=== PATIENT | male | born 1940 | race Caucasian/White ===

== ENCOUNTER 2017-02-27 12:51 | Outpatient (RCR) | payer MEDICARE, OTHER | END 2017-03-03 | disposition home or self-care (01) | PROVIDERS: ATTEND Family Medicine | DX: M15.0 Primary generalized (osteo)arthritis; M25.551 Pain in right hip ==

== ENCOUNTER 2017-11-28 14:03 | Inpatient (IN) | payer MEDICARE, OTHER ==
[~2017-11-28] VITALS: Ht 190.5 cm; Wt 122.3 kg
[2017-11-28 17:00] VITALS: BP 107/65
[2017-11-28] MEDS ORDERED: IBUPROFEN TABLET 200 MG TAB PO PRN (17:15)
[2017-11-28] MEDS ORDERED: DIAZEPAM 5 MG (VALIUM) TABLET PO PRN (17:15)
--- NOTE | 2017-11-28 18:00 | HISTORY AND PHYSICAL ---
DATE OF SERVICE: 11/28/2017 CHIEF COMPLAINT: Difficulty with walking. HISTORY OF PRESENT ILLNESS: The patient is a 77-year-old male who has had progressive difficulty with managing home alone in [place], but has supportive neighbors who found him unable to stand due to a fall with right knee pain. He was admitted to [facility] on 11/26/2017 and was found to have principal diagnosis of right knee pain after imaging studies done. He was provided with a knee brace. Therapies were begun. He was felt to be appropriate for inpatient rehabilitation. Currently, he requires assistance for his ADLs and mobility skills. 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 He has an abrasion over the right knee and some swelling and tenderness to touch. He is retired from [email or web address].He is min assist for transfers and gait with Fww.He is dependent for lower body dressing and min assist for Upper body dressing PAST MEDICAL HISTORY: Right-sided weakness, has been seen by neurosurgery with no evidence of impingement of cervical spine according to the patient. He has had electrodiagnostic studies with Dr. Horner in the past revealing some nerve impingement in the right arm, explaining for the weakness in his dominant right arm. History of hypertension, GERD. PAST SURGICAL HISTORY: He has had lithotripsy for kidney stones. He also carries a diagnosis of diverticulosis and right carpal tunnel syndrome. He states his right knee demetrius when he walks. ALLERGIES: No known medication allergies. FAMILY HISTORY: Noncontributory. SOCIAL HISTORY: Essentially as per above. REVIEW OF SYSTEMS: A 10-point review of systems significant for right knee pain, right arm weakness, falls. MEDICATIONS: Cranberry 400 mg p.o. daily, diazepam 5 mg p.o. q.6 hours as needed for anxiety, Cymbalta 30 mg p.o. daily, ibuprofen 400 mg p.o. q.6 hours as needed for pain, omeprazole 60 mg p.o. daily, vitamin B6 50 mg p.o. daily, valsartan/hydrochlorothiazide 160/12.5 mg one tablet p.o. daily. PHYSICAL EXAMINATION: GENERAL: Very pleasant male, appearing his stated age, lying in bed, in no acute distress. VITAL SIGNS: Within normal limits. He is afebrile. HEENT: Vision, speech, hearing grossly intact. No oral lesion is noted. NECK: Supple without mass. HEART: Regular rhythm. CHEST: Clear. ABDOMEN: Soft, nontender, bowel sounds present. EXTREMITIES: He has an abrasion over the right knee. His right leg is in a brace, MUSCULOSKELETAL: He has functional passive range of motion both upper limbs and left lower limb. NEUROLOGIC: He does have a mild weakness on the right as compared to the left upper limb. He is able to plantar and dorsiflex the rightfoot. He has functional strength on the left.Strength good BU Limbs. ROM RT knee 85 degrees and extension +5 degrees. Sensation is grossly intact to touch. Cognition grossly intact. IMPRESSION: 1. Ambulatory dysfunction secondary to fall with resulting right knee strain and abrasion right knee. 2. Right upper limb weakness, felt to be due to impingement syndrome. 3. Reactive anxiety, on medication. 4. Hypertension, controlled with medication. 5. Gastroesophageal reflux disease, on medication. PLAN: The patient will have a comprehensive program of inpatient rehabilitation with goal of maximizing level of functional independence prior to discharge home with family and home health care. The patient will have PT, OT 90 minutes per day each discipline, 5 days a week for 10 days with the above goals in mind. Please see post-admission physician evaluation, which is a separate document for details of plan of care. Speech therapy to do cognitive assessment and treat as indicated. Rehabilitation nursing to assist with bowel, bladder, skin, wound care, medication administration, pain management. office services representative to assist with discharge planning, community reentry. Consult Dr. Lowe to assist with medical management of this out of town patient. ESTIMATED LENGTH OF STAY: 10 days. PROGNOSIS: Rehab prognosis appears fair for goal of discharging back to his home, modified independent to supervision of ADLs and mobility skills. He may need to consider assisted living facility or moving closer to his family upon discharge. His next door neighbors present to unit with him today. DIET: Regular. CODE STATUS: Full code. Job ID: [id number] DocumentID: [id number] Dictated Date: 11/28/2017 17:22:53 Coin Dealer Date: 11/28/2017 17:59:39 Dictated By: KARISSA GIORDANO MD MTDD
--- NOTE | 2017-11-28 19:29 | PM&R Post Admission Assessment ---
Post Admission Physician Asses Date seen by provider: Nov 28, 2017 Time seen by provider: 19:00 Admisison Dx: (1) Knee strain Status: Acute The preadmission screen agrees with the post admission assessment that the patient is a good candidate for inpatient rehabilitation. The patient will have a comprehensive program of inpatient rehabilitation with a goal of maximizing level of functional independence prior to discharge home with family and HHC. The patient will have PT/OT ninety minutes per day, each discipline, five days a week for gait, strengthening, conditioning, balance, ADLs, any patient/family/caregiver training as necessary. Speech therapy to do cognitive assessment and treat as indicated. Rehabilitation nursing to assist with bowel, bladder, skin, wound care, medication administration, pain management. Wood Casket Maker to assist with discharge planning, community reentry. SCD's for DVT prophylaxis. He appears to be well motivated to participate in three hours of therapy a day. He should be able to tolerate three hours of therapy a day from a medical standpoint. He should benefit from the three hours of therapy a day. He has a reasonable discharge plan, reasonable discharge rehabilitation goals and a supportive family. He has various comorbidities that need to be closely monitored with medications and treatments adjusted on a daily basis as needed. These include: HTN GERD CTS Barriers to discharge for this patient who had been independent prior to this are for him to be modified independent to supervision for ADLs and mobility skills prior to discharge home with family and HHC, so as to lessen the burden of the caregivers. Risks for this patient include: 1. Fall 2. Fracture 3. DVT 4. Pulmonary embolism 5. Wound infection 6. Skin breakdown 7. Contractures 8. Poorly controlled pain 9. Urinary retention 10. UTI 11. Respiratory infection 12. Aspiration 13. Poorly controlled HTN 14. Worsening pain and knee contractures Estimated Length of Stay: 14 days Prognosis: Rehab prognosis appears good for goal of discharge home with family and HHC modified independent to supervision for ADLs and mobility skills. General: Alert, Oriented X3, Cooperative, No Acute Distress HEENT: Atraumatic, PERRLA, EOMI, Mucous Memb Moist/[place] Neck: Supple, No JVD Lungs: Clear to Auscultation Heart: Regular Rate Abdomen: Normal Bowel Sounds, Soft, No Tenderness Extremities: Other (swelling rt knee) Skin: Other (Abrasion rt knee) Neuro: Other (Good - strength RUE Good on left Rt Knee in brace Cognitively intact) KARISSA GIORDANO MD Nov 28, 2017 19:29
[2017-11-28] MEDS ORDERED: PREPARATION H OINTMENT 57 GR TUBE PR PRN (19:30)
[2017-11-28] MEDS ORDERED: HEMORRHOIDAL SUPP (PREPARATION H) PR PRN (19:30)
[2017-11-28] MEDS: HYDROcodone/APAP 7.5 MG/325 MG (LORTAB, LORCET PLUS) TABLET PO PRN (20:17)
[2017-11-29 05:09] VITALS: BP 126/74
[2017-11-29] MEDS: PYRIDOXINE (VITAMIN B-6) 50 MG TABLET PO SCH (06:37)
[2017-11-29] MEDS: PANTOPRAZOLE 20 MG TABLET (PROTONIX) PO SCH (06:37)
[2017-11-29] MEDS: HYDROcodone/APAP 7.5 MG/325 MG (LORTAB, LORCET PLUS) TABLET PO PRN ×2 (06:39→17:38)
[2017-11-29] MEDS: DULoxetine 30 MG (CYMBALTA) CAP PO SCH (08:39)
[2017-11-29] MEDS: VALSARTAN 160 MG (DIOVAN) TABLET PO SCH (08:39)
[2017-11-29] MEDS: HYDROCHLOROTHIAZIDE 12.5 MG (HCTZ) CAP PO SCH (08:39)
--- NOTE | 2017-11-29 08:39 | Consultation ---
History of Present Illness History of Present Illness Patient Consulted On(nguyễn/time) 11/29/17 08:31 Time Seen by Provider: 08:30 History of Present Illness Chief complaint debility. Problem with his right knee. Wears a brace. Patient lives alone. Patient has carpal tunnel of his right upper extremity. Patient associates surgery year ago. Patient has dizziness. Patient now constipated does take hydrocodone for pain. Patient has history of hypertension. Patient has history of GERD. One year ago patient had cystoscopy Allergies and Home Medications Allergies Coded Allergies: No Known Drug Allergies (Unverified , 11/28/17) Patient Home Medication List Home Medication List Reviewed: Yes Past Anarsex-Jznvsy-Fozbbs Hx Patient Social History Alcohol Use: Denies Use Recreational Drug Use: No Smoking Status: Former Smoker Former Smoker, Quit: Jun 04, 2005 Recent Foreign Travel: No Contact w/Someone Who Travel: No Recent Infectious Disease Expo: No Recent Hopitalizations: Yes (Ana VALENTIN) Immunizations Up To Date Date of Pneumonia Vaccine: Mar 30, 2017 Seasonal Allergies Seasonal Allergies: No Past Medical History Respiratory: Yes (uses Albuterol inhaler prn, not often) Currently Using CPAP: No Cardiac: Yes Neurological: No Genitourinary: Yes (sees Dr. Win as urologist, has 1 stone & 1 cyst in Lt kidney) Kidney Stones Gastrointestinal: Yes (sees Dr. Asif, had a scope recently was -) Gastroesophageal Reflux, Diverticulosis Musculoskeletal: Yes (Rt knee demetrius, falls) Arthritis, Chronic Back Pain Endocrine: No HEENT: No (wears glasses) Hearing Impairment: Denies Cancer: No Psychosocial: No Sleep Difficulties, Anxiety Integumentary: Yes (scraped knees from falls) Recent Skin Changes Blood Disorders: No Adverse Reaction/Blood Tranf: No Review of Systems-General Constitutional: weakness, other (Right knee pain, right arm weakness) EENTM: no symptoms reported Respiratory: no symptoms reported Cardiovascular: no symptoms reported Gastrointestinal: no symptoms reported Genitourinary: no symptoms reported Physical Exam-General Problems Physical Exam Vital Signs Vital Signs - First Documented 11/28/17 17:00 Temp 97.9 Pulse 84 Resp 20 B/P (MAP) 107/65 (79) Pulse Ox 96 O2 Delivery Room Air Capillary Refill : General Appearance: WD/WN, no apparent distress Eyes: Bilateral Eye Normal Inspection HEENT: normal ENT inspection Neck: non-tender, full range of motion, normal inspection Respiratory: lungs clear, no respiratory distress, no accessory muscle use Cardiovascular: regular rate, rhythm, no murmur Gastrointestinal: non tender, soft Assessment/Plan Assessment/Plan Admission Diagnosis/Plan Debility. Right carpal tunnel. Hypertension. GERD. Right knee pain. Lives alone. Unable to take care of himself Admission Status: Inpatient Order (span 2 midnights) Reason for Inpatient Admission: Debility. Unable to take care of himself. Right knee problem. Right upper extremity problem Clinical Quality Measures DVT/VTE Risk/Contraindication: Risk Factor Score Per Nursin RFS Level Per Nursing on Admit: 4+=Very High JENNIFER SANTOYO DO Nov 29, 2017 08:39
--- NOTE | 2017-11-29 10:12 | ST Cognitive Linguistic Eval ---
Speech Evaluation-General Medical Diagnosis Debility Therapy Diagnosis Therapy Diagnosis: Cognitive Linguistic Skills WNL Precautions Precautions/Isolations: Fall Prevention, Standard Precautions Referral Referring Physician: Dr. Rubén Childress Reason for Referral: Evaluation/Treatment Cognitive Evaluation Medical History Pertinent Medical History: Arthritis, GERD Reviewed History: Yes Speech PLF-Current Status Prior Level of Function The patient denied prior challenges with speech, language, or cognition. Subjective The patient was seated upright in chair upon entrance. The patient greeted the clinician and was agreeable to participation in the cognitive evaluation. Language Eval: Auditory Comprehends Simple Yes/No Ques: Functional Indent/Objects Multiple Canas: Functional Ident/Pics in Multiple Canas: Functional Follows 1-Step Commands: Functional Follows Complex Directions: Functional Follows General Conversations: Functional Language Eval: Verbal Language Completes Spontaneous Greeting: Functional Produces Auto, Serial Info: Functional Imitates Simple Words/Phrases: Functional Word Finding: Functional Requests Basic Needs: Functional States Basic Personal Info: Functional Expresses Complex Ideas: Functional Cognitive Patient Orientation The patient was independently oriented to self, location, month, day of week, and year. Objective Cognitive Domain Attention: WNL Memory: WNL Problem Solving: Functional Objective Impression The patient demonstrated cognitive linguistic skills within normal limits. Communication/Social Cognition Comprehension: 6 (Glasses.) Expression: 7 Social Interaction: 7 Problem Solvin Memory: 6 Speech Patient Assess Expression of Ideas/Wants: Expression (4) Understanding Verbal Content: Understands (4) Brief Interview-Mental Status: Yes Repetition of Three Words: Three (3) Temporal Orientation: Year: Correct (3) Temporal Orientation: Month: Accurate within 5 days(2) Temporal Orientation: Day: Correct (1) Recall : Wear to say "Sock": Yes,after cueing (1) Recall : Color: Yes, no cue required (2) Recall : Bed: Yes,after cueing (1) Speech-Plan Treatment Plan Speech Therapy Treatment Plan: Discontinue ST No ST warranted. Frequency: Modified Program (IRF) (No ST warranted.) Estimated Hrs Per Day: Other (No ST warranted.) Rehab Potential: Good Safety Risks/Education Teaching Recipient: Patient Teaching Methods: Discussion Response to Teaching: Verbalize Understanding Education Topics Provided: Results, Recommendations, Plan of Care Time Speech Therapy Time In: 10:15 Speech Therapy Time Out: 10:30 Total Billed Time: 15 Billed Treatment Time ZENIA Howell [facility] ST Nov 29, 2017 10:12
[2017-11-29] MEDS ORDERED: MILK OF MAGNESIA 400 MG/5 ML 30 ML UDC PO PRN (10:30)
--- NOTE | 2017-11-29 14:50 | Physical Therapy Evaluation ---
PT Evaluation-General Medical Diagnosis Admission Date Nov 28, 2017 at 17:00 Medical Diagnosis: Debility Onset Date: Nov 26, 2017 Therapy Diagnosis Therapy Diagnosis: impaired mobility, strength, endurance Height/Weight Height (Feet): 6 Height (Inches): 3.00 Weight (Pounds): 267 Weight (Ounces): 1.0 Precautions Precautions/Isolations: Fall Prevention, Standard Precautions Referral Physician: [place] Reason for Referral: Evaluation/Treatment Medical History Pertinent Medical History: Arthritis, GERD Additional Medical History PAST MEDICAL HISTORY: Right-sided weakness, has been seen by neurosurgery with no evidence of impingement of cervical spine according to the patient. He has had electrodiagnostic studies with Dr. Horner in the past revealing some nerve impingement in the right arm, explaining for the weakness in his dominant right arm. History of hypertension, GERD. PAST SURGICAL HISTORY: He has had lithotripsy for kidney stones. He also carries a diagnosis of diverticulosis and right carpal tunnel syndrome. He states his right knee demetrius when he walks. Current History The patient is a 77-year-old male who has had progressive difficulty with managing home alone in [place], but has supportive neighbors who found him unable to stand due to a fall with right knee pain. He was admitted to [facility] on 11/26/2017 and was found to have principal diagnosis of right knee pain after imaging studies done. He was provided with a knee brace. Reviewed History: Yes Social History Home: Single Level Current Living Status: Alone PT Steps Into Home: 1 Prior/Core FIM Prior Level of Function Functional [place] Measure 0=Not Assessed/NA 4=Minimal Assistance 1=Total Assistance 5=Supervision or Setup 2=Maximal Assistance 6=Modified [place] 3=Moderate Assistance 7=Complete [place] Bed Mobility: 6 Transfers (B,C,W/C) (FIM): 6 Gait: 6 PT Evaluation-Current Subjective Patient in bed pre tx, agrees to PT, has no pain at rest but has 4/10 pain with activity in right knee. Pt/Family Goals to be independent at home Objective Patient Orientation: Normal For Age right leg brace ROM/Strength ROM Lower Extremities right knee flexion 85 degrees, extension +5 degrees Strenght Lower Extremities NT Neuromuscular (Tone, Coordination, Reflexes) NT Sensory Vision: Wears Glasses Hearing: Functional Sensation Right Lower Extremit: Intact Sensation Left Lower Extremity: Intact Transfers Functional [place] Measure 0=Not Assessed/NA 4=Minimal Assistance 1=Total Assistance 5=Supervision or Setup 2=Maximal Assistance 6=Modified [place] 3=Moderate Assistance 7=Complete IndependenceIRFPAI Quality Coding Scale 6 Independent with activity with or without an assistive device 5 Patient requires set up or clean up by helper. Patient completes activity by themselves 4 Supervision or touching assist (CGA). [place] provide cues , steadying assist 3 The helper provides less than half the effort to complete the activity 2 The helper provides more than half the effort to complete the activity 1 Dependent. The helper does all the effort to complete an activity 7 Patient refused to complete or attempt activity 9 The patient did not perform the activity before the current illness or injury 88 Not attempted due to Medical conditions or safety concerns Transfers (B, C, W/C) (FIM): 2 Scootin Rollin Roll Left to Right (QC): 4 Supine to/from Sit: 4 Sit to/from Stand: 2 bed t/f WC(FIM only if WC use): 4 Sit to Lying (QC): 3 Lying to Sitting/Side of Bed(Q: 3 Sit to Stand (QC): 2 Chair/Gpm-uc-Xzxdc Xfer(QC): 4 Car Transfer (QC): 88 Patient performs supine <-> sit with min assist (needs assist getting his right leg into and out of bed), sit to stand with max assist, stand pivot transfer with CGA. Patient cannot perform a car transfer at this time because of his right leg brace which keeps his leg in full extension. Gait Does the Patient Walk?: Yes Mode of Locomotion: Walk Anticipated Mode of Locomotion: Walk Gait (FIM): 1 Walk 10 feet (QC): 4 Walk 50 ft with 2 Turns(QC): 88 Walk 150 ft (QC): 88 Walking 10ft/uneven surface-QC: 4 Distance: 20'x2 Gait Level of Assist: 4 Gait Persons Needed: 1 Gait Assistive Device: FWW Comments/Gait Description Patient ambulated 20' with a rolling walker with CGA, including 10' over an uneven surface. Patient ambulates antalgically, small quick steps, unsteady. Wheelchair Training Does the Pt Use a Wheelchair?: Yes Wheelchair (FIM): 2 Distance: 50' Wheelchair Level of Assist: 5 Wheel 50 ft with 2 turns (QC): 4 Wheel 150 ft (QC): 88 Type of Wheelchair: Manual Patient can propel a manual wheelchair 50' with SBA. He fatigues quickly due to shoulder and carpal tunnel issues. Stairs If not tested on admit;explain Patient cannot perform stairs safely at this time due to knee buckling. Balance Sitting Static: Normal Sitting Dynamic: Normal Standing Static: Fair Standing Dynamic: Fair Assessment/Needs Patient has impaired mobility, strength, endurance. He wears a knee immobilizer on the right side. Rehab Potential: Fair PT Short Term Goals Short Term Goals Time Frame: Dec 06, 2017 Transfers (B,C,W/C) (FIM): 4 Gait (FIM): 2 Gait Distance Comment: 50' Gait Level of Assist: 4 Gait Assistive Device: FWW PT Breaker Hand Goals Breaker Hand Goals PT Chcf Goals Time Frame: Dec 20, 2017 Transfers (B,C,W/C) (FIM): 5 Sit to Lying (QC): 4 Lying-Sitting on Side/Bed(QC): 4 Sit to Stand (QC): 4 Rollin Roll Left to Right (QC): 4 Chair/Alo-cq-Xngeu Xfer(QC): 4 Car Transfer (QC): 4 Gait (FIM): 5 Distance: 150' Walk 10 feet (QC): 4 Walk 10ft-Uneven Surface(QC): 4 Walk 50ft with 2 Turns (QC): 4 Walk 150 ft (QC): 4 Gait Level of Assist: 5 Gait Assistive Device: FWW Stairs (FIM): 2 # of Steps: 4 1 Step (curb) (QC): 4 4 Steps (QC): 4 Stairs Level Of Assist: 4 PT Plan Problem List Problem List: Activity Tolerance, Functional Strength, Safety, Balance, Gait, Transfer, Bed Mobility, ROM Treatment/Plan Treatment Plan: Continue Plan of Care Treatment Plan: Bed Mobility, Education, Functional Activity Tariq, Functional Strength, Group Therapy, Gait, Safety, Therapeutic Exercise, Transfers Treatment Duration: Dec 20, 2017 Frequency: At least 5 of 7 days/Wk (IRF) Estimated Hrs Per Day: 1.5 hours per day Patient and/or Family Agrees t: Yes Safety Risks/Education Patient Education: Gait Training, Transfer Techniques, Correct Positioning, W/ C Management, Safety Issues Teaching Recipient: Patient Teaching Methods: Demonstration, Discussion Response to Teaching: Reinforcement Needed Discharge Recommendations Plan Patient will perform bed mobility and transfer training, balance and endurance training, functional strengthening, stair training, gait training, and education , to improve functional mobility and independence at home. Therapy D/C Recommendations: Home w/ Family Support Time/GCodes Time In: 1100 Time Out: 1200 Total Billed Treatment Time: 60 Total Billed Treatment 1 visit [facility] 30' [facility] 15' GT 15' BLAIR SCHULZ PT Nov 29, 2017 14:50
--- NOTE | 2017-11-29 15:02 | Physical Therapy Daily Note ---
PT Daily Note-Current Subjective Patient in bed pre tx, agrees to PT, no complaints of pain at rest, patient needs to use the restroom. Appearance Patient BTB post tx with nurse call, phone, tray, all needs met. Mental Status Patient Orientation: Normal For Age right knee immobilizer Transfers Functional [place] Measure 0=Not Assessed/NA 4=Minimal Assistance 1=Total Assistance 5=Supervision or Setup 2=Maximal Assistance 6=Modified [place] 3=Moderate Assistance 7=Complete IndependenceIRFPAI Quality Coding Scale 6 Independent with activity with or without an assistive device 5 Patient requires set up or clean up by helper. Patient completes activity by themselves 4 Supervision or touching assist (CGA). [place] provide cues , steadying assist 3 The helper provides less than half the effort to complete the activity 2 The helper provides more than half the effort to complete the activity 1 Dependent. The helper does all the effort to complete an activity 7 Patient refused to complete or attempt activity 9 The patient did not perform the activity before the current illness or injury 88 Not attempted due to Medical conditions or safety concerns Transfers (B, C, W/C) (FIM): 3 Scootin Rollin Supine to/from Sit: 4 Sit to/from Stand: 3 Bed to/from Chair: 4 Wheelchair Training Wheelchair (FIM): 2 Distance: 50' Wheelchair Level of Assist: 5 Type of Wheelchair: Manual Exercises Standing: Heel/toe raises, 3 way Ex=Flex, Abd, Ext Standing Reps: 15 Treatments bed mobility and transfers, wheelchair mobility, functional strengthening, patient was toileted once Assessment Current Status: Fair Progress improved sit to stand PT Short Term Goals Short Term Goals Time Frame: Dec 06, 2017 Transfers (B,C,W/C) (FIM): 4 Gait (FIM): 2 Gait Distance Comment: 50' Gait Level of Assist: 4 Gait Assistive Device: FWW Wheelchair Distance: 50' PT Snf Goals Snf Goals PT Spray Worker Goals Time Frame: Dec 20, 2017 Transfers (B,C,W/C) (FIM): 5 Sit to Lying (QC): 4 Lying-Sitting on Side/Bed(QC): 4 Sit to Stand (QC): 4 Rollin Roll Left to Right (QC): 4 Chair/Hfw-wq-Kfyaj Xfer(QC): 4 Car Transfer (QC): 4 Gait (FIM): 5 Distance: 150' Walk 10 feet (QC): 4 Walk 10ft-Uneven Surface(QC): 4 Walk 50ft with 2 Turns (QC): 4 Walk 150 ft (QC): 4 Gait Level of Assist: 5 Gait Assistive Device: FWW Stairs (FIM): 2 # of Steps: 4 1 Step (curb) (QC): 4 4 Steps (QC): 4 Stairs Level Of Assist: 4 PT Plan Problem List Problem List: Activity Tolerance, Functional Strength, Safety, Balance, Gait, Transfer, Bed Mobility, ROM Treatment/Plan Treatment Plan: Continue Plan of Care Treatment Plan: Bed Mobility, Education, Functional Activity Tariq, Functional Strength, Group Therapy, Gait, Safety, Therapeutic Exercise, Transfers Treatment Duration: Dec 20, 2017 Frequency: At least 5 of 7 days/Wk (IRF) Estimated Hrs Per Day: 1.5 hours per day Patient and/or Family Agrees t: Yes Safety Risks/Education Patient Education: Transfer Techniques, Correct Positioning, W/C Management, Safety Issues Teaching Recipient: Patient Teaching Methods: Demonstration, Discussion Response to Teaching: Reinforcement Needed Time/GCodes Time In: 1400 Time Out: 1430 Total Billed Treatment Time: 30 Total Billed Treatment 1 visit [facility] 15' EX 15' BLAIR SCHULZ PT Nov 29, 2017 15:02
--- NOTE | 2017-11-29 15:30 | PM & R (SOAP) Progress Note ---
Subjective This was a face to face visit with the patient. Date Seen by Provider: Nov 29, 2017 Time Seen by Provider: 08:00 Subjective/Events-last exam Patient was seen in his room this AM Patient Min to mod assist for transfers.Adjusting well to unit Objective Physician Exam Last Set of Vital Signs Vital Signs Date Time Temp Pulse Resp B/P (MAP) Pulse Ox O2 Delivery O2 Flow Rate FiO2 11/29/17 09:00 Room Air 11/29/17 05:09 97.5 72 17 126/74 (91) 95 Capillary Refill : I&O Intake and Output 11/29/17 00:00 Daily Weight Change No General: Alert, Oriented X3, Cooperative, No Acute Distress HEENT: Atraumatic, PERRLA, EOMI, Mucous Memb Moist/[place] Neck: Supple, No JVD Lungs: Clear to Auscultation Heart: Regular Rate Abdomen: Normal Bowel Sounds, Soft, No Tenderness Extremities: Other (swelling rt knee) Skin: Other (Abrasion rt knee) Neuro: Other (Good - strength RUE Good on left Rt Knee in brace Cognitively intact) Assessment/Plan Assessment and Plan Rt knee strain s/p fall Rt upper limb weakness felt to be due to impingement syndrome Reactive anxiety on meds HTN controlled with meds GERD on med Plan Continue PT/OT Appreciate Dr Burt note SW to follow up with patient and family re discharge options if unable to return home alone Team Conference next week (1) Knee strain Status: Acute Co-Morbidities that are continuing to impact the rehab process: (include details ) KARISSA GIORDANO MD Nov 29, 2017 15:30
--- NOTE | 2017-11-29 15:36 | Individualized Plan of Care ---
Individualized Plan of Care Rehab Nursing IPOC Order Admission Date Nov 28, 2017 at 5:00 pm Current Orders Orders Admission Order(Inpt,Obs,Sdc) (11/28/17 17:03) Applications Support Engineer-Inpt Rehab Con (11/28/17 17:03) Rehab Nursing Orders-Ipoc (11/28/17 17:03) Physical Therapy Rehab Orders (11/28/17 17:03) Occupational Therapy Rehab Ord (11/28/17 17:03) Speech Therapy Rehab Orders (11/28/17 17:03) General/Regular (11/29/17 Breakfast) Turn And Reposition Q2HR (11/28/17 17:03) Precautions (Aru) (11/28/17 17:03) Weekly Weight (Lbs) WEEK (11/28/17 17:03) Consult Physician (11/28/17 17:09) Diazepam Tablet (Valium Tablet) (11/28/17 17:15) Duloxetine Capsule (Cymbalta Capsule) (11/29/17 09:00) Ibuprofen Tablet (Motrin Tablet) (11/28/17 17:15) Pantoprazole Tablet (Protonix Tablet) (11/29/17 07:00) Pyridoxine Tablet (Vitamin B-6 Tablet) (11/29/17 07:00) Hydrochlorothiazide Cap/Tablet (Hctz Cap (11/29/17 09:00) Admission Arrival Bed Request (11/28/17 17:25) Ambulate TID (11/28/17 17:46) Sequential Compression Device 08,20 (11/28/17 17:46) Dvt/Vte Risk - Notifiy Physici 08 (11/28/17 17:46) Valsartan Tablet (Diovan Tablet) (11/29/17 09:00) General/Regular (11/28/17 Dinner) Hydrocodone/Apap 7.5/325 Tab (Lortab 7. (11/28/17 19:30) Phenyleph/Mineral Oil/Petrolat (Hemorrho (11/28/17 19:30) Phenylephrine Hcl/[place] Butter (Preparat (11/28/17 19:30) Consult Wound Care Physician (11/28/17 19:34) Comprehensive Metabolic Panel (11/30/17 06:00) Cbc No Diff (11/30/17 06:00) Patient Visit (11/29/17 ) Speech Sound Lang Comp (11/29/17 ) Polyethylene Glycol Powder Pkt (Miralax (11/29/17 21:00) Senna S Tablet (Senokot S Tablet) (11/29/17 21:00) Magnesium Hydroxide Oral Susp (Mom Oral (11/29/17 10:30) Rehab Nursing Orders: Ongoing Assess. of Cognitive Status, Ongoing Assess. of Function Status, Disease Management & Educaiton, DVT Prophylaxis, Fall Prevention, Fluid/Electrolyte/Nutrition Mgmt, Infection Prevention, Medication Management & Education, Management of Risks & Complications, Management of Skin Intergrity, Nutrition Management, Pain Management, Patient/Family Support Other Nursing Orders: Monitor for urinary retention and constipation PT IPOC Problem List: Activity Tolerance, Functional Strength, Safety, Balance, Gait, Transfer, Bed Mobility, ROM Treatment Plan: Continue Plan of Care Bed Mobility, Education, Functional Activity Tariq, Functional Strength, Group Therapy, Gait, Safety, Therapeutic Exercise, Transfers Treatment Duration: Dec 20, 2017 Frequency: At least 5 of 7 days/Wk (IRF) Estimated Hrs Per Day: 1.5 hours per day OT IPOC Problems: Decreased Activ Tolerance, Dependent Transfers, Impaired Bed Mobility , Impaired Funct Balance, Impaired I ADL's, Impaired Self-Care Skills OT Treatment, Training and Edu: Yes Plan of Care: ADL Retraining, Caregiver Training, Concurrent Therapy, Functional Mobility, UE Neuromus Re-Ed/Coord, W/C Management Training Treatment Duration: Dec 20, 2017 Frequency: 5 times per week Estimated Hrs Per Day: 1.[address] IPOC Speech Therapy Treatment Plan: Discontinue ST Treatment Duration: Nov 29, 2017 Frequency: Modified Program (IRF) (No ST warranted.) Estimated Hrs Per Day: Other (No ST warranted.) Applications Support Engineer/Case Mgmt Applications Support Engineer/Case Managemen: Discharge Planning, Patient/Family Counseling Dietitian/Branch Store Manager Dietitian/Branch Store Manager to monitor nutritional status and make changes and/or recommendations as needed and work with speech pathology on dietary upgrades as the occur. Physician IPOC Medical Issues being managed closely and that require the 24 hour availability of a physician: RT knee strain repeated falls Weakness on rt Reactive anxiety HTN GERD Medical Issues: DVT Prophylaxis, Falls Precautions, Fluid/Electrolyte/ Nutrition Balance, Infection Protection, Pain Management, Wound Care, Other ( List) (as per above) Brief Synthesis of Preadmission Screen, Post-Admission Evaluation, and Therapy Evaluations: 77 yo male who lives alone who fell with resulting rt knee strain/ sprain and fitted with a knee brace at OSH and referred here for rehab Has HX of rt sided weakness and falls Patient had studies done at OSH in [place] suggesting nerve impingement RUE.Had been Indpendent until recently.PMH HTN GERD Medical Prognosis: Fair Anticipated Length of Stay: 12-20-17 Modified Independent to supervsion for adls and mobility skills Anticipated d/c Destination: Home with HHC and family vs KARISSA MCDUFFIE MD Nov 29, 2017 3:36 pm
--- NOTE | 2017-11-29 16:55 | Occupational Therapy Eval ---
OT Evaluation-General/PLF Medical Diagnosis Admission Date Nov 28, 2017 at 17:00 Medical Diagnosis: Debility Onset Date: Nov 26, 2017 Therapy Diagnosis Therapy Diagnosis: Weakness Height/Weight Height (Feet): 6 Height (Inches): 3.00 Weight (Pounds): 267 Weight (Ounces): 1.0 Precautions Precautions/Isolations: Fall Prevention, Standard Precautions Safety Interventions: None Weight Bear Status Weight Bearing Restriction: Weight Bearing/Tolerated Referral Physician: [place] Referral Reason: Activity Tolerance, Self Care, Evaluation/Treatment, Strengthening/ROM Referral Comments Pt. has knee brace on right LE to be worn at all times. Medical History Pertinent Medical History: Arthritis, GERD, HTN Additional Medical History Right CTS. Current History Pt. has complicated history of dizziness and right sided weakness. Pt. reports that he has been checked out by heart, lung, and neuroloy specialists. States that no one can really find out why he has had increasing weakness in right LE. States that he fell at home and hurt his knee. Ambulance came for him after multiple neighbors could not get him up. Reviewed History: Yes Social History Home: Single Level Current Living Status: Alone Steps Into Home: 1 ADL-Prior Level of Function ADL PLOF Comments Pt. states that he was independent with all daily tasks. States that he drives but it is becoming increasingly difficult. DME/Equipment: Shower DME/Equipment Comments Pt. has two walkers but uses a cane to get around with. Drive Self: Yes OT Current Status Subjective Pt. reports pain in right LE but does not state pain level. States that he has had a pain pill. Appearance Pt. in bathroom when OT came in. Declines showering but agrees to spongebathe. Mental Status/Objective Patient Orientation: Person, Place, Time, Situation Current Glasses/Contacts: Yes Hand Dominance: Right Upper Extremity ROM Pt. has limited ROM in right shoulder. Pt. also has "severe" CTS in right UE. Full ROM noted in left shoulder. Upper Extremity Strength Right UE- 2/5 Left UE- 3/5 ADL-Treatment Functional [place] Measure 0=Not Assessed/NA 4=Minimal Assistance 1=Total Assistance 5=Supervision or Setup 2=Maximal Assistance 6=Modified [place] 3=Moderate Assistance 7=Complete IndependenceIRFPAI Quality Coding Scale 6 Independent with activity with or without an assistive device 5 Patient requires set up or clean up by helper. Patient completes activity by themselves 4 Supervision or touching assist (CGA). [place] provide cues , steadying assist 3 The helper provides less than half the effort to complete the activity 2 The helper provides more than half the effort to complete the activity 1 Dependent. The helper does all the effort to complete an activity 7 Patient refused to complete or attempt activity 9 The patient did not perform the activity before the current illness or injury 88 Not attempted due to Medical conditions or safety concerns Eating (FIM): 5 Eating (QC): 5 Grooming (FIM): 5 Oral Hygiene (QC): 4 Bathing (FIM): 4 (Required assistance to bathe bilateral feet.) Shower/Bathe Self (QC): 4 Upper Body Dressing (FIM): 5 Upper Body Dressing (QC): 2 (Pt. unable to reach feet due to right knee brace and right LE in extension.) Lower Body Dressing (FIM): 2 Lower Body Dressing (QC): 2 On/Off Footwear (QC): 2 Toileting (FIM): 4 Toileting Hygiene (QC): 4 Transfers (B, C, W/C) (FIM): 4 Toilet/Commode Transfer (FIM): 4 Toilet Transfer (QC): 4 Shower Transfer (FIM): 9 Education OT Patient Education: Correct positioning, Modified ADL techniques, Progress toward Goal/Update tx plan, Purpose of tx/functional activities, Reviewed precautions, Rehab process, Transfer techniques Teaching Recipient: Patient Teaching Methods: Demonstration, Discussion Response to Teaching: Verbalize Understanding, Return Demonstration OT Short Term Goals Short Term Goals Time Frame: Dec 06, 2017 Eating(FIM): 5 Grooming(FIM): 5 Bathing(FIM): 5 Upper Body Dressing(FIM): 5 Lower Body Dressing(FIM): 4 Toileting(FIM): 5 Transfers (B,C,W/C) (FIM): 5 Toilet/Commode Transfer(FIM): 5 Additional Short Term Goals: 1-Demonstrate ADL Tasks, 2-Verbalize Understanding , 3-ImproveStrength/Tariq 1=Demonstrate adherence to instructed precautions during ADL tasks. 2=Patient will verbalize/demonstrate understanding of assistive devices/ modifications for ADL. 3=Patient will improve strength/tolerance for activity to enable patient to perform ADL's. OT Agricultural Research Technician Goals Senior Living Goals Time Frame: Dec 20, 2017 Eating (FIM): 6 Eating (QC): 6 Groomin Oral Hygiene (QC): 6 Bathing(FIM): 5 Shower/Bathe Self (QC): 5 Upper Body Dressing(FIM): 6 Upper Body Dressing (QC): 6 Lower Body Dressing(FIM): 6 Lower Body Dressing (QC): 6 On/Off Footwear (QC): 6 Toileting(FIM): 6 Toileting Hygiene (QC): 6 Transfers (B,C,W/C) (FIM): 6 Toilet/Commode Transfer(FIM): 6 Toilet/Commode Transfer (QC): 6 Shower Transfer(FIM): 5 Additional Goals: 1-Demonstrate ADL Tasks, 2-Verbalize Understanding, 3- ImproveStrength/Tariq 1=Demonstrate adherence to instructed precautions during ADL tasks. 2=Patient will verbalize/demonstrate understanding of assistive devices/ modifications for ADL. 3=Patient will improve strength/tolerance for activity to enable patient to perform ADL's. OT Education/Plan Problem List/Assessment Assessment: Decreased Activ Tolerance, Decreased UE Strength, Dependent Transfers, Impaired Bed Mobility, Impaired Coordination, Impaired Funct Balance , Impaired I ADL's, Impaired Self-Care Skills, Restricted Funct UE ROM Discharge Recommendations Plan/Recommendations: Continue POC Therapy D/C Recommendations: Home w/ Family Support, Occupational Therapy Home Care Equpiment Recommendations-D/C: Bath Chair, Hip Kit Treatment Plan/Plan of Care Treatment,Training & Education: Yes Patient would benefit from OT for education, treatment and training to promote independence in ADL's, mobility, safety and/or upper extremity function for ADL' s. Plan of Care: ADL Retraining, Caregiver Training, Concurrent Therapy, Functional Mobility, Group Exercise/Act as Ind, UE Funct Exercise/Act, UE Neuromus Re-Ed/Coord, W/C Management Training Treatment Duration: Dec 20, 2017 Frequency: At least 5 of 7 days/Wk (IRF) Estimated Hrs Per Day: 1.5 hours per day Agreement: Yes Rehab Potential: Good Time/GCodes Start Time: 09:15 Stop Time: 10:15 Total Time Billed (hr/min): 60 Billed Treatment Time 1, EVH x 15minutes, ADL x 45minutes SARAH TRENT OT Nov 29, 2017 16:55
--- NOTE | 2017-11-29 17:07 | Occupational Ther Daily Note ---
OT Current Status-Daily Note Subjective No pain reported. Appearance Pt. in bed. Agrees to work with OT. Mental Status/Objective Patient Orientation: Person, Place, Time, Situation Functional [place] Measure 0=Not Assessed/NA 4=Minimal Assistance 1=Total Assistance 5=Supervision or Setup 2=Maximal Assistance 6=Modified [place] 3=Moderate Assistance 7=Complete [place] ADL-Treatment Functional [place] Measure 0=Not Assessed/NA 4=Minimal Assistance 1=Total Assistance 5=Supervision or Setup 2=Maximal Assistance 6=Modified [place] 3=Moderate Assistance 7=Complete IndependenceIRFPAI Quality Coding Scale 6 Independent with activity with or without an assistive device 5 Patient requires set up or clean up by helper. Patient completes activity by themselves 4 Supervision or touching assist (CGA). [place] provide cues , steadying assist 3 The helper provides less than half the effort to complete the activity 2 The helper provides more than half the effort to complete the activity 1 Dependent. The helper does all the effort to complete an activity 7 Patient refused to complete or attempt activity 9 The patient did not perform the activity before the current illness or injury 88 Not attempted due to Medical conditions or safety concerns Lower Body Dressing (FIM): 3 (with AE) Lower Body Dressing (QC): 3 On/Off Footwear (QC): 3 Pt. transferred supine-sit with SBA. OT issued AE to increase overall independence with LE dressing and ADLs. Pt. had difficulty using equipment. Doffed/donned socks with dressing stick and sock aide, but had difficulty overall. Pt. also educated on leg retail product advisor, but will practice this at later time. Education OT Patient Education: Correct positioning, Modified ADL techniques, Progress toward Goal/Update tx plan, Purpose of tx/functional activities, Reviewed precautions, Rehab process, Transfer techniques, Use of adapted equipment Teaching Recipient: Patient Teaching Methods: Demonstration, Discussion Response to Teaching: Verbalize Understanding, Return Demonstration OT Short Term Goals Short Term Goals Time Frame: Dec 06, 2017 Eating(FIM): 5 Grooming(FIM): 5 Bathing(FIM): 5 Upper Body Dressing(FIM): 5 Lower Body Dressing(FIM): 4 Toileting(FIM): 5 Transfers (B,C,W/C) (FIM): 5 Toilet/Commode Transfer(FIM): 5 Additional Short Term Goals: 1-Demonstrate ADL Tasks, 2-Verbalize Understanding , 3-ImproveStrength/Tariq 1=Demonstrate adherence to instructed precautions during ADL tasks. 2=Patient will verbalize/demonstrate understanding of assistive devices/ modifications for ADL. 3=Patient will improve strength/tolerance for activity to enable patient to perform ADL's. OT Barber Shop Operator Goals Fpc Goals Time Frame: Dec 20, 2017 Eating (FIM): 6 Eating (QC): 6 Groomin Oral Hygiene (QC): 6 Bathing(FIM): 5 Shower/Bathe Self (QC): 5 Upper Body Dressing(FIM): 6 Upper Body Dressing (QC): 6 Lower Body Dressing(FIM): 6 Lower Body Dressing (QC): 6 On/Off Footwear (QC): 6 Toileting(FIM): 6 Toileting Hygiene (QC): 6 Transfers (B,C,W/C) (FIM): 6 Toilet/Commode Transfer(FIM): 6 Toilet/Commode Transfer (QC): 6 Shower Transfer(FIM): 5 Additional Goals: 1-Demonstrate ADL Tasks, 2-Verbalize Understanding, 3- ImproveStrength/Tariq 1=Demonstrate adherence to instructed precautions during ADL tasks. 2=Patient will verbalize/demonstrate understanding of assistive devices/ modifications for ADL. 3=Patient will improve strength/tolerance for activity to enable patient to perform ADL's. OT Education/Plan Problem List/Assessment Assessment: Decreased Activ Tolerance, Dependent Transfers, Impaired Bed Mobility, Impaired Funct Balance, Impaired I ADL's, Impaired Self-Care Skills Discharge Recommendations Plan/Recommendations: Continue POC Therapy D/C Recommendations: Home w/ Family Support, Occupational Therapy Home Care, Scheduled Assistance Equpiment Recommendations-D/C: Bath Chair, Hip Kit Treatment Plan/Plan of Care Treatment,Training & Education: Yes Patient would benefit from OT for education, treatment and training to promote independence in ADL's, mobility, safety and/or upper extremity function for ADL' s. Plan of Care: ADL Retraining, Caregiver Training, Concurrent Therapy, Functional Mobility, Group Exercise/Act as Ind, UE Funct Exercise/Act, UE Neuromus Re-Ed/Coord, W/C Management Training Treatment Duration: Dec 20, 2017 Frequency: At least 5 of 7 days/Wk (IRF) Estimated Hrs Per Day: 1.5 hours per day Agreement: Yes Rehab Potential: Good Time/GCodes Start Time: 13:30 Stop Time: 14:00 Total Time Billed (hr/min): 30 Billed Treatment Time 1, ADL x 2 SARAH TRENT OT Nov 29, 2017 17:07
[2017-11-29 17:32] VITALS: BP 100/60
[2017-11-29] MEDS: SENNA W/DOCUSATE (SENOKOT S) TABLET PO SCH (20:27)
[2017-11-29] MEDS ORDERED: POLYETHYLENE GLYCOL 17 GM (MIRALAX) PACK PO SCH (21:00)
[2017-11-30 05:16] VITALS: BP 114/74
[2017-11-30] MEDS: PANTOPRAZOLE 20 MG TABLET (PROTONIX) PO SCH (05:22)
[2017-11-30] MEDS: PYRIDOXINE (VITAMIN B-6) 50 MG TABLET PO SCH (05:33)
--- NOTE | 2017-11-30 08:06 | Progress Note (SOAP) ---
Subjective Time Seen by Provider: 08:05 Subjective/Events-last exam Debility. Right knee pain. Right carpal tunnel. Right arm weakness. Patient would like to see orthopedics Objective Exam Vital Signs Date Time Temp Pulse Resp B/P (MAP) Pulse Ox O2 Delivery O2 Flow Rate FiO2 11/30/17 05:16 96.9 76 18 114/74 (87) 95 Room Air 11/29/17 17:32 96.5 66 16 100/60 (73) 94 Room Air 11/29/17 09:00 Room Air I & O 11/30/17 07:00 Intake Total 1200 ml Output Total 150 ml Balance 1050 ml Capillary Refill : General Appearance: No Apparent Distress, WD/WN HEENT: Normal ENT Inspection Neck: Normal Inspection Respiratory: No Accessory Muscle Use, No Respiratory Distress Cardiovascular: Regular Rate, Rhythm Assessment/Plan Assessment/Plan Assess & Plan/Chief Complaint Debility. Right carpal tunnel. Hypertension. GERD. Right knee pain. Lives alone. Unable to take care of himself. . 11/30/17. Debility. Right carpal tunnel. Right knee pain. Hypertension. GERD. Patient lives alone. Patient unable to take care of himself at home Clinical Quality Measures DVT/VTE Risk/Contraindication: Risk Factor Score Per Nursin RFS Level Per Nursing on Admit: 4+=Very High JENNIFER SANTOYO DO Nov 30, 2017 08:06
[2017-11-30 08:07] LABS: HEMOGLOBIN 15.1 G/DL (13.3-17.7); MEAN PLATELET VOLUME 9.6 FL (7.4-10.4); RED BLOOD COUNT 4.67 10^6/uL (4.35-5.85); RED CELL DISTRIBUTION WIDTH 14.2 % (10.0-14.5); WHITE BLOOD COUNT 9.3 10^3/uL (4.3-11.0)
[2017-11-30] MEDS: VALSARTAN 160 MG (DIOVAN) TABLET PO SCH (08:26)
[2017-11-30] MEDS: SENNA W/DOCUSATE (SENOKOT S) TABLET PO SCH ×2 (08:26→19:42)
[2017-11-30] MEDS: HYDROCHLOROTHIAZIDE 12.5 MG (HCTZ) CAP PO SCH (08:26)
[2017-11-30] MEDS: DULoxetine 30 MG (CYMBALTA) CAP PO SCH (08:27)
[2017-11-30 08:41] LABS: ALANINE AMINOTRANSFERASE 31 U/L (0-55); ALBUMIN 4.1 GM/DL (3.2-4.5); ALKALINE PHOSPHATASE 56 U/L (40-136); BILIRUBIN,TOTAL 0.7 MG/DL (0.1-1.0); BUN/CREATININE RATIO 18; CALCIUM 9.1 MG/DL (8.5-10.1); CARBON DIOXIDE 24 MMOL/L (21-32); CHLORIDE 102 MMOL/L (98-107); CREATININE SERUM 1.12 MG/DL (0.60-1.30); GFR ESTIMATED > 60; GLUCOSE 109 MG/DL (70-105); POTASSIUM 3.6 MMOL/L (3.6-5.0); SODIUM 138 MMOL/L (135-145); TOTAL PROTEIN 7.6 GM/DL (6.4-8.2)
--- NOTE | 2017-11-30 09:03 | PM & R (SOAP) Progress Note ---
Subjective This was a face to face visit with the patient. Date Seen by Provider: Nov 30, 2017 Time Seen by Provider: 07:45 Subjective/Events-last exam Patient was seen in his room this AM Patient c/o constipation and requesting Prep H be given will discuss with RN and adjust bowel meds as well see orders. Discussed case with DR Lowe-He would like ortho to evaluate will see who is available.patient min to mod assist for transfers Review of Systems Gastrointestinal: Constipation Musculoskeletal: leg pain Neurological: Weakness Objective Physician Exam Last Set of Vital Signs Vital Signs Date Time Temp Pulse Resp B/P (MAP) Pulse Ox O2 Delivery O2 Flow Rate FiO2 11/30/17 05:16 96.9 76 18 114/74 (87) 95 Room Air Capillary Refill : I&O Intake and Output 11/30/17 00:00 Intake Total 700 ml Output Total 300 ml Balance 400 ml Intake Oral 700 ml Output Urine Total 300 ml # Voids 4 General: Alert, Oriented X3, Cooperative, No Acute Distress HEENT: Atraumatic, PERRLA, EOMI, Mucous Memb Moist/[place] Neck: Supple, No JVD Lungs: Clear to Auscultation Heart: Regular Rate Abdomen: Normal Bowel Sounds, Soft, No Tenderness Extremities: Other (swelling rt knee) Skin: Other (Abrasion rt knee) Neuro: Other (Good - strength RUE Good on left Rt Knee in brace Cognitively intact) Results Lab Data Laboratory Tests 11/30/17 07:55: White Blood Count 9.3, Red Blood Count 4.67, Hemoglobin 15.1, Hematocrit 43, Mean Corpuscular Volume 91, Mean Corpuscular Hemoglobin 32, Mean Corpuscular Hemoglobin Concent 36, Red Cell Distribution Width 14.2, Platelet Count 231, Mean Platelet Volume 9.6, Sodium Level 138, Potassium Level 3.6, Chloride Level 102, Carbon Dioxide Level 24, Anion Gap 12, Blood Urea Nitrogen 20H, Creatinine 1.12, Estimat Glomerular Filtration Rate > 60, BUN/Creatinine Ratio 18, Glucose Level 109H, Calcium Level 9.1, Total Bilirubin 0.7, Aspartate Amino Transf (AST/ SGOT) 24, Alanine Aminotransferase (ALT/SGPT) 31, Alkaline Phosphatase 56, Total Protein 7.6, Albumin 4.1 Assessment/Plan Assessment and Plan Rt Knee strain/sprain s/p fall Rt upper limb weakness due to impingement syndrome Constipation Hemorrhoidal pain Reactive anxiety HTN controlled GERD on med Plan Continue PT/OT Adjust bowel meds Hemorrhoidal cream Check if ortho available for consult Team Conference next week (1) Knee strain Status: Acute Co-Morbidities that are continuing to impact the rehab process: (include details ) KARISSA GIORDANO MD Nov 30, 2017 09:03
[2017-11-30] MEDS ORDERED: BISACODYL 10 MG SUPP (DULCOLAX) PR PRN (09:15)
--- NOTE | 2017-11-30 10:06 | Occupational Ther Daily Note ---
OT Current Status-Daily Note Subjective No pain reported. Appearance Pt. states that he is concerned about his bowels. Pt. has been given laxatives. Mental Status/Objective Patient Orientation: Person, Place Functional [place] Measure 0=Not Assessed/NA 4=Minimal Assistance 1=Total Assistance 5=Supervision or Setup 2=Maximal Assistance 6=Modified [place] 3=Moderate Assistance 7=Complete [place] ADL-Treatment Functional [place] Measure 0=Not Assessed/NA 4=Minimal Assistance 1=Total Assistance 5=Supervision or Setup 2=Maximal Assistance 6=Modified [place] 3=Moderate Assistance 7=Complete IndependenceIRFPAI Quality Coding Scale 6 Independent with activity with or without an assistive device 5 Patient requires set up or clean up by helper. Patient completes activity by themselves 4 Supervision or touching assist (CGA). [place] provide cues , steadying assist 3 The helper provides less than half the effort to complete the activity 2 The helper provides more than half the effort to complete the activity 1 Dependent. The helper does all the effort to complete an activity 7 Patient refused to complete or attempt activity 9 The patient did not perform the activity before the current illness or injury 88 Not attempted due to Medical conditions or safety concerns Grooming (FIM): 5 Bathing (FIM): 4 (Min assist to wash rear obie area.) Shower/Bathe Self (QC): 4 Upper Body (FIM): 5 Upper Body Dressing (QC): 4 Lower Body Dressing (FIM): 2 (Overall, pt. requires max assist to don brace, socks, and shorts.) Lower Body Dressing (QC): 2 On/Off Footwear (QC): 2 Toileting (FIM): 2 (Pt. attempts to toilet multiple times. Requires max assist to wash rear obie area.) Toileting Hygiene (QC): 2 Transfers (B, C, W/C) (FIM): 4 Toilet/Commode Transfer (FIM): 4 Toilet Transfer (QC): 4 Shower Transfer(FIM): 4 Education OT Patient Education: Correct positioning, Modified ADL techniques, Progress toward Goal/Update tx plan, Purpose of tx/functional activities, Reviewed precautions, Rehab process, Transfer techniques, Use of adapted equipment Teaching Recipient: Patient Teaching Methods: Demonstration, Discussion Response to Teaching: Verbalize Understanding, Return Demonstration OT Short Term Goals Short Term Goals Time Frame: Dec 06, 2017 Eating(FIM): 5 Grooming(FIM): 5 Bathing(FIM): 5 Upper Body Dressing(FIM): 5 Lower Body Dressing(FIM): 4 Toileting(FIM): 5 Transfers (B,C,W/C) (FIM): 5 Toilet/Commode Transfer(FIM): 5 Additional Short Term Goals: 1-Demonstrate ADL Tasks, 2-Verbalize Understanding , 3-ImproveStrength/Tariq 1=Demonstrate adherence to instructed precautions during ADL tasks. 2=Patient will verbalize/demonstrate understanding of assistive devices/ modifications for ADL. 3=Patient will improve strength/tolerance for activity to enable patient to perform ADL's. OT Mcc Goals Mcc Goals Time Frame: Dec 20, 2017 Eating (FIM): 6 Eating (QC): 6 Groomin Oral Hygiene (QC): 6 Bathing(FIM): 5 Shower/Bathe Self (QC): 5 Upper Body Dressing(FIM): 6 Upper Body Dressing (QC): 6 Lower Body Dressing(FIM): 6 Lower Body Dressing (QC): 6 On/Off Footwear (QC): 6 Toileting(FIM): 6 Toileting Hygiene (QC): 6 Transfers (B,C,W/C) (FIM): 6 Toilet/Commode Transfer(FIM): 6 Toilet/Commode Transfer (QC): 6 Shower Transfer(FIM): 5 Additional Goals: 1-Demonstrate ADL Tasks, 2-Verbalize Understanding, 3- ImproveStrength/Tariq 1=Demonstrate adherence to instructed precautions during ADL tasks. 2=Patient will verbalize/demonstrate understanding of assistive devices/ modifications for ADL. 3=Patient will improve strength/tolerance for activity to enable patient to perform ADL's. OT Education/Plan Problem List/Assessment Assessment: Decreased Activ Tolerance, Decreased UE Strength, Impaired Bed Mobility, Impaired Funct Balance, Impaired I ADL's, Impaired Self-Care Skills Discharge Recommendations Plan/Recommendations: Continue POC Therapy D/C Recommendations: Home w/ Family Support, Occupational Therapy Home Care Treatment Plan/Plan of Care Treatment,Training & Education: Yes Patient would benefit from OT for education, treatment and training to promote independence in ADL's, mobility, safety and/or upper extremity function for ADL' s. Plan of Care: ADL Retraining, Caregiver Training, Concurrent Therapy, Functional Mobility, Group Exercise/Act as Ind, UE Funct Exercise/Act, UE Neuromus Re-Ed/Coord, W/C Management Training Treatment Duration: Dec 20, 2017 Frequency: At least 5 of 7 days/Wk (IRF) Estimated Hrs Per Day: 1.5 hours per day Agreement: Yes Rehab Potential: Good Time/GCodes Start Time: 09:00 Stop Time: 10:00 Total Time Billed (hr/min): 60 Billed Treatment Time 1, ADL x 4 SARAH TRENT OT Nov 30, 2017 10:06
[2017-11-30] MEDS: HYDROcodone/APAP 7.5 MG/325 MG (LORTAB, LORCET PLUS) TABLET PO PRN (11:57)
--- NOTE | 2017-11-30 12:00 | Physical Therapy Daily Note ---
PT Daily Note-Current Subjective Patient in bed pre tx, agrees to PT, has pain of 3/10 in right knee. Appearance Patient in bed post tx with nurse call, phone, tray, all needs met. Mental Status Patient Orientation: Normal For Age right knee brace Transfers Functional [place] Measure 0=Not Assessed/NA 4=Minimal Assistance 1=Total Assistance 5=Supervision or Setup 2=Maximal Assistance 6=Modified [place] 3=Moderate Assistance 7=Complete IndependenceIRFPAI Quality Coding Scale 6 Independent with activity with or without an assistive device 5 Patient requires set up or clean up by helper. Patient completes activity by themselves 4 Supervision or touching assist (CGA). [place] provide cues , steadying assist 3 The helper provides less than half the effort to complete the activity 2 The helper provides more than half the effort to complete the activity 1 Dependent. The helper does all the effort to complete an activity 7 Patient refused to complete or attempt activity 9 The patient did not perform the activity before the current illness or injury 88 Not attempted due to Medical conditions or safety concerns Transfers (B, C, W/C) (FIM): 4 Scootin Rollin Supine to/from Sit: 4 Sit to/from Stand: 4 Bed to/from Chair: 4 Gait Training Gait (FIM): 4 Distance: 150' Gait Level of Assist: 4 Gait Persons Needed: 1 Gait Assistive Device: FWW Slow, steady, brace on left leg. Exercises NuStep Minutes: 10 NuStep Workload: 3 Treatments Patient was toileted twice for BM. ambulation, functional strengthening and ROM Assessment Current Status: Fair Progress improving ambulation and sit to stand PT Short Term Goals Short Term Goals Time Frame: Dec 06, 2017 Transfers (B,C,W/C) (FIM): 5 Gait (FIM): 2 Gait Distance Comment: 50' Gait Level of Assist: 4 Gait Assistive Device: FWW Wheelchair Distance: 50' PT Detention Goals Turbine Engineer Goals PT Turbine Engineer Goals Time Frame: Dec 20, 2017 Transfers (B,C,W/C) (FIM): 5 Sit to Lying (QC): 4 Lying-Sitting on Side/Bed(QC): 4 Sit to Stand (QC): 4 Rollin Roll Left to Right (QC): 4 Chair/Djy-qo-Zbpbq Xfer(QC): 4 Car Transfer (QC): 4 Gait (FIM): 5 Distance: 150' Walk 10 feet (QC): 4 Walk 10ft-Uneven Surface(QC): 4 Walk 50ft with 2 Turns (QC): 4 Walk 150 ft (QC): 4 Gait Level of Assist: 5 Gait Assistive Device: FWW Stairs (FIM): 2 # of Steps: 4 1 Step (curb) (QC): 4 4 Steps (QC): 4 Stairs Level Of Assist: 4 PT Plan Problem List Problem List: Activity Tolerance, Functional Strength, Safety, Balance, Gait, Transfer, Bed Mobility, ROM Treatment/Plan Treatment Plan: Continue Plan of Care Treatment Plan: Bed Mobility, Education, Functional Activity Tariq, Functional Strength, Group Therapy, Gait, Safety, Therapeutic Exercise, Transfers Treatment Duration: Dec 20, 2017 Frequency: At least 5 of 7 days/Wk (IRF) Estimated Hrs Per Day: 1.5 hours per day Patient and/or Family Agrees t: Yes Safety Risks/Education Patient Education: Gait Training, Transfer Techniques, Correct Positioning, Reviewed Don/Doff Brace, Safety Issues Teaching Recipient: Patient Teaching Methods: Demonstration, Discussion Response to Teaching: Reinforcement Needed Time/GCodes Time In: 1100 Time Out: 1200 Total Billed Treatment Time: 60 Total Billed Treatment 1 visit GT 10' EX 10' FA 40' BLAIR SCHULZ PT Nov 30, 2017 12:00
--- NOTE | 2017-11-30 14:39 | Therapy Group Daily Note ---
Therapy Daily Group Note Exercises Fine Motor, UE Exercise Other/Notes Pt transported via w/c to OT/PT group in [facility]. Group consisted of introductions (name, place living, fun story), socialization, dynamic sitting, fine motor and B UE activities. Pt introduced self appropriately and actively listened to peers. Pt contributed to conversations and began discussions with peers. Pt demonstrated good fine motor skills during activity by isolating thin object, manipulating with digits then placing in designated spot with UE extended against gravity. Pt requested to use bathroom prior to sitting in recliner. Pt was able to stand and urinate with close SBA using FWW. After therapy, pt lying in bed with call light/phone in reach. All needs met in room. Start Time: 13:00 Stop Time: 14:00 Total Billed Treatment Time: 60 Total Billed Treatment 1-GRP JOHNNIE BRAY Nov 30, 2017 14:38
[2017-11-30 17:18] VITALS: BP 112/70
--- NOTE | 2017-11-30 18:27 | Wound Care Assessment ---
Wound Care Assessment Date Seen by Provider: Nov 30, 2017 Time Seen by Provider: 16:20 Chief Complaint Wound L knee. HPI The patient is a 77 year old male who fell approximately a week ago, with injury to his R knee joint and an abrasion to the L knee. Past Medical History: Admits Heart Disease Smoking Status: Former Smoker Recreational Drug Use: No Alcohol Use: Denies Use Review of Systems Musculoskeletal: leg pain Neurological: Weakness Exam Vital Signs Date Time Temp Pulse Resp B/P (MAP) Pulse Ox O2 Delivery O2 Flow Rate FiO2 11/30/17 17:18 96.9 76 16 112/70 (84) 94 Room Air Capillary Refill : General Appearance: no apparent distress Skin: other (6.5 x 8.0 cm abrasion of L knee.) Results Laboratory Tests 11/30/17 07:55: White Blood Count 9.3, Red Blood Count 4.67, Hemoglobin 15.1, Hematocrit 43, Mean Corpuscular Volume 91, Mean Corpuscular Hemoglobin 32, Mean Corpuscular Hemoglobin Concent 36, Red Cell Distribution Width 14.2, Platelet Count 231, Mean Platelet Volume 9.6, Sodium Level 138, Potassium Level 3.6, Chloride Level 102, Carbon Dioxide Level 24, Anion Gap 12, Blood Urea Nitrogen 20H, Creatinine 1.12, Estimat Glomerular Filtration Rate > 60, BUN/Creatinine Ratio 18, Glucose Level 109H, Calcium Level 9.1, Total Bilirubin 0.7, Aspartate Amino Transf (AST/ SGOT) 24, Alanine Aminotransferase (ALT/SGPT) 31, Alkaline Phosphatase 56, Total Protein 7.6, Albumin 4.1 Assessment/Plan/Dx 1. Abrasion L knee, due to fall. 2. History of R knee injury. Plan: The L knee abrasion needs no specific dressing or therapy. Will see again as needed. TIFFANY GROSSMAN MD Nov 30, 2017 18:27
[2017-11-30] MEDS: POLYETHYLENE GLYCOL 17 GM (MIRALAX) PACK PO SCH (19:42)
[2017-12-01] MEDS: HYDROcodone/APAP 7.5 MG/325 MG (LORTAB, LORCET PLUS) TABLET PO PRN ×2 (01:02→23:38)
[2017-12-01 05:09] VITALS: BP 119/78
[2017-12-01] MEDS: PYRIDOXINE (VITAMIN B-6) 50 MG TABLET PO SCH (05:55)
[2017-12-01] MEDS: PANTOPRAZOLE 20 MG TABLET (PROTONIX) PO SCH (06:00)
--- NOTE | 2017-12-01 08:26 | Occupational Ther Daily Note ---
OT Current Status-Daily Note Subjective Pt alert, sitting in recliner. Pt agrees to therapy. No c/o pain. Mental Status/Objective Patient Orientation: Person, Place, Time, Situation Functional [place] Measure 0=Not Assessed/NA 4=Minimal Assistance 1=Total Assistance 5=Supervision or Setup 2=Maximal Assistance 6=Modified [place] 3=Moderate Assistance 7=Complete [place] ADL-Treatment Pt declined shower. Pt agrees to sponge bath. Pt requires mod A to initiate sit to stand then CGA with transfers and ambulation. Sitting at sink pt able to complete own grooming. SBA while pt stands to cleanse obie area/buttocks. Pt able to don/doff upper body clothing by self. Using AE for lower body dressing, pt requires min A. Min A for toilet transfer using grabbars and FWW. Assist to manipulate clothing over hips, CGA. After therapy, pt sitting in recliner with call light/phone in reach. All needs met in room. Functional [place] Measure 0=Not Assessed/NA 4=Minimal Assistance 1=Total Assistance 5=Supervision or Setup 2=Maximal Assistance 6=Modified [place] 3=Moderate Assistance 7=Complete IndependenceIRFPAI Quality Coding Scale 6 Independent with activity with or without an assistive device 5 Patient requires set up or clean up by helper. Patient completes activity by themselves 4 Supervision or touching assist (CGA). [place] provide cues , steadying assist 3 The helper provides less than half the effort to complete the activity 2 The helper provides more than half the effort to complete the activity 1 Dependent. The helper does all the effort to complete an activity 7 Patient refused to complete or attempt activity 9 The patient did not perform the activity before the current illness or injury 88 Not attempted due to Medical conditions or safety concerns Grooming (FIM): 6 Oral Hygiene (QC): 6 Upper Body (FIM): 5 Upper Body Dressing (QC): 5 Lower Body Dressing (FIM): 4 Lower Body Dressing (QC): 4 On/Off Footwear (QC): 3 Toileting (FIM): 4 Toileting Hygiene (QC): 4 Toilet/Commode Transfer (FIM): 4 Toilet Transfer (QC): 3 OT Short Term Goals Short Term Goals Time Frame: Dec 06, 2017 Eating(FIM): 5 Grooming(FIM): 5 Bathing(FIM): 5 Upper Body Dressing(FIM): 5 Lower Body Dressing(FIM): 4 Toileting(FIM): 5 Transfers (B,C,W/C) (FIM): 5 Toilet/Commode Transfer(FIM): 5 Additional Short Term Goals: 1-Demonstrate ADL Tasks, 2-Verbalize Understanding , 3-ImproveStrength/Tariq 1=Demonstrate adherence to instructed precautions during ADL tasks. 2=Patient will verbalize/demonstrate understanding of assistive devices/ modifications for ADL. 3=Patient will improve strength/tolerance for activity to enable patient to perform ADL's. OT Asset Protection Specialist Goals Asset Protection Specialist Goals Time Frame: Dec 20, 2017 Eating (FIM): 6 Eating (QC): 6 Groomin Oral Hygiene (QC): 6 Bathing(FIM): 5 Shower/Bathe Self (QC): 5 Upper Body Dressing(FIM): 6 Upper Body Dressing (QC): 6 Lower Body Dressing(FIM): 6 Lower Body Dressing (QC): 6 On/Off Footwear (QC): 6 Toileting(FIM): 6 Toileting Hygiene (QC): 6 Transfers (B,C,W/C) (FIM): 6 Toilet/Commode Transfer(FIM): 6 Toilet/Commode Transfer (QC): 6 Shower Transfer(FIM): 5 Additional Goals: 1-Demonstrate ADL Tasks, 2-Verbalize Understanding, 3- ImproveStrength/Tariq 1=Demonstrate adherence to instructed precautions during ADL tasks. 2=Patient will verbalize/demonstrate understanding of assistive devices/ modifications for ADL. 3=Patient will improve strength/tolerance for activity to enable patient to perform ADL's. OT Education/Plan Discharge Recommendations Plan/Recommendations: Continue POC Treatment Plan/Plan of Care Patient would benefit from OT for education, treatment and training to promote independence in ADL's, mobility, safety and/or upper extremity function for ADL' s. Plan of Care: ADL Retraining, Caregiver Training, Concurrent Therapy, Functional Mobility, Group Exercise/Act as Ind, UE Funct Exercise/Act, UE Neuromus Re-Ed/Coord, W/C Management Training Treatment Duration: Dec 20, 2017 Frequency: At least 5 of 7 days/Wk (IRF) Estimated Hrs Per Day: 1.5 hours per day Agreement: Yes Rehab Potential: Good Time/GCodes Start Time: 06:50 Stop Time: 08:20 Total Time Billed (hr/min): 90 Billed Treatment Time 1 visit-ADL 6 (90 min) JOHNNIE BRAY Dec 01, 2017 08:26
[2017-12-01] MEDS: HYDROCHLOROTHIAZIDE 12.5 MG (HCTZ) CAP PO SCH (08:50)
[2017-12-01] MEDS: DULoxetine 30 MG (CYMBALTA) CAP PO SCH (08:50)
[2017-12-01] MEDS: SENNA W/DOCUSATE (SENOKOT S) TABLET PO SCH ×2 (08:50→20:25)
[2017-12-01] MEDS: POLYETHYLENE GLYCOL 17 GM (MIRALAX) PACK PO SCH ×2 (08:50→20:25)
[2017-12-01] MEDS: VALSARTAN 160 MG (DIOVAN) TABLET PO SCH (08:50)
--- NOTE | 2017-12-01 09:05 | PM & R (SOAP) Progress Note ---
Subjective This was a face to face visit with the patient. Date Seen by Provider: Dec 01, 2017 Time Seen by Provider: 07:40 Subjective/Events-last exam Patient was seen in his room this AM Patient would like to see ortho re rt knee pain he indicates that he never saw one re this issue in the past-Will se who is available for consult on Sunday12-03-17 and obtain MRI of Rt Knee.patient Min to mod assist for transfers Review of Systems Musculoskeletal: leg pain Objective Physician Exam Last Set of Vital Signs Vital Signs Date Time Temp Pulse Resp B/P (MAP) Pulse Ox O2 Delivery O2 Flow Rate FiO2 12/01/17 05:09 98.3 74 20 119/78 (92) 92 Room Air Capillary Refill : I&O Intake and Output 12/01/17 00:00 Intake Total 1350 ml Output Total 150 ml Balance 1200 ml Intake Oral 1350 ml Output Urine Total 150 ml # Voids 4 # Bowel Movements 4 General: Alert, Oriented X3, Cooperative, No Acute Distress HEENT: Atraumatic, PERRLA, EOMI, Mucous Memb Moist/[place] Neck: Supple, No JVD Lungs: Clear to Auscultation Heart: Regular Rate Abdomen: Normal Bowel Sounds, Soft, No Tenderness Extremities: Other (swelling rt knee) Skin: Other (Abrasion rt knee) Neuro: Other (Good - strength RUE Good on left Rt Knee in brace Cognitively intact) Results Lab Data Laboratory Tests 11/30/17 07:55: White Blood Count 9.3, Red Blood Count 4.67, Hemoglobin 15.1, Hematocrit 43, Mean Corpuscular Volume 91, Mean Corpuscular Hemoglobin 32, Mean Corpuscular Hemoglobin Concent 36, Red Cell Distribution Width 14.2, Platelet Count 231, Mean Platelet Volume 9.6, Sodium Level 138, Potassium Level 3.6, Chloride Level 102, Carbon Dioxide Level 24, Anion Gap 12, Blood Urea Nitrogen 20H, Creatinine 1.12, Estimat Glomerular Filtration Rate > 60, BUN/Creatinine Ratio 18, Glucose Level 109H, Calcium Level 9.1, Total Bilirubin 0.7, Aspartate Amino Transf (AST/ SGOT) 24, Alanine Aminotransferase (ALT/SGPT) 31, Alkaline Phosphatase 56, Total Protein 7.6, Albumin 4.1 Assessment/Plan Assessment and Plan RT Knee pain due to sprain/strain R/O meniscal or ligament injury Rt Upper limb weakness due to CTS and impingement syndrome Constipation treated Hemorroidal pain Symptomatic relief treatment Reactive anxiety HTN controlled GERD on med Plan Continue PT/OT/pain management/Knee Brace Check MRI of knee Ortho consult See orders. Team Conference 7--18 (1) Knee strain Status: Acute Co-Morbidities that are continuing to impact the rehab process: (include details ) KARISSA GIORDANO MD Dec 01, 2017 09:05
--- NOTE | 2017-12-01 11:44 | Physical Therapy Daily Note ---
PT Daily Note-Current Subjective Pt. agrees to Rx. Explains his medical history and home situation. States his LE weakness has been coming on a long time, not sure of the reason. Also states he has a history of "back problems" as well as carpal tunnel syndrome RUE. States during rx today he definitely feels stronger already. States he uses a lift recline chair at home. Pain Numeric Pain Scale: 3 Location: Right Location Body Site: Knee Pain Description: Ache Mental Status Patient Orientation: Normal For Age Attachments: Other-See Comments (knee immoblizer used part of the time) Transfers Functional [place] Measure 0=Not Assessed/NA 4=Minimal Assistance 1=Total Assistance 5=Supervision or Setup 2=Maximal Assistance 6=Modified [place] 3=Moderate Assistance 7=Complete IndependenceIRFPAI Quality Coding Scale 6 Independent with activity with or without an assistive device 5 Patient requires set up or clean up by helper. Patient completes activity by themselves 4 Supervision or touching assist (CGA). [place] provide cues , steadying assist 3 The helper provides less than half the effort to complete the activity 2 The helper provides more than half the effort to complete the activity 1 Dependent. The helper does all the effort to complete an activity 7 Patient refused to complete or attempt activity 9 The patient did not perform the activity before the current illness or injury 88 Not attempted due to Medical conditions or safety concerns Transfers (B, C, W/C) (FIM): 5 Scootin Rollin Supine to/from Sit: 5 (toward left out of bed, like home situation) Sit to/from Stand: 5 (from taller surface, ) Gait Training Does the Patient Walk?: Yes Gait (FIM): 4 Distance (FIM): 3=150 ft (150, 75x2) Gait Level of Assist: 4 Gait Persons Needed: 1 Gait Assistive Device: FWW w/c to follow in case of sudden weakness Wheelchair Training Does the Pt Use a Wheelchair?: Yes Wheelchair (FIM): 5 Wheelchair Distance: 3=150 ft Wheelchair Level of Assist: 5 Type of Wheelchair: Manual needed instruction in efficient turning and brake location Exercises Supine Ex: Bridging, Ankle pumps, Quad Set, Rolling, Glut sets, Heel Slides, Short Arc Quads, Scooting, Straight leg raise, Hip abd/add Supine Reps: 10 (x2) Seated Therapy Exercises: Ankle pumps, Sit to stand, Long arc quads Seated Reps: 12 (x2) Standing: Sit to Stand, Side steps, Step-ups Standing Reps: 10 Assessment Current Status: Good Progress diminished sensation RLE foot and calf and toes. PT Short Term Goals Short Term Goals Time Frame: Dec 06, 2017 Transfers (B,C,W/C) (FIM): 5 Gait (FIM): 2 Gait Distance Comment: 50' Gait Level of Assist: 4 Gait Assistive Device: FWW Wheelchair Distance: 50' PT Hearing Consultant Goals Longterm Goals PT Hearing Consultant Goals Time Frame: Dec 20, 2017 Transfers (B,C,W/C) (FIM): 5 Sit to Lying (QC): 4 Lying-Sitting on Side/Bed(QC): 4 Sit to Stand (QC): 4 Rollin Roll Left to Right (QC): 4 Chair/Dol-vd-Atbot Xfer(QC): 4 Car Transfer (QC): 4 Gait (FIM): 5 Distance: 150' Walk 10 feet (QC): 4 Walk 10ft-Uneven Surface(QC): 4 Walk 50ft with 2 Turns (QC): 4 Walk 150 ft (QC): 4 Gait Level of Assist: 5 Gait Assistive Device: FWW Stairs (FIM): 2 # of Steps: 4 1 Step (curb) (QC): 4 4 Steps (QC): 4 Stairs Level Of Assist: 4 PT Plan Treatment/Plan Treatment Plan: Continue Plan of Care Treatment Plan: Bed Mobility, Education, Functional Activity Tariq, Functional Strength, Group Therapy, Gait, Safety, Therapeutic Exercise, Transfers Treatment Duration: Dec 20, 2017 Frequency: At least 5 of 7 days/Wk (IRF) Estimated Hrs Per Day: 1.5 hours per day Patient and/or Family Agrees t: Yes Safety Risks/Education Patient Education: Gait Training, Transfer Techniques, Correct Positioning, W/ C Management, Disease Process, Safety Issues Teaching Recipient: Patient Teaching Methods: Demonstration, Discussion Response to Teaching: Verbalize Understanding, Return Demonstration, Reinforcement Needed Time/GCodes Time In: 945 Time Out: 1130 Total Billed Treatment Time: 105 Total Billed Treatment 1,EX30m,FA45m,GT30m G Codes Necessary: ADRIANNE Key [place] Dec 01, 2017 11:43
[2017-12-01] MEDS: NEO/POLY/BAC (NEOSPORIN) OINT 15 GM TUBE TOP SCH ×2 (13:24→20:37)
[2017-12-01 18:00] VITALS: BP 134/74
[2017-12-02 06:00] VITALS: BP 120/72
[2017-12-02] MEDS: PYRIDOXINE (VITAMIN B-6) 50 MG TABLET PO SCH (06:12)
[2017-12-02] MEDS: PANTOPRAZOLE 20 MG TABLET (PROTONIX) PO SCH (06:30)
[2017-12-02] MEDS: VALSARTAN 160 MG (DIOVAN) TABLET PO SCH (08:33)
[2017-12-02] MEDS: HYDROCHLOROTHIAZIDE 12.5 MG (HCTZ) CAP PO SCH (08:33)
[2017-12-02] MEDS: DULoxetine 30 MG (CYMBALTA) CAP PO SCH (08:33)
[2017-12-02] MEDS: POLYETHYLENE GLYCOL 17 GM (MIRALAX) PACK PO SCH ×2 (08:38→19:51)
[2017-12-02] MEDS: SENNA W/DOCUSATE (SENOKOT S) TABLET PO SCH ×2 (08:38→20:00)
[2017-12-02] MEDS: NEO/POLY/BAC (NEOSPORIN) OINT 15 GM TUBE TOP SCH ×2 (08:39→20:00)
[2017-12-02] MEDS: HYDROcodone/APAP 7.5 MG/325 MG (LORTAB, LORCET PLUS) TABLET PO PRN ×2 (09:34→20:03)
[2017-12-02 18:00] VITALS: BP 116/70
[2017-12-03] MEDS: HYDROcodone/APAP 7.5 MG/325 MG (LORTAB, LORCET PLUS) TABLET PO PRN ×4 (01:11→20:38)
[2017-12-03 05:24] VITALS: BP 128/70
[2017-12-03] MEDS: PYRIDOXINE (VITAMIN B-6) 50 MG TABLET PO SCH (05:36)
[2017-12-03] MEDS: PANTOPRAZOLE 20 MG TABLET (PROTONIX) PO SCH (06:01)
--- NOTE | 2017-12-03 07:56 | Progress Note (SOAP) ---
Subjective Time Seen by Provider: 07:55 Subjective/Events-last exam Patient feeling better and doing better. Patient not using the brace. Patient doing more things for himself Objective Exam Vital Signs Date Time Temp Pulse Resp B/P (MAP) Pulse Ox O2 Delivery O2 Flow Rate FiO2 12/03/17 05:24 97.3 67 20 128/70 (89) 93 Room Air 12/02/17 21:00 Room Air 12/02/17 18:00 98.2 69 18 116/70 (85) 96 Room Air 12/02/17 09:00 Room Air I & O 12/03/17 07:00 Intake Total 1150 ml Balance 1150 ml Capillary Refill : General Appearance: No Apparent Distress, WD/WN HEENT: Normal ENT Inspection Neck: Full Range of Motion Respiratory: Lungs Clear, No Accessory Muscle Use, No Respiratory Distress Cardiovascular: Regular Rate, Rhythm, No Murmur Gastrointestinal: non tender, soft Assessment/Plan Assessment/Plan Assess & Plan/Chief Complaint Debility. Right carpal tunnel. Hypertension. GERD. Right knee pain. Lives alone. Unable to take care of himself. . 11/30/17. Debility. Right carpal tunnel. Right knee pain. Hypertension. GERD. Patient lives alone. Patient unable to take care of himself at home. . 12/03/17. Debility. Right carpal tunnel. Right knee pain. Hypertension. GERD. Patient not wearing his brace. Patient doing more Clinical Quality Measures DVT/VTE Risk/Contraindication: Risk Factor Score Per Nursin RFS Level Per Nursing on Admit: 4+=Very High JENNIFER SANTOYO DO Dec 03, 2017 07:55
[2017-12-03] MEDS: VALSARTAN 160 MG (DIOVAN) TABLET PO SCH (08:28)
[2017-12-03] MEDS: SENNA W/DOCUSATE (SENOKOT S) TABLET PO SCH ×2 (08:28→20:38)
[2017-12-03] MEDS: HYDROCHLOROTHIAZIDE 12.5 MG (HCTZ) CAP PO SCH (08:28)
[2017-12-03] MEDS: POLYETHYLENE GLYCOL 17 GM (MIRALAX) PACK PO SCH ×2 (08:28→20:38)
[2017-12-03] MEDS: NEO/POLY/BAC (NEOSPORIN) OINT 15 GM TUBE TOP SCH ×2 (08:30→20:39)
--- NOTE | 2017-12-03 09:35 | Occupational Ther Daily Note ---
OT Current Status-Daily Note Subjective Pt alert, lying in bed. Pt agrees to therapy. No c/o pain at this time. Nrsg and pt stated that have not used leg brace all weekend. Mental Status/Objective Patient Orientation: Person, Place, Time, Situation Functional [place] Measure 0=Not Assessed/NA 4=Minimal Assistance 1=Total Assistance 5=Supervision or Setup 2=Maximal Assistance 6=Modified [place] 3=Moderate Assistance 7=Complete [place] ADL-Treatment Functional [place] Measure 0=Not Assessed/NA 4=Minimal Assistance 1=Total Assistance 5=Supervision or Setup 2=Maximal Assistance 6=Modified [place] 3=Moderate Assistance 7=Complete IndependenceIRFPAI Quality Coding Scale 6 Independent with activity with or without an assistive device 5 Patient requires set up or clean up by helper. Patient completes activity by themselves 4 Supervision or touching assist (CGA). [place] provide cues , steadying assist 3 The helper provides less than half the effort to complete the activity 2 The helper provides more than half the effort to complete the activity 1 Dependent. The helper does all the effort to complete an activity 7 Patient refused to complete or attempt activity 9 The patient did not perform the activity before the current illness or injury 88 Not attempted due to Medical conditions or safety concerns Grooming (FIM): 6 (Sitting at sink, pt able to complete own grooming.) Oral Hygiene (QC): 6 Bathing (FIM): 5 (SBA in standing while cleansing obie area/buttocks. Using bariatric BSC, grabbars, hand held shower and long handle sponge pt able to complete all other bathing by self.) Bathing Location: L Arm, R Arm, L Upper Leg, R Upper Leg, L Lower Leg ( including foot), R Lower Leg (including foot), Chest, Abdomen, Buttocks, Perineal Area Shower/Bathe Self (QC): 4 Upper Body (FIM): 5 (After set up, pt able to complete upper body dressing by self.) Upper Body Dressing (QC): 4 Lower Body Dressing (FIM): 4 (Assist to use sock aide to don socks and assist to don L shoe. Pt able to don/doff pants by self no AE. Dressing stick to doff socks by self.) Lower Body Dressing (QC): 3 On/Off Footwear (QC): 3 Toileting (FIM): 6 (Using FWW and grabbar, pt able to complete toileting by self.) Toileting Hygiene (QC): 6 Toilet/Commode Transfer (FIM): 6 (Using grabbars and FWW pt able to transfer by self.) Toilet Transfer (QC): 6 Shower Transfer(FIM): 5 (Supervision with transfer using BSC, grabbars and FWW. ) After therapy, pt sitting in recliner with call light/phone in reach. All needs met in room. OT Short Term Goals Short Term Goals Time Frame: Dec 06, 2017 Eating(FIM): 5 Grooming(FIM): 5 Bathing(FIM): 5 Upper Body Dressing(FIM): 5 Lower Body Dressing(FIM): 4 Toileting(FIM): 5 Transfers (B,C,W/C) (FIM): 5 Toilet/Commode Transfer(FIM): 5 Additional Short Term Goals: 1-Demonstrate ADL Tasks, 2-Verbalize Understanding , 3-ImproveStrength/Tariq 1=Demonstrate adherence to instructed precautions during ADL tasks. 2=Patient will verbalize/demonstrate understanding of assistive devices/ modifications for ADL. 3=Patient will improve strength/tolerance for activity to enable patient to perform ADL's. OT Business Development Consultant Goals Correction Goals Time Frame: Dec 20, 2017 Eating (FIM): 6 Eating (QC): 6 Groomin Oral Hygiene (QC): 6 Bathing(FIM): 5 Shower/Bathe Self (QC): 5 Upper Body Dressing(FIM): 6 Upper Body Dressing (QC): 6 Lower Body Dressing(FIM): 6 Lower Body Dressing (QC): 6 On/Off Footwear (QC): 6 Toileting(FIM): 6 Toileting Hygiene (QC): 6 Transfers (B,C,W/C) (FIM): 6 Toilet/Commode Transfer(FIM): 6 Toilet/Commode Transfer (QC): 6 Shower Transfer(FIM): 5 Additional Goals: 1-Demonstrate ADL Tasks, 2-Verbalize Understanding, 3- ImproveStrength/Tariq 1=Demonstrate adherence to instructed precautions during ADL tasks. 2=Patient will verbalize/demonstrate understanding of assistive devices/ modifications for ADL. 3=Patient will improve strength/tolerance for activity to enable patient to perform ADL's. OT Education/Plan Discharge Recommendations Plan/Recommendations: Continue POC Treatment Plan/Plan of Care Patient would benefit from OT for education, treatment and training to promote independence in ADL's, mobility, safety and/or upper extremity function for ADL' s. Plan of Care: ADL Retraining, Caregiver Training, Concurrent Therapy, Functional Mobility, Group Exercise/Act as Ind, UE Funct Exercise/Act, UE Neuromus Re-Ed/Coord, W/C Management Training Treatment Duration: Dec 20, 2017 Frequency: At least 5 of 7 days/Wk (IRF) Estimated Hrs Per Day: 1.5 hours per day Agreement: Yes Rehab Potential: Good Time/GCodes Start Time: 06:50 Stop Time: 08:00 Total Time Billed (hr/min): 70 Billed Treatment Time 1 visit-ADL 5 (70 min) JOHNNIE BRAY Dec 03, 2017 09:35
[2017-12-03] MEDS: DULoxetine 30 MG (CYMBALTA) CAP PO SCH (09:47)
--- NOTE | 2017-12-03 10:01 | Physical Therapy Daily Note ---
PT Daily Note-Current Subjective Pt. agrees to Rx. States " I need you to find out what is causing all this weakness and pain." Pt.states he has pain radiating down from right hip into leg and foot which limits his strength and activity and balance. C/o pain in back and right LE at 5/10. Requests FWW to be made taller. Pain Numeric Pain Scale: 5-Moderate Pain Location: Right Location Body Site: Hip Pain Description: Radiating Mental Status Patient Orientation: Normal For Age Transfers Functional [place] Measure 0=Not Assessed/NA 4=Minimal Assistance 1=Total Assistance 5=Supervision or Setup 2=Maximal Assistance 6=Modified [place] 3=Moderate Assistance 7=Complete IndependenceIRFPAI Quality Coding Scale 6 Independent with activity with or without an assistive device 5 Patient requires set up or clean up by helper. Patient completes activity by themselves 4 Supervision or touching assist (CGA). [place] provide cues , steadying assist 3 The helper provides less than half the effort to complete the activity 2 The helper provides more than half the effort to complete the activity 1 Dependent. The helper does all the effort to complete an activity 7 Patient refused to complete or attempt activity 9 The patient did not perform the activity before the current illness or injury 88 Not attempted due to Medical conditions or safety concerns Transfers (B, C, W/C) (FIM): 5 Scootin Rollin Supine to/from Sit: 5 Sit to/from Stand: 5 Bed to/from Chair: 5 with all surfaces made taller with cushions pt is able to TRF with rails etc and instruction Gait Training Does the Patient Walk?: Yes Gait (FIM): 4 Distance (FIM): 3=150 ft (x2) Gait Level of Assist: 4 Gait Persons Needed: 1 Gait Assistive Device: FWW w/c to follow as pt. has had in past sudden weakness and LE weakness Wheelchair Training Does the Pt Use a Wheelchair?: Yes Wheelchair (FIM): 5 Wheelchair Distance: 3=150 ft Wheelchair Level of Assist: 5 Type of Wheelchair: Manual Exercises Supine Ex: Bridging, Ankle pumps, Quad Set, Rolling, Glut sets, Heel Slides, Short Arc Quads, Scooting, Straight leg raise, Hip abd/add Supine Reps: 10 (x2) Seated Therapy Exercises: Ankle pumps, Sit to stand, Long arc quads Seated Reps: 10 Assessment Current Status: Good Progress pain and weakness limits participation, suspicions that pt has radiculopathy etc PT Short Term Goals Short Term Goals Time Frame: Dec 06, 2017 Transfers (B,C,W/C) (FIM): 5 Gait (FIM): 2 Gait Distance Comment: 50' Gait Level of Assist: 4 Gait Assistive Device: FWW Wheelchair Distance: 50' PT Training Manager Goals Snf Goals PT Snf Goals Time Frame: Dec 20, 2017 Transfers (B,C,W/C) (FIM): 5 Sit to Lying (QC): 4 Lying-Sitting on Side/Bed(QC): 4 Sit to Stand (QC): 4 Rollin Roll Left to Right (QC): 4 Chair/Naz-tl-Bpttd Xfer(QC): 4 Car Transfer (QC): 4 Gait (FIM): 5 Distance: 150' Walk 10 feet (QC): 4 Walk 10ft-Uneven Surface(QC): 4 Walk 50ft with 2 Turns (QC): 4 Walk 150 ft (QC): 4 Gait Level of Assist: 5 Gait Assistive Device: FWW Stairs (FIM): 2 # of Steps: 4 1 Step (curb) (QC): 4 4 Steps (QC): 4 Stairs Level Of Assist: 4 PT Plan Treatment/Plan Treatment Plan: Continue Plan of Care Treatment Plan: Bed Mobility, Education, Functional Activity Tariq, Functional Strength, Group Therapy, Gait, Safety, Therapeutic Exercise, Transfers Treatment Duration: Dec 20, 2017 Frequency: At least 5 of 7 days/Wk (IRF) Estimated Hrs Per Day: 1.5 hours per day Patient and/or Family Agrees t: Yes Safety Risks/Education Patient Education: Gait Training, Transfer Techniques, Correct Positioning, Disease Process, Safety Issues Teaching Recipient: Patient Teaching Methods: Demonstration, Discussion Response to Teaching: Verbalize Understanding, Return Demonstration, Reinforcement Needed Time/GCodes Time In: 900 Time Out: 1000 Total Billed Treatment Time: 60 Total Billed Treatment 1,GT20,FA15,EX15m,WC10 G Codes Necessary: ADRIANNE Key REHABILITATION MEDICINE PHYSICIAN Dec 03, 2017 10:01
--- NOTE | 2017-12-03 14:24 | Therapy Group Daily Note ---
Therapy Daily Group Note Patient Education Topic Other List Below (importance of memory and strategies to enhance) Exercises LE Seated Exercise, UE Exercise Other/Notes Pt. participated in group PT OT session this date. Pt. came and went via w/c and instruction. Pt. was social, introduced himself and shared in all memory discussion and activities. Pts as a group established 5 things to remember by the end of the session . Pt. helped establish this and did remember parts of it well. Pt. also participated in visual memory game by matching images. Pt. participated in U&L extremity seated exercises. pt back to room to bed with assist. Berg at hand Start Time: 13:00 Stop Time: 14:14 Total Billed Treatment Time: 70 Total Billed Treatment 1,GRP ADRIANNE VERAS DISPATCH SUPERVISOR Dec 03, 2017 14:24
--- NOTE | 2017-12-03 16:38 | Diagnostic Imaging Report ---
EXAMINATION: Magnetic resonance imaging of the right knee without intravenous contrast. DATE: December 03, 2017. COMPARISON: None. INDICATION: 77-year-old male, fall. Right knee pain and swelling. TECHNIQUE: Multiplanar, multisequence non contrast enhanced MR imaging was accomplished. FINDINGS: There are limitations of the exam relating to low mfboct-fr-ljcrl ratio. MENISCI: There is signal in the posterior horn of the medial meniscus, not definitely meeting strict MRI criteria for tear. There is no parameniscal cyst. There is no medial meniscal extrusion. There is significant limitation for evaluation of the lateral meniscus. There is a probable longitudinal horizontal type tear involving at least the body of the lateral meniscus. There is no parameniscal cyst. LIGAMENTS AND TENDONS: The anterior and posterior cruciate ligaments are intact. The medial collateral ligament is intact. The iliotibial band, mid third lateral capsular ligament, fibular collateral ligament, biceps femoris tendon and conjoined tendon are intact. There is mild degenerative type enthesopathy at the distal quadriceps tendon insertion. The distal quadriceps tendon is otherwise intact. There are well-corticated ossifications near the distal patellar tendon attachment, which may relate to sequelae of prior [place]-Schlatter disease or remote prior injury. The patellar tendon is otherwise intact. JOINT: There is partial-thickness fissuring of the cartilage of the median patellar ridge, best seen on axial T2 fat-saturation sequence image 20. There is limited direct evaluation of the medial and lateral compartment cartilage without obvious abnormality. There is no large knee joint effusion. There is no prominent synovitis or intra-articular body. BONE: There is unremarkable bone marrow signal. Specifically, negative for fracture, osteomyelitis, osteonecrosis, or marrow replacing process. 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 IMPRESSION: 1. Significant limitations of the exam relating to low tqivga-eb-smftd ratio. 2. Probable longitudinal horizontal tear involving at least the body of the lateral meniscus. No definite medial meniscal tear on limited evaluation. No parameniscal cyst or medial meniscal extrusion. 3. Intact anterior and posterior cruciate ligaments. 4. No acute fracture, bone contusion, or evidence of osteonecrosis. 5. 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 Dictated by: Dictated on workstation # [id number]
[2017-12-03 18:12] VITALS: BP 108/66
--- NOTE | 2017-12-03 19:55 | PM & R (SOAP) Progress Note ---
Subjective This was a face to face visit with the patient. Date Seen by Provider: Dec 03, 2017 Time Seen by Provider: 19:40 Subjective/Events-last exam Patient was seen in his room this evening Patient SBA for transfers .MRI RT Knee reveals possible meniscal tear will see if ortho can see see orders.Patient relates pain to 2 years ago when he caught his leg getting off a riding mower.Patient declining to use Brace at this time Review of Systems Musculoskeletal: leg pain Objective Physician Exam Last Set of Vital Signs Vital Signs Date Time Temp Pulse Resp B/P (MAP) Pulse Ox O2 Delivery O2 Flow Rate FiO2 12/03/17 18:12 97.8 75 18 108/66 (80) 100 Room Air Capillary Refill : I&O Intake and Output 12/03/17 00:00 Intake Total 1120 ml Output Total 350 ml Balance 770 ml Intake Oral 1120 ml Output Urine Total 350 ml # Voids 5 General: Alert, Oriented X3, Cooperative, No Acute Distress HEENT: Atraumatic, PERRLA, EOMI, Mucous Memb Moist/[place] Neck: Supple, No JVD Lungs: Clear to Auscultation Heart: Regular Rate Abdomen: Normal Bowel Sounds, Soft, No Tenderness Extremities: Other (swelling rt knee) Skin: Other (Abrasion rt knee) Neuro: Other (Good - strength RUE Good on left Rt Knee in brace Cognitively intact) Assessment/Plan Assessment and Plan Rt Knee pain with possible meniscus tear-will se if ortho here can see-see orders Rt 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
[2017-12-04] MEDS: HYDROcodone/APAP 7.5 MG/325 MG (LORTAB, LORCET PLUS) TABLET PO PRN ×2 (01:13→21:20)
[2017-12-04 05:30] VITALS: BP 145/74
[2017-12-04] MEDS: PANTOPRAZOLE 20 MG TABLET (PROTONIX) PO SCH (06:30)
[2017-12-04] MEDS: PYRIDOXINE (VITAMIN B-6) 50 MG TABLET PO SCH (06:30)
--- NOTE | 2017-12-04 07:28 | PM & R (SOAP) Progress Note ---
Subjective This was a face to face visit with the patient. Date Seen by Provider: Dec 04, 2017 Time Seen by Provider: 07:00 Subjective/Events-last exam Patient was seen in his room this AM.Patient reports pain with AROM of rt knee MRI noted will see if an ortho can review.Patient Min to mod assist for traaaansfers Declines to use Knee brace RN reports that ortho did see him at [facility] but only CT Knee done not rervealing soft tissue injury. Objective Physician Exam Last Set of Vital Signs Vital Signs Date Time Temp Pulse Resp B/P (MAP) Pulse Ox O2 Delivery O2 Flow Rate FiO2 12/04/17 05:30 97.7 61 18 145/74 (97) 94 Room Air Capillary Refill : I&O Intake and Output 12/04/17 00:00 Intake Total 1270 ml Balance 1270 ml Intake Oral 1270 ml # Voids 8 # Bowel Movements 1 General: Alert, Oriented X3, Cooperative, No Acute Distress HEENT: Atraumatic, PERRLA, EOMI, Mucous Memb Moist/[place] Neck: Supple, No JVD Lungs: Clear to Auscultation Heart: Regular Rate Abdomen: Normal Bowel Sounds, Soft, No Tenderness Extremities: Other (swelling rt knee) Skin: Other (Abrasion rt knee) Neuro: Other (Good - strength RUE Good on left Rt Knee in brace Cognitively intact) Assessment/Plan Assessment and Plan RT Knee pain due to possible meniscal tear Rt upper limb weakness due to CTS and impingement syndrome Constipation treated Hemorrhoidal pain symptomatic relief treatment Reative anxiety HTN controlled Gerd on med Plan Continue PT/OT See if ortho can see Team Conference later today -see report for full functional update and POC and ELOS (1) Knee strain Status: Acute Co-Morbidities that are continuing to impact the rehab process: (include details ) KARISSA GIORDANO MD Dec 04, 2017 07:28
--- NOTE | 2017-12-04 07:52 | Occupational Ther Daily Note ---
OT Current Status-Daily Note Subjective Pt alert, sitting in recliner. Pt had spilled coffee this am and had changed clothing. Pt agrees to therapy. No c/o pain at this time. Mental Status/Objective Patient Orientation: Person, Place, Time, Situation Functional [place] Measure 0=Not Assessed/NA 4=Minimal Assistance 1=Total Assistance 5=Supervision or Setup 2=Maximal Assistance 6=Modified [place] 3=Moderate Assistance 7=Complete [place] ADL-Treatment Pt able to don/doff shoes by self. L shoe without equipment, R shoe with AE. Pt able to go from sit to stand with SBA. Pt c/o dizziness, increased time completing tasks. Functional [place] Measure 0=Not Assessed/NA 4=Minimal Assistance 1=Total Assistance 5=Supervision or Setup 2=Maximal Assistance 6=Modified [place] 3=Moderate Assistance 7=Complete IndependenceIRFPAI Quality Coding Scale 6 Independent with activity with or without an assistive device 5 Patient requires set up or clean up by helper. Patient completes activity by themselves 4 Supervision or touching assist (CGA). [place] provide cues , steadying assist 3 The helper provides less than half the effort to complete the activity 2 The helper provides more than half the effort to complete the activity 1 Dependent. The helper does all the effort to complete an activity 7 Patient refused to complete or attempt activity 9 The patient did not perform the activity before the current illness or injury 88 Not attempted due to Medical conditions or safety concerns Other Treatment Pt ambulated to therapy gym with 1 rest break. Pt then ambulated to therapy gym to complete arm bike. Arm bike completed 15 min duration at 20 cox resistance to increase strength and activity tolerance, 2 recovery breaks taken. Pt then ambulated back to room using FWW with CGA due to fatigue and dizziness. After therapy, pt sitting in recliner with call light/phone in reach. All needs met in room. OT Short Term Goals Short Term Goals Time Frame: Dec 06, 2017 Eating(FIM): 5 Grooming(FIM): 5 Bathing(FIM): 5 Upper Body Dressing(FIM): 5 Lower Body Dressing(FIM): 4 Toileting(FIM): 5 Transfers (B,C,W/C) (FIM): 5 Toilet/Commode Transfer(FIM): 5 Additional Short Term Goals: 1-Demonstrate ADL Tasks, 2-Verbalize Understanding , 3-ImproveStrength/Tariq 1=Demonstrate adherence to instructed precautions during ADL tasks. 2=Patient will verbalize/demonstrate understanding of assistive devices/ modifications for ADL. 3=Patient will improve strength/tolerance for activity to enable patient to perform ADL's. OT [facility] Goals Sports Internship Goals Time Frame: Dec 20, 2017 Eating (FIM): 6 Eating (QC): 6 Groomin Oral Hygiene (QC): 6 Bathing(FIM): 5 Shower/Bathe Self (QC): 5 Upper Body Dressing(FIM): 6 Upper Body Dressing (QC): 6 Lower Body Dressing(FIM): 6 Lower Body Dressing (QC): 6 On/Off Footwear (QC): 6 Toileting(FIM): 6 Toileting Hygiene (QC): 6 Transfers (B,C,W/C) (FIM): 6 Toilet/Commode Transfer(FIM): 6 Toilet/Commode Transfer (QC): 6 Shower Transfer(FIM): 5 Additional Goals: 1-Demonstrate ADL Tasks, 2-Verbalize Understanding, 3- ImproveStrength/Tariq 1=Demonstrate adherence to instructed precautions during ADL tasks. 2=Patient will verbalize/demonstrate understanding of assistive devices/ modifications for ADL. 3=Patient will improve strength/tolerance for activity to enable patient to perform ADL's. OT Education/Plan Discharge Recommendations Plan/Recommendations: Continue POC Treatment Plan/Plan of Care Patient would benefit from OT for education, treatment and training to promote independence in ADL's, mobility, safety and/or upper extremity function for ADL' s. Plan of Care: ADL Retraining, Caregiver Training, Concurrent Therapy, Functional Mobility, Group Exercise/Act as Ind, UE Funct Exercise/Act, UE Neuromus Re-Ed/Coord, W/C Management Training Treatment Duration: Dec 20, 2017 Frequency: At least 5 of 7 days/Wk (IRF) Estimated Hrs Per Day: 1.5 hours per day Agreement: Yes Rehab Potential: Good Time/GCodes Start Time: 07:00 Stop Time: 08:00 Total Time Billed (hr/min): 60 Billed Treatment Time 1 visit-ADL 1 (20 min) FA 1 (20 min) EX 1 (20 min) JOHNNIE BRAY Dec 04, 2017 07:52
[2017-12-04] MEDS: POLYETHYLENE GLYCOL 17 GM (MIRALAX) PACK PO SCH ×2 (08:15→21:00)
[2017-12-04] MEDS: HYDROCHLOROTHIAZIDE 12.5 MG (HCTZ) CAP PO SCH (08:15)
[2017-12-04] MEDS: VALSARTAN 160 MG (DIOVAN) TABLET PO SCH (08:15)
[2017-12-04] MEDS: SENNA W/DOCUSATE (SENOKOT S) TABLET PO SCH ×2 (08:15→21:10)
[2017-12-04] MEDS: DULoxetine 30 MG (CYMBALTA) CAP PO SCH (08:16)
[2017-12-04] MEDS: NEO/POLY/BAC (NEOSPORIN) OINT 15 GM TUBE TOP SCH ×2 (08:17→21:14)
--- NOTE | 2017-12-04 08:17 | Progress Note (SOAP) ---
Subjective Time Seen by Provider: 08:15 Subjective/Events-last exam Patient feels he is doing better. Patient had physical therapy already this morning. Patient dropped hot coffee on himself.. Patient getting around good with a walker Objective Exam Vital Signs Date Time Temp Pulse Resp B/P (MAP) Pulse Ox O2 Delivery O2 Flow Rate FiO2 12/04/17 05:30 97.7 61 18 145/74 (97) 94 Room Air 12/03/17 18:12 97.8 75 18 108/66 (80) 100 Room Air 12/03/17 09:50 Room Air I & O 12/04/17 07:00 Intake Total 1420 ml Balance 1420 ml Capillary Refill : General Appearance: No Apparent Distress, WD/WN HEENT: Normal ENT Inspection Neck: Normal Inspection Respiratory: Lungs Clear, No Accessory Muscle Use, No Respiratory Distress Cardiovascular: Regular Rate, Rhythm, No Murmur Assessment/Plan Assessment/Plan Assess & Plan/Chief Complaint Debility. Right carpal tunnel. Hypertension. GERD. Right knee pain. Lives alone. Unable to take care of himself. . 11/30/17. Debility. Right carpal tunnel. Right knee pain. Hypertension. GERD. Patient lives alone. Patient unable to take care of himself at home. . 12/03/17. Debility. Right carpal tunnel. Right knee pain. Hypertension. GERD. Patient not wearing his brace. Patient doing more. . 12/04/17. Debility. Right knee pain. Right carpal tunnel. Hypertension. Patient getting around with walker. Patient feels he is improving Clinical Quality Measures DVT/VTE Risk/Contraindication: Risk Factor Score Per Nursin RFS Level Per Nursing on Admit: 4+=Very High JENNIFER SANTOYO DO Dec 04, 2017 08:17
--- NOTE | 2017-12-04 09:40 | Occupational Ther Daily Note ---
OT Current Status-Daily Note Subjective Pt in bathroom. Pt c/o dizziness and SOA. Pt stated that he had almost thrown up before RASHID came into room. Nrsg is aware of pt's complaints. Pt has only had coffee this morning, regular routine for pt. Pt states that he usually don' t eat before noon. RASHID gave pt saltines, pt stated that he was feeling better after eating them. Mental Status/Objective Patient Orientation: Person, Place, Time, Situation Functional [place] Measure 0=Not Assessed/NA 4=Minimal Assistance 1=Total Assistance 5=Supervision or Setup 2=Maximal Assistance 6=Modified [place] 3=Moderate Assistance 7=Complete [place] ADL-Treatment Functional [place] Measure 0=Not Assessed/NA 4=Minimal Assistance 1=Total Assistance 5=Supervision or Setup 2=Maximal Assistance 6=Modified [place] 3=Moderate Assistance 7=Complete IndependenceIRFPAI Quality Coding Scale 6 Independent with activity with or without an assistive device 5 Patient requires set up or clean up by helper. Patient completes activity by themselves 4 Supervision or touching assist (CGA). [place] provide cues , steadying assist 3 The helper provides less than half the effort to complete the activity 2 The helper provides more than half the effort to complete the activity 1 Dependent. The helper does all the effort to complete an activity 7 Patient refused to complete or attempt activity 9 The patient did not perform the activity before the current illness or injury 88 Not attempted due to Medical conditions or safety concerns Other Treatment Pt was able to transfer to toilet with supervision using grabbars and FWW. Pt was able to complete toileting hygiene though inefficiently. Manipulated clothing by self using grabbar and FWW. Assist needed to apply ointment after BM. Pt ambulated to sink and wash hands. Declined completing any grooming due to dizziness and nausea. Pt ambulated back to recliner. Pt able to open packages of saltine crackers by self. After therapy, pt sitting in recliner with call light/phone in reach. All needs met in room. OT Short Term Goals Short Term Goals Time Frame: Dec 06, 2017 Eating(FIM): 5 Grooming(FIM): 5 Bathing(FIM): 5 Upper Body Dressing(FIM): 5 Lower Body Dressing(FIM): 4 Toileting(FIM): 5 Transfers (B,C,W/C) (FIM): 5 Toilet/Commode Transfer(FIM): 5 Additional Short Term Goals: 1-Demonstrate ADL Tasks, 2-Verbalize Understanding , 3-ImproveStrength/Tariq 1=Demonstrate adherence to instructed precautions during ADL tasks. 2=Patient will verbalize/demonstrate understanding of assistive devices/ modifications for ADL. 3=Patient will improve strength/tolerance for activity to enable patient to perform ADL's. OT Pilot Submersible Goals Pilot Submersible Goals Time Frame: Dec 20, 2017 Eating (FIM): 6 Eating (QC): 6 Groomin Oral Hygiene (QC): 6 Bathing(FIM): 5 Shower/Bathe Self (QC): 5 Upper Body Dressing(FIM): 6 Upper Body Dressing (QC): 6 Lower Body Dressing(FIM): 6 Lower Body Dressing (QC): 6 On/Off Footwear (QC): 6 Toileting(FIM): 6 Toileting Hygiene (QC): 6 Transfers (B,C,W/C) (FIM): 6 Toilet/Commode Transfer(FIM): 6 Toilet/Commode Transfer (QC): 6 Shower Transfer(FIM): 5 Additional Goals: 1-Demonstrate ADL Tasks, 2-Verbalize Understanding, 3- ImproveStrength/Tariq 1=Demonstrate adherence to instructed precautions during ADL tasks. 2=Patient will verbalize/demonstrate understanding of assistive devices/ modifications for ADL. 3=Patient will improve strength/tolerance for activity to enable patient to perform ADL's. OT Education/Plan Discharge Recommendations Plan/Recommendations: Continue POC Treatment Plan/Plan of Care Patient would benefit from OT for education, treatment and training to promote independence in ADL's, mobility, safety and/or upper extremity function for ADL' s. Plan of Care: ADL Retraining, Caregiver Training, Concurrent Therapy, Functional Mobility, Group Exercise/Act as Ind, UE Funct Exercise/Act, UE Neuromus Re-Ed/Coord, W/C Management Training Treatment Duration: Dec 20, 2017 Frequency: At least 5 of 7 days/Wk (IRF) Estimated Hrs Per Day: 1.5 hours per day Agreement: Yes Rehab Potential: Good Time/GCodes Start Time: 09:30 Stop Time: 10:00 Total Time Billed (hr/min): 30 Billed Treatment Time 1 visit-ADL 2 (30 min) JOHNNIE BRAY Dec 04, 2017 09:40
--- NOTE | 2017-12-04 11:00 | Physical Therapy Daily Note ---
PT Daily Note-Current Subjective Pt sitting in recliner upon arrival. Pt agrees to PT but reports "just wish I knew what was wrong with me". Pain Numeric Pain Scale: 8 Location: Right Location Body Site: Knee Pain Description: Ache, Burning, Radiating Mental Status Patient Orientation: Person, Place, Situation Transfers Functional [place] Measure 0=Not Assessed/NA 4=Minimal Assistance 1=Total Assistance 5=Supervision or Setup 2=Maximal Assistance 6=Modified [place] 3=Moderate Assistance 7=Complete IndependenceIRFPAI Quality Coding Scale 6 Independent with activity with or without an assistive device 5 Patient requires set up or clean up by helper. Patient completes activity by themselves 4 Supervision or touching assist (CGA). [place] provide cues , steadying assist 3 The helper provides less than half the effort to complete the activity 2 The helper provides more than half the effort to complete the activity 1 Dependent. The helper does all the effort to complete an activity 7 Patient refused to complete or attempt activity 9 The patient did not perform the activity before the current illness or injury 88 Not attempted due to Medical conditions or safety concerns Scootin Sit to/from Stand: 4 Sit to Stand (QC): 4 Weight Bearing Right Lower Extremity: Right Full Weight Bearing Left Lower Extremity: Left Full Weight Bearing Exercises Supine Ex: Ankle pumps, Quad Set, Heel Slides, Hip abd/add Supine Reps: 15 Seated Therapy Exercises: Ankle pumps, Long arc quads, Hip flexion Seated Reps: 15 Treatments Pt gives BEAM WORKER medical history and concern for not knowing cause of pain/weakness that has plagued pt for last couple of years. BEAM WORKER & pt discussed medical history but to not avail. Pt completes Supine Ex in recliner then transfers to standing using FWW at A. Pt transfers to EOB then Supine & completes Supine Ex in bed. Pt then gets nauseated and BEAM WORKER tries to reposition. This doesn't assist pt and pt wants to try to use the restroom. Pt attempts and still feeling nauseated wants to sit for a little while, Nurse notified. Assessment Current Status: Good Progress Pt preoccupied early in tx with past medical history and not knowing cause of pain/weakness. Pt has arthritis and PT will work on improvement with strength. BEAM WORKER continue to check with Nurse about nauseousness of pt. PT Short Term Goals Short Term Goals Time Frame: Dec 06, 2017 Transfers (B,C,W/C) (FIM): 5 Gait (FIM): 2 Gait Distance Comment: 50' Gait Level of Assist: 4 Gait Assistive Device: FWW Wheelchair Distance: 50' PT Shelter Goals Sixth Grade Teacher Goals PT Sixth Grade Teacher Goals Time Frame: Dec 20, 2017 Transfers (B,C,W/C) (FIM): 5 Sit to Lying (QC): 4 Lying-Sitting on Side/Bed(QC): 4 Sit to Stand (QC): 4 Rollin Roll Left to Right (QC): 4 Chair/Kre-sb-[place] Xfer(QC): 4 Car Transfer (QC): 4 Gait (FIM): 5 Distance: 150' Walk 10 feet (QC): 4 Walk 10ft-Uneven Surface(QC): 4 Walk 50ft with 2 Turns (QC): 4 Walk 150 ft (QC): 4 Gait Level of Assist: 5 Gait Assistive Device: FWW Stairs (FIM): 2 # of Steps: 4 1 Step (curb) (QC): 4 4 Steps (QC): 4 Stairs Level Of Assist: 4 PT Plan Problem List Problem List: Activity Tolerance, Functional Strength, Safety, Balance, Gait, Transfer Treatment/Plan Treatment Plan: Continue Plan of Care Treatment Plan: Bed Mobility, Education, Functional Activity Tariq, Functional Strength, Group Therapy, Gait, Safety, Therapeutic Exercise, Transfers Treatment Duration: Dec 20, 2017 Frequency: At least 5 of 7 days/Wk (IRF) Estimated Hrs Per Day: 1.5 hours per day Patient and/or Family Agrees t: Yes Safety Risks/Education Patient Education: Gait Training, Transfer Techniques, Correct Positioning, Safety Issues Teaching Recipient: Patient Teaching Methods: Discussion Response to Teaching: Verbalize Understanding Time/GCodes Time In: 800 Time Out: 900 Total Billed Treatment Time: 60 Total Billed Treatment 1, EX x2 (30m) & FA x2 (30m) G Codes Necessary: ASHLEE Nails PTA Dec 04, 2017 11:00
--- NOTE | 2017-12-04 14:02 | Physical Therapy Daily Note ---
PT Daily Note-Current Subjective Pt sitting in recliner upon arrival. Pt agrees to PT. Pt reports needing Preparation H to rectum & asks PIG CONVEYOR OPERATOR to apply. Pain Numeric Pain Scale: 8 Location: Right Location Body Site: Hip Pain Description: Ache Mental Status Patient Orientation: Person, Place Transfers Functional [place] Measure 0=Not Assessed/NA 4=Minimal Assistance 1=Total Assistance 5=Supervision or Setup 2=Maximal Assistance 6=Modified [place] 3=Moderate Assistance 7=Complete IndependenceIRFPAI Quality Coding Scale 6 Independent with activity with or without an assistive device 5 Patient requires set up or clean up by helper. Patient completes activity by themselves 4 Supervision or touching assist (CGA). [place] provide cues , steadying assist 3 The helper provides less than half the effort to complete the activity 2 The helper provides more than half the effort to complete the activity 1 Dependent. The helper does all the effort to complete an activity 7 Patient refused to complete or attempt activity 9 The patient did not perform the activity before the current illness or injury 88 Not attempted due to Medical conditions or safety concerns Scootin Sit to/from Stand: 5 Sit to Stand (QC): 5 Weight Bearing Right Lower Extremity: Right Full Weight Bearing Left Lower Extremity: Left Full Weight Bearing Gait Training Does the Patient Walk?: Yes Distance (FIM): 1=up to 49 ft Distance: 30' Walk 10 feet (QC): 5 Gait Level of Assist: 5 Gait Persons Needed: 1 Gait Assistive Device: FWW Pt has slow brandon. Exercises Seated Therapy Exercises: Ankle pumps, Long arc quads, Hip flexion, Kicking activity, Hip abd/add Seated Reps: 15 Treatments Pt transfers from recliner to standing using FWW. PIG CONVEYOR OPERATOR assists pt with applying Preparation H to rectum as pt asked. Pt returns to recliner to rest then completes Seated Ex in recliner. Pt resting in recliner visiting with with family that has just arrived. Pt has all needs met including call light next to pt. Assessment Current Status: Good Progress Pt preoccupied with how often he is using restroom. PIG CONVEYOR OPERATOR continues to redirect pt to task. PT Short Term Goals Short Term Goals Time Frame: Dec 06, 2017 Transfers (B,C,W/C) (FIM): 5 Gait (FIM): 2 Gait Distance Comment: 50' Gait Level of Assist: 4 Gait Assistive Device: FWW Wheelchair Distance: 50' PT Diabetologist Goals Diabetologist Goals PT Care Home Goals Time Frame: Dec 20, 2017 Transfers (B,C,W/C) (FIM): 5 Sit to Lying (QC): 4 Lying-Sitting on Side/Bed(QC): 4 Sit to Stand (QC): 4 Rollin Roll Left to Right (QC): 4 Chair/Fie-ag-Pbsvy Xfer(QC): 4 Car Transfer (QC): 4 Gait (FIM): 5 Distance: 150' Walk 10 feet (QC): 4 Walk 10ft-Uneven Surface(QC): 4 Walk 50ft with 2 Turns (QC): 4 Walk 150 ft (QC): 4 Gait Level of Assist: 5 Gait Assistive Device: FWW Stairs (FIM): 2 # of Steps: 4 1 Step (curb) (QC): 4 4 Steps (QC): 4 Stairs Level Of Assist: 4 PT Plan Problem List Problem List: Activity Tolerance, Functional Strength, Safety, Balance, Gait, Transfer Treatment/Plan Treatment Plan: Continue Plan of Care Treatment Plan: Bed Mobility, Education, Functional Activity Tariq, Functional Strength, Group Therapy, Gait, Safety, Therapeutic Exercise, Transfers Treatment Duration: Dec 20, 2017 Frequency: At least 5 of 7 days/Wk (IRF) Estimated Hrs Per Day: 1.5 hours per day Patient and/or Family Agrees t: Yes Safety Risks/Education Patient Education: Gait Training, Transfer Techniques, Correct Positioning, Safety Issues Teaching Recipient: Patient Teaching Methods: Discussion Response to Teaching: Verbalize Understanding Time/GCodes Time In: 1300 Time Out: 1330 Total Billed Treatment Time: 30 Total Billed Treatment 1, EX (15m) & FA (15m) G Codes Necessary: ASHLEE Nails PIG CONVEYOR OPERATOR Dec 04, 2017 14:02
[2017-12-04 17:57] VITALS: BP 114/70
[2017-12-05] MEDS: HYDROcodone/APAP 7.5 MG/325 MG (LORTAB, LORCET PLUS) TABLET PO PRN ×3 (01:18→20:49)
[2017-12-05 05:58] VITALS: BP 114/68
[2017-12-05] MEDS: PANTOPRAZOLE 20 MG TABLET (PROTONIX) PO SCH (06:51)
[2017-12-05] MEDS: PYRIDOXINE (VITAMIN B-6) 50 MG TABLET PO SCH (06:52)
--- NOTE | 2017-12-05 07:16 | Occupational Ther Daily Note ---
OT Current Status-Daily Note Subjective Pt alert, lying in bed. Pt agrees to therapy. No c/o pain at this time. Mental Status/Objective Patient Orientation: Person, Place, Time, Situation Functional [place] Measure 0=Not Assessed/NA 4=Minimal Assistance 1=Total Assistance 5=Supervision or Setup 2=Maximal Assistance 6=Modified [place] 3=Moderate Assistance 7=Complete [place] ADL-Treatment Pt takes increased time to complete tasks. Functional [place] Measure 0=Not Assessed/NA 4=Minimal Assistance 1=Total Assistance 5=Supervision or Setup 2=Maximal Assistance 6=Modified [place] 3=Moderate Assistance 7=Complete IndependenceIRFPAI Quality Coding Scale 6 Independent with activity with or without an assistive device 5 Patient requires set up or clean up by helper. Patient completes activity by themselves 4 Supervision or touching assist (CGA). [place] provide cues , steadying assist 3 The helper provides less than half the effort to complete the activity 2 The helper provides more than half the effort to complete the activity 1 Dependent. The helper does all the effort to complete an activity 7 Patient refused to complete or attempt activity 9 The patient did not perform the activity before the current illness or injury 88 Not attempted due to Medical conditions or safety concerns Grooming (FIM): 7 (Standing holding onto sink, pt is able to complete grooming. ) Oral Hygiene (QC): 6 Bathing (FIM): 6 (Using BSC, hand held shower, long handle sponge and grabbar pt is able to complete own shower.) Bathing Location: L Arm, R Arm, L Upper Leg, R Upper Leg, L Lower Leg ( including foot), R Lower Leg (including foot), Chest, Abdomen, Buttocks, Perineal Area Shower/Bathe Self (QC): 6 Upper Body (FIM): 5 (After set up, pt able to complete by self.) Upper Body Dressing (QC): 5 Lower Body Dressing (FIM): 5 (After set up, pt able to complete by self.) Lower Body Dressing (QC): 5 On/Off Footwear (QC): 5 (Able to don/doff sock/shoes by self. ) Toileting (FIM): 6 (Pt able to complete using grabbar and FWW.) Toileting Hygiene (QC): 6 Toilet/Commode Transfer (FIM): 6 (Using FWW and grabbar, pt able to complete by self.) Toilet Transfer (QC): 6 Shower Transfer(FIM): 6 (Using grabbar, FWW and BSC pt able to complete by self.) Pt has a tendency to leave FWW behind and ambulate by holding onto nance and counters, no LOB noted during this. Pt forgets what new items are used for then returns to own routine. Pt starts sitting in the shower then stands "because you can't get clean enough sitting down". Pt does hold onto grabbars in the shower when standing to stabilize self. After therapy, pt sitting in recliner with call light/phone in reach. All needs met in room. OT Short Term Goals Short Term Goals Time Frame: Dec 06, 2017 Eating(FIM): 5 Grooming(FIM): 5 Bathing(FIM): 5 Upper Body Dressing(FIM): 5 Lower Body Dressing(FIM): 4 Toileting(FIM): 5 Transfers (B,C,W/C) (FIM): 5 Toilet/Commode Transfer(FIM): 5 Additional Short Term Goals: 1-Demonstrate ADL Tasks, 2-Verbalize Understanding , 3-ImproveStrength/Tariq 1=Demonstrate adherence to instructed precautions during ADL tasks. 2=Patient will verbalize/demonstrate understanding of assistive devices/ modifications for ADL. 3=Patient will improve strength/tolerance for activity to enable patient to perform ADL's. OT Professional Employer Consultant Goals Professional Employer Consultant Goals Time Frame: Dec 20, 2017 Eating (FIM): 6 Eating (QC): 6 Groomin Oral Hygiene (QC): 6 Bathing(FIM): 5 Shower/Bathe Self (QC): 5 Upper Body Dressing(FIM): 6 Upper Body Dressing (QC): 6 Lower Body Dressing(FIM): 6 Lower Body Dressing (QC): 6 On/Off Footwear (QC): 6 Toileting(FIM): 6 Toileting Hygiene (QC): 6 Transfers (B,C,W/C) (FIM): 6 Toilet/Commode Transfer(FIM): 6 Toilet/Commode Transfer (QC): 6 Shower Transfer(FIM): 5 Additional Goals: 1-Demonstrate ADL Tasks, 2-Verbalize Understanding, 3- ImproveStrength/Tariq 1=Demonstrate adherence to instructed precautions during ADL tasks. 2=Patient will verbalize/demonstrate understanding of assistive devices/ modifications for ADL. 3=Patient will improve strength/tolerance for activity to enable patient to perform ADL's. OT Education/Plan Discharge Recommendations Plan/Recommendations: Continue POC Treatment Plan/Plan of Care Patient would benefit from OT for education, treatment and training to promote independence in ADL's, mobility, safety and/or upper extremity function for ADL' s. Plan of Care: ADL Retraining, Caregiver Training, Concurrent Therapy, Functional Mobility, Group Exercise/Act as Ind, UE Funct Exercise/Act, UE Neuromus Re-Ed/Coord, W/C Management Training Treatment Duration: Dec 20, 2017 Frequency: At least 5 of 7 days/Wk (IRF) Estimated Hrs Per Day: 1.5 hours per day Agreement: Yes Rehab Potential: Good Time/GCodes Start Time: 07:00 Stop Time: 08:00 Total Time Billed (hr/min): 60 Billed Treatment Time 1 visit-ADL 4 (60 min) JOHNNIE BRAY Dec 05, 2017 07:16
--- NOTE | 2017-12-05 08:18 | PM & R (SOAP) Progress Note ---
Subjective This was a face to face visit with the patient. Date Seen by Provider: Dec 05, 2017 Time Seen by Provider: 07:45 Subjective/Events-last exam Patient was seen in his room this AM.Patient progressing well with therapies pain decreasing and knee stability improving.Unable to reach ortho yesterday- wasnt distribution tech but patient doing so well may be able to see Ortho on outpatient basis for f/u Team yesterday at conference concerned re Prox rt leg weakness requested imaging study to evaluate .CT L-spine ordered for tomorrow to further evaluate Objective Physician Exam Last Set of Vital Signs Vital Signs Date Time Temp Pulse Resp B/P (MAP) Pulse Ox O2 Delivery O2 Flow Rate FiO2 12/05/17 05:58 96.9 78 18 114/68 (83) 94 Room Air Capillary Refill : I&O Intake and Output 12/05/17 00:00 Intake Total 1350 ml Balance 1350 ml Intake Oral 1350 ml # Voids 9 # Bowel Movements 2 General: Alert, Oriented X3, Cooperative, No Acute Distress HEENT: Atraumatic, PERRLA, EOMI, Mucous Memb Moist/[place] Neck: Supple, No JVD Lungs: Clear to Auscultation Heart: Regular Rate Abdomen: Normal Bowel Sounds, Soft, No Tenderness Extremities: Other (swelling rt knee) Skin: Other (Abrasion rt knee) Neuro: Other (Good - strength RUE Good on left Rt Knee in brace Cognitively intact) Assessment/Plan Assessment and Plan Rt Knee pain due to pssible meniscal tear improving Rt leg weaknees improving with therapies CT L spine to be obtained Rt upper limb weakness with CTS as per EMG DR Horner Constipation treated hemorrhoida; pain improved Reactive anxiety HTN controlled Gerd on meds Plan Continue PT/OT Team Conference held yesterday-see report for full functional update and POC and ELOS CT Lumbar spine tomorrow for above reasons (1) Knee strain Status: Acute Co-Morbidities that are continuing to impact the rehab process: (include details ) KARISSA GIORDANO MD Dec 05, 2017 08:18
[2017-12-05] MEDS: HYDROCHLOROTHIAZIDE 12.5 MG (HCTZ) CAP PO SCH (08:34)
[2017-12-05] MEDS: SENNA W/DOCUSATE (SENOKOT S) TABLET PO SCH ×2 (08:34→20:49)
[2017-12-05] MEDS: VALSARTAN 160 MG (DIOVAN) TABLET PO SCH (08:34)
[2017-12-05] MEDS: DULoxetine 30 MG (CYMBALTA) CAP PO SCH (08:37)
[2017-12-05] MEDS: NEO/POLY/BAC (NEOSPORIN) OINT 15 GM TUBE TOP SCH ×2 (08:42→20:48)
--- NOTE | 2017-12-05 09:58 | Physical Therapy Daily Note ---
PT Daily Note-Current Subjective Pt. agrees to Rx but states he is really determined to get his right knee "fixed " and is anxious to see a n orthopedic surgeon consult. Pain Numeric Pain Scale: 5-Moderate Pain Location: Right Location Body Site: Knee Pain Description: Stabbing Mental Status Patient Orientation: Person, Place, Time, Situation Transfers Functional [place] Measure 0=Not Assessed/NA 4=Minimal Assistance 1=Total Assistance 5=Supervision or Setup 2=Maximal Assistance 6=Modified [place] 3=Moderate Assistance 7=Complete IndependenceIRFPAI Quality Coding Scale 6 Independent with activity with or without an assistive device 5 Patient requires set up or clean up by helper. Patient completes activity by themselves 4 Supervision or touching assist (CGA). [place] provide cues , steadying assist 3 The helper provides less than half the effort to complete the activity 2 The helper provides more than half the effort to complete the activity 1 Dependent. The helper does all the effort to complete an activity 7 Patient refused to complete or attempt activity 9 The patient did not perform the activity before the current illness or injury 88 Not attempted due to Medical conditions or safety concerns Transfers (B, C, W/C) (FIM): 5 Scootin Rollin Supine to/from Sit: 5 Sit to/from Stand: 5 Bed to/from Chair: 5 Weight Bearing Right Lower Extremity: Right Full Weight Bearing Left Lower Extremity: Left Full Weight Bearing Gait Training Does the Patient Walk?: Yes Gait (FIM): 3 Distance (FIM): 3=150 ft Gait Level of Assist: 4 Gait Persons Needed: 1 Gait Assistive Device: FWW Wheelchair Training Does the Pt Use a Wheelchair?: Yes Wheelchair (FIM): 5 Wheelchair Distance: 3=150 ft (x1) Wheelchair Level of Assist: 5 (instructions) Type of Wheelchair: Manual Exercises Seated Therapy Exercises: Ankle pumps, Sit to stand, Long arc quads, Hip flexion Seated Reps: 12 NuStep Minutes: 12 NuStep Workload: 4 Assessment Current Status: Good Progress pt. states his knee pain limits his participation PT Short Term Goals Short Term Goals Time Frame: Dec 06, 2017 Transfers (B,C,W/C) (FIM): 5 Gait (FIM): 2 Gait Distance Comment: 50' Gait Level of Assist: 4 Gait Assistive Device: FWW Wheelchair Distance: 50' PT Educational Programming Director Goals Group Home Goals PT Educational Programming Director Goals Time Frame: Dec 20, 2017 Transfers (B,C,W/C) (FIM): 5 Sit to Lying (QC): 4 Lying-Sitting on Side/Bed(QC): 4 Sit to Stand (QC): 4 Rollin Roll Left to Right (QC): 4 Chair/Hfn-fv-[place] Xfer(QC): 4 Car Transfer (QC): 4 Gait (FIM): 5 Distance: 150' Walk 10 feet (QC): 4 Walk 10ft-Uneven Surface(QC): 4 Walk 50ft with 2 Turns (QC): 4 Walk 150 ft (QC): 4 Gait Level of Assist: 5 Gait Assistive Device: FWW Stairs (FIM): 2 # of Steps: 4 1 Step (curb) (QC): 4 4 Steps (QC): 4 Stairs Level Of Assist: 4 PT Plan Treatment/Plan Treatment Plan: Continue Plan of Care Treatment Plan: Bed Mobility, Education, Functional Activity Tariq, Functional Strength, Group Therapy, Gait, Safety, Therapeutic Exercise, Transfers Treatment Duration: Dec 20, 2017 Frequency: At least 5 of 7 days/Wk (IRF) Estimated Hrs Per Day: 1.5 hours per day Patient and/or Family Agrees t: Yes Safety Risks/Education Patient Education: Gait Training, Transfer Techniques, Correct Positioning, W/ C Management, Disease Process, Safety Issues Teaching Recipient: Patient Teaching Methods: Demonstration, Discussion Response to Teaching: Verbalize Understanding, Return Demonstration, Reinforcement Needed Time/GCodes Time In: 800 Time Out: 900 Total Billed Treatment Time: 60 Total Billed Treatment 1,EX30m,GT15m,FA15m G Codes Necessary: ADRIANNE Key LINE UP MACHINE OPERATOR Dec 05, 2017 09:57
[2017-12-05] MEDS: POLYETHYLENE GLYCOL 17 GM (MIRALAX) PACK PO SCH ×2 (11:53→20:49)
--- NOTE | 2017-12-05 13:27 | Therapy Group Daily Note ---
Therapy Daily Group Note Patient Education Topic Other List Below (handwashing) Exercises Fine Motor, UE Exercise Other/Notes Pt ambulated using FWW with SBA to OT/PT group at [facility]. Group consisted of introductions (name, place living, best December 05 fireworks), socialization, 05 of December facts, fine motor tasks, eating, handwashing education and UE tasks with dynamic sitting. Pt introduced self appropriately and actively listened to peers. Pt contributed to discussions on educational topics and conversations to peers. Pt completed fine motor and UE tasks appropriately without difficulty. After therapy, pt sitting in recliner with call light/phone in reach. All needs met in room. Start Time: 12:00 Stop Time: 13:10 Total Billed Treatment Time: 70 Total Billed Treatment 1-GRP JOHNNIE BRAY Dec 05, 2017 13:27
[2017-12-05 18:10] VITALS: BP 121/72
[2017-12-06] MEDS: HYDROcodone/APAP 7.5 MG/325 MG (LORTAB, LORCET PLUS) TABLET PO PRN ×4 (05:19→20:30)
[2017-12-06 06:00] VITALS: BP 132/83
[2017-12-06] MEDS: PANTOPRAZOLE 20 MG TABLET (PROTONIX) PO SCH (06:53)
[2017-12-06] MEDS: PYRIDOXINE (VITAMIN B-6) 50 MG TABLET PO SCH (07:00)
--- NOTE | 2017-12-06 07:17 | Occupational Ther Daily Note ---
OT Current Status-Daily Note Subjective Pt alert, lying in bed. Pt agrees to therapy. No c/o pain at this time. Mental Status/Objective Patient Orientation: Person, Place, Time, Situation Functional [place] Measure 0=Not Assessed/NA 4=Minimal Assistance 1=Total Assistance 5=Supervision or Setup 2=Maximal Assistance 6=Modified [place] 3=Moderate Assistance 7=Complete [place] ADL-Treatment Functional [place] Measure 0=Not Assessed/NA 4=Minimal Assistance 1=Total Assistance 5=Supervision or Setup 2=Maximal Assistance 6=Modified [place] 3=Moderate Assistance 7=Complete IndependenceIRFPAI Quality Coding Scale 6 Independent with activity with or without an assistive device 5 Patient requires set up or clean up by helper. Patient completes activity by themselves 4 Supervision or touching assist (CGA). [place] provide cues , steadying assist 3 The helper provides less than half the effort to complete the activity 2 The helper provides more than half the effort to complete the activity 1 Dependent. The helper does all the effort to complete an activity 7 Patient refused to complete or attempt activity 9 The patient did not perform the activity before the current illness or injury 88 Not attempted due to Medical conditions or safety concerns Grooming (FIM): 7 (Standing at sink using counter to stabilize self pt able to complete own grooming.) Oral Hygiene (QC): 6 Upper Body (FIM): 5 (After set up, pt able to complete own dressing.) Upper Body Dressing (QC): 5 Lower Body Dressing (FIM): 5 (After set up, pt able to complete own dressing.) Lower Body Dressing (QC): 6 On/Off Footwear (QC): 6 Toileting (FIM): 6 (Using FWW and grabbars, pt able to complete by self.) Toileting Hygiene (QC): 6 Toilet/Commode Transfer (FIM): 6 (Using FWW and grabbars pt able to complet by self.) Toilet Transfer (QC): 6 Other Treatment Pt completed UE exercises with hand weights (2#) to increase strength and activity tolerance for daily functional tasks. After therapy, pt sitting in recliner with call light/phone in reach. All needs met in room. OT Short Term Goals Short Term Goals Time Frame: Dec 06, 2017 Eating(FIM): 5 Grooming(FIM): 5 Bathing(FIM): 5 Upper Body Dressing(FIM): 5 Lower Body Dressing(FIM): 4 Toileting(FIM): 5 Transfers (B,C,W/C) (FIM): 5 Toilet/Commode Transfer(FIM): 5 Additional Short Term Goals: 1-Demonstrate ADL Tasks, 2-Verbalize Understanding , 3-ImproveStrength/Tariq 1=Demonstrate adherence to instructed precautions during ADL tasks. 2=Patient will verbalize/demonstrate understanding of assistive devices/ modifications for ADL. 3=Patient will improve strength/tolerance for activity to enable patient to perform ADL's. OT Snf Goals Cable Strander Goals Time Frame: Dec 20, 2017 Eating (FIM): 6 Eating (QC): 6 Groomin Oral Hygiene (QC): 6 Bathing(FIM): 5 Shower/Bathe Self (QC): 5 Upper Body Dressing(FIM): 6 Upper Body Dressing (QC): 6 Lower Body Dressing(FIM): 6 Lower Body Dressing (QC): 6 On/Off Footwear (QC): 6 Toileting(FIM): 6 Toileting Hygiene (QC): 6 Transfers (B,C,W/C) (FIM): 6 Toilet/Commode Transfer(FIM): 6 Toilet/Commode Transfer (QC): 6 Shower Transfer(FIM): 5 Additional Goals: 1-Demonstrate ADL Tasks, 2-Verbalize Understanding, 3- ImproveStrength/Tariq 1=Demonstrate adherence to instructed precautions during ADL tasks. 2=Patient will verbalize/demonstrate understanding of assistive devices/ modifications for ADL. 3=Patient will improve strength/tolerance for activity to enable patient to perform ADL's. OT Education/Plan Discharge Recommendations Plan/Recommendations: Continue POC Treatment Plan/Plan of Care Patient would benefit from OT for education, treatment and training to promote independence in ADL's, mobility, safety and/or upper extremity function for ADL' s. Plan of Care: ADL Retraining, Caregiver Training, Concurrent Therapy, Functional Mobility, Group Exercise/Act as Ind, UE Funct Exercise/Act, UE Neuromus Re-Ed/Coord, W/C Management Training Treatment Duration: Dec 20, 2017 Frequency: At least 5 of 7 days/Wk (IRF) Estimated Hrs Per Day: 1.5 hours per day Agreement: Yes Rehab Potential: Good Time/GCodes Start Time: 07:00 Stop Time: 08:00 Total Time Billed (hr/min): 60 Billed Treatment Time 1 visit-ADL 3 (50 min) EX 1 (10 min) JOHNNIE BRAY Dec 06, 2017 07:17
[2017-12-06] MEDS: HYDROCHLOROTHIAZIDE 12.5 MG (HCTZ) CAP PO SCH (08:02)
[2017-12-06] MEDS: DULoxetine 30 MG (CYMBALTA) CAP PO SCH (08:03)
[2017-12-06] MEDS: VALSARTAN 160 MG (DIOVAN) TABLET PO SCH (08:03)
[2017-12-06] MEDS: POLYETHYLENE GLYCOL 17 GM (MIRALAX) PACK PO SCH ×2 (08:04→20:32)
[2017-12-06] MEDS: NEO/POLY/BAC (NEOSPORIN) OINT 15 GM TUBE TOP SCH ×2 (08:09→20:31)
[2017-12-06] MEDS: SENNA W/DOCUSATE (SENOKOT S) TABLET PO SCH ×2 (08:09→20:30)
--- NOTE | 2017-12-06 08:29 | Progress Note (SOAP) ---
Subjective Time Seen by Provider: 08:25 Subjective/Events-last exam Patient states she is able to get around with walker. Patient states that she uses crutch or cane will fall down. Patient to see Dr. Tay orthopedic today. To get x-rays from [facility] and reports Objective Exam Vital Signs Date Time Temp Pulse Resp B/P (MAP) Pulse Ox O2 Delivery O2 Flow Rate FiO2 12/06/17 06:00 97.4 78 18 132/83 (99) 93 Room Air 12/05/17 21:00 Room Air 12/05/17 18:10 97.1 82 18 121/72 (88) 96 Room Air 12/05/17 08:47 Room Air I & O 12/06/17 07:00 Intake Total 1305 ml Balance 1305 ml Capillary Refill : General Appearance: No Apparent Distress, WD/WN HEENT: Normal ENT Inspection Neck: Full Range of Motion, Normal Inspection Assessment/Plan Assessment/Plan Assess & Plan/Chief Complaint Debility. Right carpal tunnel. Hypertension. GERD. Right knee pain. Lives alone. Unable to take care of himself. . 11/30/17. Debility. Right carpal tunnel. Right knee pain. Hypertension. GERD. Patient lives alone. Patient unable to take care of himself at home. . 12/03/17. Debility. Right carpal tunnel. Right knee pain. Hypertension. GERD. Patient not wearing his brace. Patient doing more. . 12/04/17. Debility. Right knee pain. Right carpal tunnel. Hypertension. Patient getting around with walker. Patient feels he is improving. . 7 swears 5/taking. Debility. Right carpal tunnel. Hypertension. GERD. Right knee pain. Patient is evaluated by orthopedics Clinical Quality Measures DVT/VTE Risk/Contraindication: Risk Factor Score Per Nursin RFS Level Per Nursing on Admit: 4+=Very High JENNIFER SANTOYO DO Dec 06, 2017 08:29
--- NOTE | 2017-12-06 09:33 | Physical Therapy Daily Note ---
PT Daily Note-Current Subjective Pt sitting in recliner upon arrival. Pt agrees to PT although reports pain in B knees with Ex. Ask Nurse about pain med but not time yet. Pt can have after tx though. Pain Numeric Pain Scale: 8 Location: Right, Left Location Body Site: Knee Pain Description: Ache Mental Status Patient Orientation: Person, Place, Time, Situation Transfers Functional [place] Measure 0=Not Assessed/NA 4=Minimal Assistance 1=Total Assistance 5=Supervision or Setup 2=Maximal Assistance 6=Modified [place] 3=Moderate Assistance 7=Complete IndependenceIRFPAI Quality Coding Scale 6 Independent with activity with or without an assistive device 5 Patient requires set up or clean up by helper. Patient completes activity by themselves 4 Supervision or touching assist ([facility]). [place] provide cues , steadying assist 3 The helper provides less than half the effort to complete the activity 2 The helper provides more than half the effort to complete the activity 1 Dependent. The helper does all the effort to complete an activity 7 Patient refused to complete or attempt activity 9 The patient did not perform the activity before the current illness or injury 88 Not attempted due to Medical conditions or safety concerns [place] Sit to/from Stand: 5 Sit to Stand (QC): 5 Weight Bearing Right Lower Extremity: Right Full Weight Bearing Left Lower Extremity: Left Full Weight Bearing Gait Training Does the Patient Walk?: Yes Distance (FIM): 3=150 ft Distance: 150' Walk 10 feet (QC): 4 Walk 50 ft with 2 Turns(QC): 4 Walk 150 ft (QC): 4 Gait Level of Assist: 4 Gait Persons Needed: 1 Gait Assistive Device: FWW Pt walks with slight kyphotic posture but normal brandon. MEDICAL RECEPTIONIST ASSISTANT assists at [facility] due to previous unsteadiness & weakness in B knees although today pt ambulated more independently. Wheelchair Training Does the Pt Use a Wheelchair?: No Exercises Seated Therapy Exercises: Ankle pumps, Long arc quads, Hip flexion, Kicking activity Seated Reps: 15 NuStep Minutes: 13 NuStep Workload: 4 Treatments Pt transfers from recliner to standing using FWW at [facility] Pt uses restroom before leaving room for tx. Pt ambulates in hallway using FWW at [facility] for balance. Pt uses NuStep for 13m at 4 before resting. Pt then completes Seated Ex in chair followed by short rest. pt ambulates back to room to use restroom again. Pt transfers to recliner to rest at end of tx with all needs met, including table in front of pt for breakfast & coffee given, call light & phone next to pt. Assessment Current Status: Good Progress Pt needs encouragement at times due to self limiting due to pain and discomfort. Pt's rated pain doesn't seem to match ability to complete tasks. PT Short Term Goals Short Term Goals Time Frame: Dec 06, 2017 Transfers (B,C,W/C) (FIM): 5 Gait (FIM): 2 Gait Distance Comment: 50' Gait Level of Assist: 4 Gait Assistive Device: FWW Wheelchair Distance: 50' PT Regional Owner Operator Truck Driver Goals Shelter Goals PT Regional Owner Operator Truck Driver Goals Time Frame: Dec 20, 2017 Transfers (B,C,W/C) (FIM): 5 Sit to Lying (QC): 4 Lying-Sitting on Side/Bed(QC): 4 Sit to Stand (QC): 4 Rollin Roll Left to Right (QC): 4 Chair/Dhz-yl-Kbftx Xfer(QC): 4 Car Transfer (QC): 4 Gait (FIM): 5 Distance: 150' Walk 10 feet (QC): 4 Walk 10ft-Uneven Surface(QC): 4 Walk 50ft with 2 Turns (QC): 4 Walk 150 ft (QC): 4 Gait Level of Assist: 5 Gait Assistive Device: FWW Stairs (FIM): 2 # of Steps: 4 1 Step (curb) (QC): 4 4 Steps (QC): 4 Stairs Level Of Assist: 4 PT Plan Problem List Problem List: Activity Tolerance, Functional Strength, Gait Treatment/Plan Treatment Plan: Continue Plan of Care Treatment Plan: Bed Mobility, Education, Functional Activity Tariq, Functional Strength, Group Therapy, Gait, Safety, Therapeutic Exercise, Transfers Treatment Duration: Dec 20, 2017 Frequency: At least 5 of 7 days/Wk (IRF) Estimated Hrs Per Day: 1.5 hours per day Patient and/or Family Agrees t: Yes Safety Risks/Education Patient Education: Gait Training, Correct Positioning, Safety Issues Teaching Recipient: Patient Teaching Methods: Discussion Response to Teaching: Verbalize Understanding Time/GCodes Time In: 815 Time Out: 915 Total Billed Treatment Time: 60 Total Billed Treatment 1, GT (15m), EX x2 (30m) & FA (15m) G Codes Necessary: No TREIBER,ASHLEE MEDICAL RECEPTIONIST ASSISTANT Dec 06, 2017 09:33
--- NOTE | 2017-12-06 11:46 | Occupational Ther Daily Note ---
OT Current Status-Daily Note Subjective Pt alert, sitting in recliner. Pt received food. Pt agrees to therapy. No c/ o pain at this time. Mental Status/Objective Patient Orientation: Person, Place, Time, Situation Functional [place] Measure 0=Not Assessed/NA 4=Minimal Assistance 1=Total Assistance 5=Supervision or Setup 2=Maximal Assistance 6=Modified [place] 3=Moderate Assistance 7=Complete [place] ADL-Treatment Pt able to open packages/containers by self and uses regular utensils to eat with. Functional [place] Measure 0=Not Assessed/NA 4=Minimal Assistance 1=Total Assistance 5=Supervision or Setup 2=Maximal Assistance 6=Modified [place] 3=Moderate Assistance 7=Complete IndependenceIRFPAI Quality Coding Scale 6 Independent with activity with or without an assistive device 5 Patient requires set up or clean up by helper. Patient completes activity by themselves 4 Supervision or touching assist (CGA). [place] provide cues , steadying assist 3 The helper provides less than half the effort to complete the activity 2 The helper provides more than half the effort to complete the activity 1 Dependent. The helper does all the effort to complete an activity 7 Patient refused to complete or attempt activity 9 The patient did not perform the activity before the current illness or injury 88 Not attempted due to Medical conditions or safety concerns Eating (FIM): 7 Eating (QC): 6 Other Treatment Pt ambulated to therapy gym using FWW with SBA. Completed arm bike 10 min at 20 cox resistance to increase strength and activity tolerance for daily functional tasks. Pt ambulated back to room with SBA using FWW. After therapy , pt sitting in recliner with call light/phone in reach. All needs met in room. OT Short Term Goals Short Term Goals Time Frame: Dec 06, 2017 Eating(FIM): 5 Grooming(FIM): 5 Bathing(FIM): 5 Upper Body Dressing(FIM): 5 Lower Body Dressing(FIM): 4 Toileting(FIM): 5 Transfers (B,C,W/C) (FIM): 5 Toilet/Commode Transfer(FIM): 5 Additional Short Term Goals: 1-Demonstrate ADL Tasks, 2-Verbalize Understanding , 3-ImproveStrength/Tariq 1=Demonstrate adherence to instructed precautions during ADL tasks. 2=Patient will verbalize/demonstrate understanding of assistive devices/ modifications for ADL. 3=Patient will improve strength/tolerance for activity to enable patient to perform ADL's. OT Stripper Soft Plastic Goals Residential Goals Time Frame: Dec 20, 2017 Eating (FIM): 6 Eating (QC): 6 Groomin Oral Hygiene (QC): 6 Bathing(FIM): 5 Shower/Bathe Self (QC): 5 Upper Body Dressing(FIM): 6 Upper Body Dressing (QC): 6 Lower Body Dressing(FIM): 6 Lower Body Dressing (QC): 6 On/Off Footwear (QC): 6 Toileting(FIM): 6 Toileting Hygiene (QC): 6 Transfers (B,C,W/C) (FIM): 6 Toilet/Commode Transfer(FIM): 6 Toilet/Commode Transfer (QC): 6 Shower Transfer(FIM): 5 Additional Goals: 1-Demonstrate ADL Tasks, 2-Verbalize Understanding, 3- ImproveStrength/Tariq 1=Demonstrate adherence to instructed precautions during ADL tasks. 2=Patient will verbalize/demonstrate understanding of assistive devices/ modifications for ADL. 3=Patient will improve strength/tolerance for activity to enable patient to perform ADL's. OT Education/Plan Discharge Recommendations Plan/Recommendations: Continue POC Treatment Plan/Plan of Care Patient would benefit from OT for education, treatment and training to promote independence in ADL's, mobility, safety and/or upper extremity function for ADL' s. Plan of Care: ADL Retraining, Caregiver Training, Concurrent Therapy, Functional Mobility, Group Exercise/Act as Ind, UE Funct Exercise/Act, UE Neuromus Re-Ed/Coord, W/C Management Training Treatment Duration: Dec 20, 2017 Frequency: At least 5 of 7 days/Wk (IRF) Estimated Hrs Per Day: 1.5 hours per day Agreement: Yes Rehab Potential: Good Time/GCodes Start Time: 10:00 Stop Time: 10:30 Total Time Billed (hr/min): 30 Billed Treatment Time 1 visit-ADL 1 (20 min) EX 1 (10 min) JOHNNIE BRAY Dec 06, 2017 11:46
--- NOTE | 2017-12-06 13:38 | Physical Therapy Daily Note ---
PT Daily Note-Current Subjective Pt sitting in recliner upon arrival. Pt agrees to Ex for PT. Pain Numeric Pain Scale: 5-Moderate Pain Mental Status Patient Orientation: Person, Place, Time, Situation Transfers Functional [place] Measure 0=Not Assessed/NA 4=Minimal Assistance 1=Total Assistance 5=Supervision or Setup 2=Maximal Assistance 6=Modified [place] 3=Moderate Assistance 7=Complete IndependenceIRFPAI Quality Coding Scale 6 Independent with activity with or without an assistive device 5 Patient requires set up or clean up by helper. Patient completes activity by themselves 4 Supervision or touching assist (CGA). [place] provide cues , steadying assist 3 The helper provides less than half the effort to complete the activity 2 The helper provides more than half the effort to complete the activity 1 Dependent. The helper does all the effort to complete an activity 7 Patient refused to complete or attempt activity 9 The patient did not perform the activity before the current illness or injury 88 Not attempted due to Medical conditions or safety concerns Weight Bearing Right Lower Extremity: Right Full Weight Bearing Left Lower Extremity: Left Full Weight Bearing Exercises Seated Therapy Exercises: Ankle pumps, Long arc quads, Hip flexion, Kicking activity Seated Reps: 15 Treatments Pt completes Seated Ex in recliner with a couple of rest breaks. Pt also receives pt educ. on increasing strengthening and plans regarding Dr Tay and taking MRI and how this will work with PT. Pt resting at end of tx with all needs met, including call light next to pt. Assessment Current Status: Good Progress Pt reports pain B knees but ROM has improved since previous tx. PT Short Term Goals Short Term Goals Time Frame: Dec 06, 2017 Transfers (B,C,W/C) (FIM): 5 Gait (FIM): 2 Gait Distance Comment: 50' Gait Level of Assist: 4 Gait Assistive Device: FWW Wheelchair Distance: 50' PT Alf Goals Alf Goals PT Alf Goals Time Frame: Dec 20, 2017 Transfers (B,C,W/C) (FIM): 5 Sit to Lying (QC): 4 Lying-Sitting on Side/Bed(QC): 4 Sit to Stand (QC): 4 Rollin Roll Left to Right (QC): 4 Chair/Kgb-fc-Iottn Xfer(QC): 4 Car Transfer (QC): 4 Gait (FIM): 5 Distance: 150' Walk 10 feet (QC): 4 Walk 10ft-Uneven Surface(QC): 4 Walk 50ft with 2 Turns (QC): 4 Walk 150 ft (QC): 4 Gait Level of Assist: 5 Gait Assistive Device: FWW Stairs (FIM): 2 # of Steps: 4 1 Step (curb) (QC): 4 4 Steps (QC): 4 Stairs Level Of Assist: 4 PT Plan Problem List Problem List: Activity Tolerance, Functional Strength, Gait Treatment/Plan Treatment Plan: Continue Plan of Care Treatment Plan: Bed Mobility, Education, Functional Activity Tariq, Functional Strength, Group Therapy, Gait, Safety, Therapeutic Exercise, Transfers Treatment Duration: Dec 20, 2017 Frequency: At least 5 of 7 days/Wk (IRF) Estimated Hrs Per Day: 1.5 hours per day Patient and/or Family Agrees t: Yes Safety Risks/Education Patient Education: Correct Positioning, Safety Issues Teaching Recipient: Patient Teaching Methods: Discussion Response to Teaching: Verbalize Understanding Time/GCodes Time In: 1145 Time Out: 1215 Total Billed Treatment Time: 30 Total Billed Treatment 1, EX (20m) & FA (10m) G Codes Necessary: ASHLEE Nails PTA Dec 06, 2017 13:38
[2017-12-06 17:43] VITALS: BP 112/73
--- NOTE | 2017-12-06 18:58 | PM & R (SOAP) Progress Note ---
Subjective This was a face to face visit with the patient. Date Seen by Provider: Dec 06, 2017 Time Seen by Provider: 17:20 Subjective/Events-last exam Patient was seen in his room this evening DR Tay on vacation and ortho disease education specialist declined consult.However patient doing better and now is SBA for transfers Discussed discharge options with patient as he doesnt wish to return home alone.CT Lspine not done as imaging report obtained from OSH Will f/u re report. Objective Physician Exam Last Set of Vital Signs Vital Signs Date Time Temp Pulse Resp B/P (MAP) Pulse Ox O2 Delivery O2 Flow Rate FiO2 12/06/17 17:43 96.8 70 16 112/73 (86) 95 Room Air Capillary Refill : I&O Intake and Output 12/06/17 00:00 Intake Total 1380 ml Balance 1380 ml Intake Oral 1380 ml # Voids 9 General: Alert, Oriented X3, Cooperative, No Acute Distress HEENT: Atraumatic, PERRLA, EOMI, Mucous Memb Moist/[place] Neck: Supple, No JVD Lungs: Clear to Auscultation Heart: Regular Rate Abdomen: Normal Bowel Sounds, Soft, No Tenderness Extremities: Other (swelling rt knee) Skin: Other (Abrasion rt knee) Neuro: Other (Good - strength RUE Good on left Rt Knee in brace Cognitively intact) Assessment/Plan Assessment and Plan RT Knee pain due to possible lat meniscus tear RT leg weaknee improving will reviewe outside films of L Spine obtained from cloud from OSH 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
[2017-12-07] MEDS: HYDROcodone/APAP 7.5 MG/325 MG (LORTAB, LORCET PLUS) TABLET PO PRN ×3 (00:56→21:33)
[2017-12-07] MEDS: PANTOPRAZOLE 20 MG TABLET (PROTONIX) PO SCH (06:01)
[2017-12-07] MEDS: PYRIDOXINE (VITAMIN B-6) 50 MG TABLET PO SCH (06:01)
[2017-12-07 06:47] VITALS: BP 122/72
--- NOTE | 2017-12-07 07:41 | Occupational Ther Daily Note ---
OT Current Status-Daily Note Subjective Pt alert, sitting in recliner. Pt agrees to therapy. Pt c/o pain in R knee. Mental Status/Objective Patient Orientation: Person, Place, Time, Situation Functional [place] Measure 0=Not Assessed/NA 4=Minimal Assistance 1=Total Assistance 5=Supervision or Setup 2=Maximal Assistance 6=Modified [place] 3=Moderate Assistance 7=Complete [place] ADL-Treatment Pt retrieved clothing using FWW with supervision. Transferred using grabbars and FWW to toilet and shower mod I. Pt standing in shower to complete bathing using hand held shower and grabbars, supervision for safety. Pt able to complete toileting with mod I. Pt dons/doffs upper body clothing by self. Uses honeycomb blanket maker to doff sock. Doffs and dons lower body clothing by self. Pt standing at sink to complete own grooming holding onto counter for support. After therapy, pt sitting in recliner with call light/phone in reach. All needs met in room. Functional [place] Measure 0=Not Assessed/NA 4=Minimal Assistance 1=Total Assistance 5=Supervision or Setup 2=Maximal Assistance 6=Modified [place] 3=Moderate Assistance 7=Complete IndependenceIRFPAI Quality Coding Scale 6 Independent with activity with or without an assistive device 5 Patient requires set up or clean up by helper. Patient completes activity by themselves 4 Supervision or touching assist (CGA). [place] provide cues , steadying assist 3 The helper provides less than half the effort to complete the activity 2 The helper provides more than half the effort to complete the activity 1 Dependent. The helper does all the effort to complete an activity 7 Patient refused to complete or attempt activity 9 The patient did not perform the activity before the current illness or injury 88 Not attempted due to Medical conditions or safety concerns Grooming (FIM): 7 Oral Hygiene (QC): 6 Bathing (FIM): 5 Shower/Bathe Self (QC): 4 Upper Body (FIM): 5 Upper Body Dressing (QC): 5 Lower Body Dressing (FIM): 5 Lower Body Dressing (QC): 5 On/Off Footwear (QC): 6 Toileting (FIM): 6 Toileting Hygiene (QC): 6 Transfers (B, C, W/C) (FIM): 6 Toilet/Commode Transfer (FIM): 6 Toilet Transfer (QC): 6 Shower Transfer(FIM): 6 OT Short Term Goals Short Term Goals Time Frame: Dec 06, 2017 Eating(FIM): 5 Grooming(FIM): 5 Bathing(FIM): 5 Upper Body Dressing(FIM): 5 Lower Body Dressing(FIM): 4 Toileting(FIM): 5 Transfers (B,C,W/C) (FIM): 5 Toilet/Commode Transfer(FIM): 5 Additional Short Term Goals: 1-Demonstrate ADL Tasks, 2-Verbalize Understanding , 3-ImproveStrength/Tariq 1=Demonstrate adherence to instructed precautions during ADL tasks. 2=Patient will verbalize/demonstrate understanding of assistive devices/ modifications for ADL. 3=Patient will improve strength/tolerance for activity to enable patient to perform ADL's. OT Senior Living Goals Senior Living Goals Time Frame: Dec 20, 2017 Eating (FIM): 6 Eating (QC): 6 Groomin Oral Hygiene (QC): 6 Bathing(FIM): 5 Shower/Bathe Self (QC): 5 Upper Body Dressing(FIM): 6 Upper Body Dressing (QC): 6 Lower Body Dressing(FIM): 6 Lower Body Dressing (QC): 6 On/Off Footwear (QC): 6 Toileting(FIM): 6 Toileting Hygiene (QC): 6 Transfers (B,C,W/C) (FIM): 6 Toilet/Commode Transfer(FIM): 6 Toilet/Commode Transfer (QC): 6 Shower Transfer(FIM): 5 Additional Goals: 1-Demonstrate ADL Tasks, 2-Verbalize Understanding, 3- ImproveStrength/Tariq 1=Demonstrate adherence to instructed precautions during ADL tasks. 2=Patient will verbalize/demonstrate understanding of assistive devices/ modifications for ADL. 3=Patient will improve strength/tolerance for activity to enable patient to perform ADL's. OT Education/Plan Discharge Recommendations Plan/Recommendations: Continue POC Treatment Plan/Plan of Care Patient would benefit from OT for education, treatment and training to promote independence in ADL's, mobility, safety and/or upper extremity function for ADL' s. Plan of Care: ADL Retraining, Caregiver Training, Concurrent Therapy, Functional Mobility, Group Exercise/Act as Ind, UE Funct Exercise/Act, UE Neuromus Re-Ed/Coord, W/C Management Training Treatment Duration: Dec 20, 2017 Frequency: At least 5 of 7 days/Wk (IRF) Estimated Hrs Per Day: 1.5 hours per day Agreement: Yes Rehab Potential: Good Time/GCodes Start Time: 06:45 Stop Time: 07:45 Total Time Billed (hr/min): 60 Billed Treatment Time 1 visit-ADL 4 (60 min) JOHNNIE BRAY Dec 07, 2017 07:41
--- NOTE | 2017-12-07 08:09 | Progress Note (SOAP) ---
Subjective Time Seen by Provider: 08:05 Subjective/Events-last exam Patient feel right carpal tunnel giving him pain. Knee is not hurting them much. Patient still needs a walker to get around. Patient feels he is improving Objective Exam Vital Signs Date Time Temp Pulse Resp B/P (MAP) Pulse Ox O2 Delivery O2 Flow Rate FiO2 12/07/17 06:47 98.4 70 20 122/72 (89) 94 Room Air 12/06/17 20:30 Room Air 12/06/17 17:43 96.8 70 16 112/73 (86) 95 Room Air 12/06/17 09:00 Room Air I & O 12/07/17 07:00 Intake Total 1000 ml Balance 1000 ml Capillary Refill : General Appearance: No Apparent Distress, WD/WN HEENT: Normal ENT Inspection Neck: Normal Inspection, Non Tender Respiratory: Lungs Clear, No Accessory Muscle Use, No Respiratory Distress Cardiovascular: Regular Rate, Rhythm, No Murmur Assessment/Plan Assessment/Plan Assess & Plan/Chief Complaint Debility. Right carpal tunnel. Hypertension. GERD. Right knee pain. Lives alone. Unable to take care of himself. . 11/30/17. Debility. Right carpal tunnel. Right knee pain. Hypertension. GERD. Patient lives alone. Patient unable to take care of himself at home. . 12/03/17. Debility. Right carpal tunnel. Right knee pain. Hypertension. GERD. Patient not wearing his brace. Patient doing more. . 12/04/17. Debility. Right knee pain. Right carpal tunnel. Hypertension. Patient getting around with walker. Patient feels he is improving. . 7 swears 5/taking. Debility. Right carpal tunnel. Hypertension. GERD. Right knee pain. Patient is evaluated by orthopedics. . . Right carpal tunnel. Upper arm hurts during the night when he sleeps. Debility. Knee problem. GERD. Right knee pain. Pain is improved Clinical Quality Measures DVT/VTE Risk/Contraindication: Risk Factor Score Per Nursin RFS Level Per Nursing on Admit: 4+=Very High JENNIFER SANTOYO DO Dec 07, 2017 08:09
--- NOTE | 2017-12-07 08:36 | PM & R (SOAP) Progress Note ---
Subjective This was a face to face visit with the patient. Date Seen by Provider: Dec 07, 2017 Time Seen by Provider: 07:45 Subjective/Events-last exam Patient was seen in his room this AM feeling better and rt knee pain improving.Patient SBA for transfers and gait with WW Review of Systems Musculoskeletal: leg pain Objective Physician Exam Last Set of Vital Signs Vital Signs Date Time Temp Pulse Resp B/P (MAP) Pulse Ox O2 Delivery O2 Flow Rate FiO2 12/07/17 06:47 98.4 70 20 122/72 (89) 94 Room Air Capillary Refill : I&O Intake and Output 12/07/17 00:00 Intake Total 1225 ml Balance 1225 ml Intake Oral 1225 ml # Voids 10 General: Alert, Oriented X3, Cooperative, No Acute Distress HEENT: Atraumatic, PERRLA, EOMI, Mucous Memb Moist/[place] Neck: Supple, No JVD Lungs: Clear to Auscultation Heart: Regular Rate Abdomen: Normal Bowel Sounds, Soft, No Tenderness Extremities: Other (swelling rt knee) Skin: Other (Abrasion rt knee) Neuro: Other (Good - strength RUE Good on left Rt Knee in brace Cognitively intact) Assessment/Plan Assessment and Plan Rt Knee pain due to possible Lat meniscus tear RT Leg weakness improving with Radiologist to review outside films of L spine CTS with rt arm weakness Constipation improved Hemorroidal pain improved Reactive anxiety HTN controlled Gout on meds Plan Continue PT/OT Discharge proabably next week with f/u with ortho and PCP on an outpatient basis Ortho telephonic nurse case manager for the next several days is orthospine and they have declined to see F/U with SW re details of discharge plan (1) Knee strain Status: Acute Co-Morbidities that are continuing to impact the rehab process: (include details ) KARISSA GIORDANO MD Dec 07, 2017 08:36
[2017-12-07] MEDS: DULoxetine 30 MG (CYMBALTA) CAP PO SCH (08:39)
[2017-12-07] MEDS: HYDROCHLOROTHIAZIDE 12.5 MG (HCTZ) CAP PO SCH (08:40)
[2017-12-07] MEDS: VALSARTAN 160 MG (DIOVAN) TABLET PO SCH (08:40)
[2017-12-07] MEDS: SENNA W/DOCUSATE (SENOKOT S) TABLET PO SCH ×3 (08:40→21:25)
[2017-12-07] MEDS: NEO/POLY/BAC (NEOSPORIN) OINT 15 GM TUBE TOP SCH ×2 (09:07→21:25)
[2017-12-07] MEDS: POLYETHYLENE GLYCOL 17 GM (MIRALAX) PACK PO SCH ×2 (09:07→21:25)
--- NOTE | 2017-12-07 09:07 | Physical Therapy Daily Note ---
PT Daily Note-Current Subjective Pt. agrees to Rx and state he feels so much stronger and will begin to make DC plans soon Pain Numeric Pain Scale: 0-No Pain Mental Status Patient Orientation: Normal For Age Transfers Functional [place] Measure 0=Not Assessed/NA 4=Minimal Assistance 1=Total Assistance 5=Supervision or Setup 2=Maximal Assistance 6=Modified [place] 3=Moderate Assistance 7=Complete IndependenceIRFPAI Quality Coding Scale 6 Independent with activity with or without an assistive device 5 Patient requires set up or clean up by helper. Patient completes activity by themselves 4 Supervision or touching assist (CGA). [place] provide cues , steadying assist 3 The helper provides less than half the effort to complete the activity 2 The helper provides more than half the effort to complete the activity 1 Dependent. The helper does all the effort to complete an activity 7 Patient refused to complete or attempt activity 9 The patient did not perform the activity before the current illness or injury 88 Not attempted due to Medical conditions or safety concerns Transfers (B, C, W/C) (FIM): 6 Scootin Rollin Supine to/from Sit: 6 Sit to/from Stand: 6 Weight Bearing Right Lower Extremity: Right Full Weight Bearing Left Lower Extremity: Left Full Weight Bearing Gait Training Does the Patient Walk?: Yes Gait (FIM): 5 Distance (FIM): 3=150 ft (175x2) Gait Level of Assist: 5 Gait Persons Needed: 1 Gait Assistive Device: FWW a few cues for turning and alignment Wheelchair Training Does the Pt Use a Wheelchair?: No Stair Training Stair Training: Handrails/: 2 handrails Stairs (FIM): 2 #of Steps: 4 Stairs: Pattern: Step to Level of Assist: 4 instruction in sequence and wt bearing Exercises Supine Ex: Bridging, Ankle pumps, Quad Set, Rolling, Glut sets, Heel Slides, Short Arc Quads, Scooting, Hip abd/add Supine Reps: 15 Assessment Current Status: Good Progress PT Short Term Goals Short Term Goals Time Frame: Dec 06, 2017 Transfers (B,C,W/C) (FIM): 5 Gait (FIM): 2 Gait Distance Comment: 50' Gait Level of Assist: 4 Gait Assistive Device: FWW Wheelchair Distance: 50' PT Usp Goals Usp Goals PT Yarn Polishing Machine Operator Goals Time Frame: Dec 20, 2017 Transfers (B,C,W/C) (FIM): 5 Sit to Lying (QC): 4 Lying-Sitting on Side/Bed(QC): 4 Sit to Stand (QC): 4 Rollin Roll Left to Right (QC): 4 Chair/Key-or-Gobnb Xfer(QC): 4 Car Transfer (QC): 4 Gait (FIM): 5 Distance: 150' Walk 10 feet (QC): 4 Walk 10ft-Uneven Surface(QC): 4 Walk 50ft with 2 Turns (QC): 4 Walk 150 ft (QC): 4 Gait Level of Assist: 5 Gait Assistive Device: FWW Stairs (FIM): 2 # of Steps: 4 1 Step (curb) (QC): 4 4 Steps (QC): 4 Stairs Level Of Assist: 4 PT Plan Treatment/Plan Treatment Plan: Continue Plan of Care Treatment Plan: Bed Mobility, Education, Functional Activity Tariq, Functional Strength, Group Therapy, Gait, Safety, Therapeutic Exercise, Transfers Treatment Duration: Dec 20, 2017 Frequency: At least 5 of 7 days/Wk (IRF) Estimated Hrs Per Day: 1.5 hours per day Patient and/or Family Agrees t: Yes Safety Risks/Education Patient Education: Gait Training, Transfer Techniques, Steps, Correct Positioning, Safety Issues Teaching Recipient: Patient Teaching Methods: Demonstration, Discussion Response to Teaching: Verbalize Understanding, Return Demonstration, Reinforcement Needed Time/GCodes Time In: 800 Time Out: 900 Total Billed Treatment Time: 60 Total Billed Treatment 1,EX20m,FA25m,GT15m G Codes Necessary: ADRIANNE Key WASHER MACHINE Dec 07, 2017 09:07
--- NOTE | 2017-12-07 14:50 | Therapy Group Daily Note ---
Therapy Daily Group Note Patient Education Topic Other List Below (Environmental safety) Exercises Fine Motor, UE Exercise Other/Notes Pt ambulated using FWW to OT group in [facility]. Group consisted of introductions (name, place living, childhood games), socialization, UE gross motor and fine motor tasks and environmental signs/education for safety. Pt introduced self appropriately and actively listened to peers. Pt contributed to discussions and initiated discussions with peers. Pt was able to complete UE tasks appropriately to increase strength and dexterity for functional daily tasks. Pt was able to verbalize understanding of educational topic and give examples of safe solutions. After therapy, pt sitting in recliner with call light/phone in reach. All needs met in room. Start Time: 13:00 Stop Time: 14:15 Total Billed Treatment Time: 75 Total Billed Treatment 1-GRP JOHNNIE BRAY Dec 07, 2017 14:50
[2017-12-07 16:55] VITALS: BP 125/68
[2017-12-08] MEDS: HYDROcodone/APAP 7.5 MG/325 MG (LORTAB, LORCET PLUS) TABLET PO PRN ×3 (04:07→21:16)
[2017-12-08 05:10] VITALS: BP 115/69
[2017-12-08] MEDS: PYRIDOXINE (VITAMIN B-6) 50 MG TABLET PO SCH (06:38)
[2017-12-08] MEDS: PANTOPRAZOLE 20 MG TABLET (PROTONIX) PO SCH (06:38)
[2017-12-08] MEDS: HYDROCHLOROTHIAZIDE 12.5 MG (HCTZ) CAP PO SCH (08:17)
[2017-12-08] MEDS: VALSARTAN 160 MG (DIOVAN) TABLET PO SCH (08:17)
[2017-12-08] MEDS: POLYETHYLENE GLYCOL 17 GM (MIRALAX) PACK PO SCH ×2 (08:18→21:16)
[2017-12-08] MEDS: DULoxetine 30 MG (CYMBALTA) CAP PO SCH (08:18)
--- NOTE | 2017-12-08 08:33 | PM & R (SOAP) Progress Note ---
Subjective This was a face to face visit with the patient. Date Seen by Provider: Dec 08, 2017 Time Seen by Provider: 07:45 Subjective/Events-last exam Patient was seen in his room this AM Patient Modified Independent for transfers Patient reviewing Brochures for assisted Living facilities in [place]-May be discharged on Sunday12-10-17 if arrangements can be made as patient does not wish to return home alone Objective Physician Exam Last Set of Vital Signs Vital Signs Date Time Temp Pulse Resp B/P (MAP) Pulse Ox O2 Delivery O2 Flow Rate FiO2 12/08/17 08:15 Room Air 12/08/17 05:10 98.1 70 18 115/69 (84) 96 Capillary Refill : I&O Intake and Output 12/08/17 00:00 Intake Total 1150 ml Balance 1150 ml Intake Oral 1150 ml # Voids 9 # Bowel Movements 3 General: Alert, Oriented X3, Cooperative, No Acute Distress HEENT: Atraumatic, PERRLA, EOMI, Mucous Memb Moist/[place] Neck: Supple, No JVD Lungs: Clear to Auscultation Heart: Regular Rate Abdomen: Normal Bowel Sounds, Soft, No Tenderness Extremities: Other (swelling rt knee) Skin: Other (Abrasion rt knee) Neuro: Other (Good - strength RUE Good on left Rt Knee in brace Cognitively intact) Assessment/Plan Assessment and Plan RT Knee pain due to possible Lateral meniscus tear RT leg weakness improving CTS with weakness rt Upper limb Constipation improved Hemorroidal pain improved Reactive anxiety HTN controlled Gout on med Plan Continue Pt/OT F/U on Sunday12-10-17 with to confirm discharge plans to a local [facility] rather then to home with [facility] Current meds reviewed (1) Knee strain Status: Acute Co-Morbidities that are continuing to impact the rehab process: (include details ) KARISSA GIORDANO MD Dec 08, 2017 08:33
[2017-12-08] MEDS: NEO/POLY/BAC (NEOSPORIN) OINT 15 GM TUBE TOP SCH ×2 (09:30→21:16)
[2017-12-08] MEDS: SENNA W/DOCUSATE (SENOKOT S) TABLET PO SCH ×2 (11:15→21:16)
--- NOTE | 2017-12-08 12:00 | Physical Therapy Daily Note ---
PT Daily Note-Current Subjective Pt agreeable. Pt denies pain. Mental Status Patient Orientation: Person, Place, Situation Transfers Functional [place] Measure 0=Not Assessed/NA 4=Minimal Assistance 1=Total Assistance 5=Supervision or Setup 2=Maximal Assistance 6=Modified [place] 3=Moderate Assistance 7=Complete IndependenceIRFPAI Quality Coding Scale 6 Independent with activity with or without an assistive device 5 Patient requires set up or clean up by helper. Patient completes activity by themselves 4 Supervision or touching assist (CGA). [place] provide cues , steadying assist 3 The helper provides less than half the effort to complete the activity 2 The helper provides more than half the effort to complete the activity 1 Dependent. The helper does all the effort to complete an activity 7 Patient refused to complete or attempt activity 9 The patient did not perform the activity before the current illness or injury 88 Not attempted due to Medical conditions or safety concerns Trnsfers in/out chair mod (I) Weight Bearing Right Lower Extremity: Right Full Weight Bearing Left Lower Extremity: Left Full Weight Bearing Exercises Seated Therapy Exercises: Long arc quads, Hip flexion Seated Reps: 20 NuStep Minutes: 5 NuStep Workload: 5 Treatments Pt amb with FWW and SBA x 330ft, steady speed. Assessment Current Status: Good Progress 1, gait x 15min, Ther ex x 10min PT Short Term Goals Short Term Goals Time Frame: Dec 06, 2017 Transfers (B,C,W/C) (FIM): 5 Gait (FIM): 2 Gait Distance Comment: 50' Gait Level of Assist: 4 Gait Assistive Device: FWW Wheelchair Distance: 50' PT Electrical Inspector Goals [facility] Goals PT Electrical Inspector Goals Time Frame: Dec 20, 2017 Transfers (B,C,W/C) (FIM): 5 Sit to Lying (QC): 4 Lying-Sitting on Side/Bed(QC): 4 Sit to Stand (QC): 4 Rollin Roll Left to Right (QC): 4 Chair/Tul-bj-Osevf Xfer(QC): 4 Car Transfer (QC): 4 Gait (FIM): 5 Distance: 150' Walk 10 feet (QC): 4 Walk 10ft-Uneven Surface(QC): 4 Walk 50ft with 2 Turns (QC): 4 Walk 150 ft (QC): 4 Gait Level of Assist: 5 Gait Assistive Device: FWW Stairs (FIM): 2 # of Steps: 4 1 Step (curb) (QC): 4 4 Steps (QC): 4 Stairs Level Of Assist: 4 PT Plan Treatment/Plan Treatment Plan: Continue Plan of Care Treatment Plan: Bed Mobility, Education, Functional Activity Tariq, Functional Strength, Group Therapy, Gait, Safety, Therapeutic Exercise, Transfers Treatment Duration: Dec 20, 2017 Frequency: At least 5 of 7 days/Wk (IRF) Estimated Hrs Per Day: 1.5 hours per day Patient and/or Family Agrees t: Yes Time/GCodes Time In: 810 Time Out: 833 Total Billed Treatment Time: 23 Total Billed Treatment 1, gait 13min, ther ex 10min BRITTANIE HURTADO CPTA Dec 08, 2017 12:00
[2017-12-08 18:22] VITALS: BP 114/60
[2017-12-09] MEDS: HYDROcodone/APAP 7.5 MG/325 MG (LORTAB, LORCET PLUS) TABLET PO PRN ×2 (03:50→21:47)
[2017-12-09 05:05] VITALS: BP 107/72
[2017-12-09] MEDS: PANTOPRAZOLE 20 MG TABLET (PROTONIX) PO SCH (06:07)
[2017-12-09] MEDS: PYRIDOXINE (VITAMIN B-6) 50 MG TABLET PO SCH (06:07)
[2017-12-09] MEDS: POLYETHYLENE GLYCOL 17 GM (MIRALAX) PACK PO SCH ×2 (08:57→19:37)
[2017-12-09] MEDS: DULoxetine 30 MG (CYMBALTA) CAP PO SCH (09:21)
[2017-12-09] MEDS: HYDROCHLOROTHIAZIDE 12.5 MG (HCTZ) CAP PO SCH (09:21)
[2017-12-09] MEDS: SENNA W/DOCUSATE (SENOKOT S) TABLET PO SCH ×2 (09:21→20:18)
[2017-12-09] MEDS: VALSARTAN 160 MG (DIOVAN) TABLET PO SCH (09:21)
[2017-12-09] MEDS: NEO/POLY/BAC (NEOSPORIN) OINT 15 GM TUBE TOP SCH ×2 (09:25→20:19)
[2017-12-09 17:50] VITALS: BP 111/67
[2017-12-10] MEDS: HYDROcodone/APAP 7.5 MG/325 MG (LORTAB, LORCET PLUS) TABLET PO PRN ×2 (02:55→07:55)
[2017-12-10 05:03] VITALS: BP 132/77
[2017-12-10] MEDS: PANTOPRAZOLE 20 MG TABLET (PROTONIX) PO SCH (06:15)
[2017-12-10] MEDS: PYRIDOXINE (VITAMIN B-6) 50 MG TABLET PO SCH (06:15)
--- NOTE | 2017-12-10 07:40 | Progress Note (SOAP) ---
Subjective Time Seen by Provider: 07:30 Subjective/Events-last exam Patient to be discharged today. Patient have outpatient surgery for right carpal when he feels better. Patient seeing a doctor at [address] [place] [address]. Debility. Patient uses walker to get around Objective Exam Vital Signs Date Time Temp Pulse Resp B/P (MAP) Pulse Ox O2 Delivery O2 Flow Rate FiO2 12/10/17 05:03 97.7 77 18 132/77 (95) 95 Room Air 12/09/17 21:00 Room Air 12/09/17 17:50 98.4 54 16 111/67 (82) 97 Room Air 12/09/17 09:06 Room Air I & O 12/10/17 07:00 Intake Total 1140 ml Balance 1140 ml Capillary Refill : General Appearance: No Apparent Distress, WD/WN Assessment/Plan Assessment/Plan Assess & Plan/Chief Complaint Debility. Right carpal tunnel. Hypertension. GERD. Right knee pain. Lives alone. Unable to take care of himself. . 11/30/17. Debility. Right carpal tunnel. Right knee pain. Hypertension. GERD. Patient lives alone. Patient unable to take care of himself at home. . 12/03/17. Debility. Right carpal tunnel. Right knee pain. Hypertension. GERD. Patient not wearing his brace. Patient doing more. . 12/04/17. Debility. Right knee pain. Right carpal tunnel. Hypertension. Patient getting around with walker. Patient feels he is improving. . 7 swears 5/taking. Debility. Right carpal tunnel. Hypertension. GERD. Right knee pain. Patient is evaluated by orthopedics. . . Right carpal tunnel. Upper arm hurts during the night when he sleeps. Debility. Knee problem. GERD. Right knee pain. Pain is improved. . 12/10/17. Debility. Knee problem. Right carpal tunnel problem. Patient states when he feels better and will have the surgery done by his orthopedic doctor at [address] [place] [address] Clinical Quality Measures DVT/VTE Risk/Contraindication: Risk Factor Score Per Nursin RFS Level Per Nursing on Admit: 4+=Very High JENNIFER SANTOYO DO Dec 10, 2017 07:40
[2017-12-10] MEDS: HYDROCHLOROTHIAZIDE 12.5 MG (HCTZ) CAP PO SCH (07:55)
[2017-12-10] MEDS: DULoxetine 30 MG (CYMBALTA) CAP PO SCH (07:55)
[2017-12-10] MEDS: NEO/POLY/BAC (NEOSPORIN) OINT 15 GM TUBE TOP SCH (07:56)
[2017-12-10] MEDS: VALSARTAN 160 MG (DIOVAN) TABLET PO SCH (07:56)
--- NOTE | 2017-12-10 08:02 | Occupational Ther Daily Note ---
OT Current Status-Daily Note Subjective Pt alert, lying in bed. Pt agrees to therapy. Pt c/o pain, did not rate. Reported to nrsg. Mental Status/Objective Patient Orientation: Person, Place, Time, Situation Functional [place] Measure 0=Not Assessed/NA 4=Minimal Assistance 1=Total Assistance 5=Supervision or Setup 2=Maximal Assistance 6=Modified [place] 3=Moderate Assistance 7=Complete [place] ADL-Treatment Functional [place] Measure 0=Not Assessed/NA 4=Minimal Assistance 1=Total Assistance 5=Supervision or Setup 2=Maximal Assistance 6=Modified [place] 3=Moderate Assistance 7=Complete IndependenceIRFPAI Quality Coding Scale 6 Independent with activity with or without an assistive device 5 Patient requires set up or clean up by helper. Patient completes activity by themselves 4 Supervision or touching assist (CGA). [place] provide cues , steadying assist 3 The helper provides less than half the effort to complete the activity 2 The helper provides more than half the effort to complete the activity 1 Dependent. The helper does all the effort to complete an activity 7 Patient refused to complete or attempt activity 9 The patient did not perform the activity before the current illness or injury 88 Not attempted due to Medical conditions or safety concerns Eating (FIM): 7 (Opens packages/containers by self. Uses regular utensils to eat with.) Eating (QC): 6 Grooming (FIM): 7 (Uses counter to stand at sink. Completes all grooming by self.) Oral Hygiene (QC): 6 Bathing (FIM): 6 (Using shower bench, grabbars, long handle sponge and grabbars. Pt able to complete by self. Pt prefers to automatic spinning lathe setter shower.) Bathing Location: L Arm, R Arm, L Upper Leg, R Upper Leg, L Lower Leg ( including foot), R Lower Leg (including foot), Chest, Abdomen, Buttocks, Perineal Area Shower/Bathe Self (QC): 6 Upper Body (FIM): 6 (Using FWW to retrieve clothing pt able to complete by self.) Upper Body Dressing (QC): 6 Lower Body Dressing (FIM): 6 (Using FWW to retrieve clothing pt able to complete by self.) Lower Body Dressing (QC): 6 On/Off Footwear (QC): 6 Toileting (FIM): 6 (Using) Toileting Hygiene (QC): 6 Transfers (B, C, W/C) (FIM): 6 (Using FWW completes by self.) Toilet/Commode Transfer (FIM): 6 (Using FWW and grabbar pt able to complete by self.) Toilet Transfer (QC): 6 Shower Transfer(FIM): 6 (Using shower bench, grabbar and FWW pt able to complete by self.) OT Short Term Goals Short Term Goals Time Frame: Dec 06, 2017 Eating(FIM): 5 Grooming(FIM): 5 Bathing(FIM): 5 Upper Body Dressing(FIM): 5 Lower Body Dressing(FIM): 4 Toileting(FIM): 5 Transfers (B,C,W/C) (FIM): 5 Toilet/Commode Transfer(FIM): 5 Additional Short Term Goals: 1-Demonstrate ADL Tasks, 2-Verbalize Understanding , 3-ImproveStrength/Tariq 1=Demonstrate adherence to instructed precautions during ADL tasks. 2=Patient will verbalize/demonstrate understanding of assistive devices/ modifications for ADL. 3=Patient will improve strength/tolerance for activity to enable patient to perform ADL's. OT Senior Care Goals Reinforcing [employer] Re[employer] Workers Goals Time Frame: Dec 20, 2017 Eating (FIM): 6 Eating (QC): 6 Groomin Oral Hygiene (QC): 6 Bathing(FIM): 5 Shower/Bathe Self (QC): 5 Upper Body Dressing(FIM): 6 Upper Body Dressing (QC): 6 Lower Body Dressing(FIM): 6 Lower Body Dressing (QC): 6 On/Off Footwear (QC): 6 Toileting(FIM): 6 Toileting Hygiene (QC): 6 Transfers (B,C,W/C) (FIM): 6 Toilet/Commode Transfer(FIM): 6 Toilet/Commode Transfer (QC): 6 Shower Transfer(FIM): 5 Additional Goals: 1-Demonstrate ADL Tasks, 2-Verbalize Understanding, 3- ImproveStrength/Tariq 1=Demonstrate adherence to instructed precautions during ADL tasks. 2=Patient will verbalize/demonstrate understanding of assistive devices/ modifications for ADL. 3=Patient will improve strength/tolerance for activity to enable patient to perform ADL's. OT Education/Plan Discharge Recommendations Plan/Recommendations: Continue POC Treatment Plan/Plan of Care Patient would benefit from OT for education, treatment and training to promote independence in ADL's, mobility, safety and/or upper extremity function for ADL' s. Plan of Care: ADL Retraining, Caregiver Training, Concurrent Therapy, Functional Mobility, Group Exercise/Act as Ind, UE Funct Exercise/Act, UE Neuromus Re-Ed/Coord, W/C Management Training Treatment Duration: Dec 20, 2017 Frequency: At least 5 of 7 days/Wk (IRF) Estimated Hrs Per Day: 1.5 hours per day Agreement: Yes Rehab Potential: Good Time/GCodes Start Time: 06:55 Stop Time: 08:00 Total Time Billed (hr/min): 65 Billed Treatment Time 1 visit-ADL 4 (65 min) JOHNNIE BRAY Dec 10, 2017 08:02
[2017-12-10] MEDS: POLYETHYLENE GLYCOL 17 GM (MIRALAX) PACK PO SCH (10:18)
[2017-12-10] MEDS: SENNA W/DOCUSATE (SENOKOT S) TABLET PO SCH (10:18)
--- NOTE | 2017-12-10 10:48 | D/C HH Face to Face Order ---
D/C Face to Face Orders Instructions for Patient Patient Instructions/FollowUp: Dr. Manpreet Schumacher Physician to follow Patient: Dr. Manpreet Schumacher Discharge Diet for Home: Regular Diet Patient Data-Allergies,Ht & Wt Patient Allergies: Coded Allergies: No Known Drug Allergies (Unverified , 11/28/17) Height (Feet): 6 Height (Inches): 3.00 Weight (Pounds): 269 Weight (Ounces): 11.2 Home Health Need/Face to Face Date of Face to Face: Dec 10, 2017 Clinical Findings: Generalized weakness and fatigue, Muscle weakness, Unsteady gait I have seen Pt [id number]: Yes Discharged To: Home Diagnosis/Conditions: Debility Patient is Homebound due to: Ojny fall risk due to instabilty, Muscle weakness Homebound Status Due to the above stated illness, injury or surgical procedure (medical condition or diagnosis) and associated clinical findings, the patient is homebound because of his/her inability to leave home except with aid of a supportive device and/or person AND leaving the home requires a considerable and taxing effort or is medically contraindicated. Pt req the following assistanc: Walker Home Health Nursing Orders Home Health Services Order: Code Machine Operator-Evaluate & Treat, Physical Therapy-Evaluate & Treat Therapy Orders Therapy Orders: OT (must have SN or PT order), Physical Therapy Therapy Specific Orders: Eval assistive deivces, Teach enviro modifications/ safety, Gait training, Increase strength/endurance Certify Stmt I certify that this patient is under my care and that I, a nurse practitioner or a physician; a assistant food service director working with me, had a face to face encounter that - meets the physician face to face encounter requirements with this patient as dated. I personally scribed for KARISSA GIORDANO MD ([facility]) on 12/10/17 at 10:48. Electronically submitted by Lauren Bella ([id number]). KARISSA GIORDANO MD Dec 10, 2017 10:48
--- NOTE | 2017-12-10 10:49 | Physical Therapy Daily Note ---
PT Daily Note-Current Subjective Pt. agrees to Rx, looking forward to going home but he is also now considering admission to [facility] if it doesnt work out at home b/c his Mother is a resident there and his nephew is a PT there Pain Numeric Pain Scale: 0-No Pain Mental Status Patient Orientation: Normal For Age Transfers Functional Perry Measure 0=Not Assessed/NA 4=Minimal Assistance 1=Total Assistance 5=Supervision or Setup 2=Maximal Assistance 6=Modified [place] 3=Moderate Assistance 7=Complete IndependenceIRFPAI Quality Coding Scale 6 Independent with activity with or without an assistive device 5 Patient requires set up or clean up by helper. Patient completes activity by themselves 4 Supervision or touching assist (CGA). [place] provide cues , steadying assist 3 The helper provides less than half the effort to complete the activity 2 The helper provides more than half the effort to complete the activity 1 Dependent. The helper does all the effort to complete an activity 7 Patient refused to complete or attempt activity 9 The patient did not perform the activity before the current illness or injury 88 Not attempted due to Medical conditions or safety concerns Transfers (B, C, W/C) (FIM): 6 Scootin Rollin Roll Left to Right (QC): 5 Supine to/from Sit: 6 Sit to/from Stand: 6 Sit to Lying (QC): 5 Sit to Stand (QC): 5 Chair/Jnd-xh-Fjefr Xfer(QC): 5 Bed to/from Chair: 6 Car Transfer (QC): 5 Weight Bearing Right Lower Extremity: Right Full Weight Bearing Left Lower Extremity: Left Full Weight Bearing Gait Training Does the Patient Walk?: Yes Gait (FIM): 6 Distance (FIM): 3=150 ft (170x2) Walk 10 feet (QC): 5 Walk 50 ft with 2 Turns(QC): 5 Walk 150 ft (QC): 5 Walking 10ft/uneven surface-QC: 5 Gait Level of Assist: 6 Gait Persons Needed: 0 Gait Assistive Device: FWW Wheelchair Training Does the Pt Use a Wheelchair?: No Stair Training Stair Training: Handrails/: 2 handrails Stairs (FIM): 5 #of Steps: 4 1 Step (curb) (QC): 5 4 Steps (QC): 5 Stairs: Pattern: Step to Level of Assist: 5 household exception Balance Special Test Comments unsafe to p/u object Exercises Supine Ex: Rolling, Heel Slides, Straight leg raise, Hip abd/add Supine Reps: 10 Assessment Current Status: Good Progress meets goals but pt. is at risk for falling. Speaks of going home to go outside to feed animals and mow pastures and lawns. Pt. would like to go home with help of neighbors and have option of going to [facility] within 30 days if needed PT Short Term Goals Short Term Goals Time Frame: Dec 06, 2017 Transfers (B,C,W/C) (FIM): 5 Gait (FIM): 2 Gait Distance Comment: 50' Gait Level of Assist: 4 Gait Assistive Device: FWW Wheelchair Distance: 50' PT Walking Dragline Oiler Goals Walking Dragline Oiler Goals PT Walking Dragline Oiler Goals Time Frame: Dec 20, 2017 Transfers (B,C,W/C) (FIM): 5 Sit to Lying (QC): 4 Lying-Sitting on Side/Bed(QC): 4 Sit to Stand (QC): 4 Rollin Roll Left to Right (QC): 4 Chair/Mjp-gu-Qywnc Xfer(QC): 4 Car Transfer (QC): 4 Gait (FIM): 5 Distance: 150' Walk 10 feet (QC): 4 Walk 10ft-Uneven Surface(QC): 4 Walk 50ft with 2 Turns (QC): 4 Walk 150 ft (QC): 4 Gait Level of Assist: 5 Gait Assistive Device: FWW Stairs (FIM): 2 # of Steps: 4 1 Step (curb) (QC): 4 4 Steps (QC): 4 Stairs Level Of Assist: 4 PT Plan Treatment/Plan Treatment Plan: Continue Plan of Care Treatment Plan: Bed Mobility, Education, Functional Activity Tariq, Functional Strength, Group Therapy, Gait, Safety, Therapeutic Exercise, Transfers Treatment Duration: Dec 20, 2017 Frequency: At least 5 of 7 days/Wk (IRF) Estimated Hrs Per Day: 1.5 hours per day Patient and/or Family Agrees t: Yes Safety Risks/Education Patient Education: Gait Training, Transfer Techniques, Steps, Correct Positioning, Disease Process, Safety Issues Teaching Recipient: Patient Teaching Methods: Demonstration, Discussion Response to Teaching: Verbalize Understanding, Return Demonstration, Reinforcement Needed Time/GCodes Time In: 930 Time Out: 1030 Total Billed Treatment Time: 60 Total Billed Treatment 1,FA40m,GT20m G Codes Necessary: ADRIANNE Key PLASTERER JOURNEYMAN Dec 10, 2017 10:49
[2017-12-10] MEDS ORDERED: DULO30CA3 PO (12:06)
[2017-12-10] MEDS ORDERED: PYRI50TA10 PO (12:06)
[2017-12-10] MEDS ORDERED: NEOM28.33 TOP (12:06)
[2017-12-10] MEDS ORDERED: HYDR12.5 PO (12:06)
[2017-12-10] MEDS ORDERED: VALS160T29 PO (12:06)
[2017-12-10] MEDS ORDERED: IBUP-2055 PO (12:06)
--- NOTE | 2017-12-10 12:45 | Therapy Team Discharge Summary ---
Therapy Discharge Summary Discharge Recommendations Date of Discharge Therapy D/C Recommendations: Home w/ Family Support, Occupational Therapy Home Care Physical Therapy Patient came to rehab with debility. Upon evaluation patient performed supine < -> sit with min assist (needs assist getting his right leg into and out of bed) , sit to stand with max assist, stand pivot transfer with CGA. Patient cannot perform a car transfer at this time because of his right leg brace which keeps his leg in full extension, ambulated 20' with a rolling walker with CGA, including 10' over an uneven surface, and can propel a manual wheelchair 50' with SBA. Patient has been performing bed mobility and transfer training, balance and endurance training functional strengthening, stair training, gait training, and education. Patient has made good progress and has met all of his intermission coordinator goals. Now, patient performs bed mobility and transfers with mod I, car transfer mod I, ambulates 170' with a rolling walker with mod I (including 50' with at least 2 turns of 90 degrees and 10' over an uneven surface), and can go up an down 4 steps using 2 handrails with SBA. Patient is being discharged from this facility today and will be discharged from PT at this time. Occupational Therapy Decreased Activ Tolerance, Decreased UE Strength, Impaired Bed Mobility, Impaired Funct Balance, Impaired I ADL's, Impaired Self-Care Skills PT Tar Kettle Runner Goals Tar Kettle Runner Goals PT Tar Kettle Runner Goals Time Frame: Dec 20, 2017 Transfers (B,C,W/C) (FIM): 5 Roll Left to Right (QC): 4 Sit to Lying (QC): 4 Lying-Sitting on Side/Bed(QC): 4 Sit to Stand (QC): 4 Chair/Ezd-jv-Hvsuj Xfer(QC): 4 Car Transfer (QC): 4 Gait (FIM): 5 Distance: 150' Walk 10 feet (QC): 4 Walk 10ft-Uneven Surface(QC): 4 Walk 50ft with 2 Turns (QC): 4 Walk 150 ft (QC): 4 Gait Level of Assist: 5 Gait Assistive Device: FWW Stairs (FIM): 2 # of Steps: 4 1 Step (curb) (QC): 4 4 Steps (QC): 4 Stairs Level Of Assist: 4 OT Senior Living Goals Tar Kettle Runner Goals Time Frame: Dec 20, 2017 Eating (FIM): 6 Eating (QC): 6 Oral Hygiene (QC): 6 Grooming(FIM): 6 Bathing(FIM): 5 Shower/Bathe Self (QC): 5 Upper Body Dressing(FIM): 6 Upper Body Dressing (QC): 6 Lower Body Dressing(FIM): 6 Lower Body Dressing (QC): 6 On/Off Footwear (QC): 6 Toileting(FIM): 6 Toileting Hygiene (QC): 6 Transfers (B,C,W/C) (FIM): 6 Toilet/Commode Transfer(FIM): 6 Toilet/Commode Transfer (QC): 6 Shower Transfer(FIM): 5 Additional Goals: 1-Demonstrate ADL Tasks, 2-Verbalize Understanding, 3- ImproveStrength/Tariq 1=Demonstrate adherence to instructed precautions during ADL tasks. 2=Patient will verbalize/demonstrate understanding of assistive devices/ modifications for ADL. 3=Patient will improve strength/tolerance for activity to enable patient to perform ADL's. BLAIR SCHULZ PT Dec 10, 2017 12:45
--- NOTE | 2017-12-10 13:25 | Therapy Team Discharge Summary ---
Therapy Discharge Summary Discharge Recommendations Date of Discharge 12-10-17 Therapy D/C Recommendations: Home w/ Family Support, Occupational Therapy Home Care Occupational Therapy Pt. has been seen by occupational therapy to increase overall strength and independence with daily tasks. Pt. has met all goals. Pt. is able to bathe/ dress self with Mod I. Pt. is discharging home with family and friend support. Recommend OT home health care. Decreased Activ Tolerance, Decreased UE Strength, Impaired Bed Mobility, Impaired Funct Balance, Impaired I ADL's, Impaired Self-Care Skills PT Snf Goals Snf Goals PT Snf Goals Time Frame: Dec 20, 2017 Transfers (B,C,W/C) (FIM): 5 Roll Left to Right (QC): 4 Sit to Lying (QC): 4 Lying-Sitting on Side/Bed(QC): 4 Sit to Stand (QC): 4 Chair/Kyh-ja-Cvggg Xfer(QC): 4 Car Transfer (QC): 4 Gait (FIM): 5 Distance: 150' Walk 10 feet (QC): 4 Walk 10ft-Uneven Surface(QC): 4 Walk 50ft with 2 Turns (QC): 4 Walk 150 ft (QC): 4 Gait Level of Assist: 5 Gait Assistive Device: FWW Stairs (FIM): 2 # of Steps: 4 1 Step (curb) (QC): 4 4 Steps (QC): 4 Stairs Level Of Assist: 4 OT Snf Goals Gas Worker Goals Time Frame: Dec 20, 2017 Eating (FIM): 6 (met) Eating (QC): 6 (met) Oral Hygiene (QC): 6 (met) Grooming(FIM): 6 (met) Bathing(FIM): 5 (met) Shower/Bathe Self (QC): 5 (met) Upper Body Dressing(FIM): 6 (met) Upper Body Dressing (QC): 6 (met) Lower Body Dressing(FIM): 6 (met) Lower Body Dressing (QC): 6 (met) On/Off Footwear (QC): 6 (met) Toileting(FIM): 6 (met) Toileting Hygiene (QC): 6 (met) Transfers (B,C,W/C) (FIM): 6 (met) Toilet/Commode Transfer(FIM): 6 (met) Toilet/Commode Transfer (QC): 6 (met) Shower Transfer(FIM): 5 (met) Additional Goals: 1-Demonstrate ADL Tasks, 2-Verbalize Understanding, 3- ImproveStrength/Tariq 1=Demonstrate adherence to instructed precautions during ADL tasks. 2=Patient will verbalize/demonstrate understanding of assistive devices/ modifications for ADL. 3=Patient will improve strength/tolerance for activity to enable patient to perform ADL's. SARAH TRENT OT Dec 10, 2017 13:25
--- NOTE | 2017-12-10 17:34 | PM & R (SOAP) Progress Note ---
Subjective This was a face to face visit with the patient. Date Seen by Provider: Dec 10, 2017 Time Seen by Provider: 12:00 Subjective/Events-last exam Patient discharged to home with [facility] today Texted SW re discharge Objective Physician Exam Last Set of Vital Signs Vital Signs Date Time Temp Pulse Resp B/P (MAP) Pulse Ox O2 Delivery O2 Flow Rate FiO2 12/10/17 09:00 Room Air 12/10/17 05:03 97.7 77 18 132/77 (95) 95 Capillary Refill : I&O Intake and Output 12/10/17 00:00 Intake Total 1040 ml Balance 1040 ml Intake Oral 1040 ml # Voids 11 # Bowel Movements 1 General: Alert, Oriented X3, Cooperative, No Acute Distress HEENT: Atraumatic, PERRLA, EOMI, Mucous Memb Moist/[place] Neck: Supple, No JVD Lungs: Clear to Auscultation Heart: Regular Rate Abdomen: Normal Bowel Sounds, Soft, No Tenderness Extremities: Other (swelling rt knee) Skin: Other (Abrasion rt knee) Neuro: Other (Good - strength RUE Good on left Rt Knee in brace Cognitively intact) Assessment/Plan Assessment and Plan Home today with [facility] F/U with PCP and ortho on anoutpatient basis Current meds reviewed see orders (1) Knee strain Status: Acute Co-Morbidities that are continuing to impact the rehab process: (include details ) KARISSA GIORDANO MD Dec 10, 2017 17:34
--- NOTE | 2017-12-18 23:33 | DISCHARGE SUMMARY ---
DATE OF SERVICE: 12/10/2017 HISTORY OF PRESENT ILLNESS: The patient is a 77-year-old male who had been having progressive difficulty with managing home alone in [place], but has supportive neighbors who found him unable to stand due to a fall with right knee pain. He was admitted to [facility] on 11/26/2017, was found to have principal diagnosis of right knee pain after imaging studies done, which included a CT of the knee. He was provided with a knee brace by orthopedics. Therapies were begun. He was felt to be appropriate for inpatient rehabilitation. He relates his initial knee injury to getting off of his lawn tractor several months ago and has had problems with it since. 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 He has an abrasion over the right knee and some swelling and tenderness to touch. He is retired from [employer]. PAST MEDICAL HISTORY: Right-sided weakness, has been seen by neurosurgery with no impingement of cervical spine. According to the patient, he has had electrodiagnostic studies with Dr. Horner in the past revealing some nerve impingement in the right arm and carpal tunnel syndrome explaining for the weakness in his dominant right arm. He has also had imaging studies done of his lumbar spine. He has history of hypertension and GERD. PAST SURGICAL HISTORY: He has had lithotripsy for kidney stones. He also carries a diagnosis of diverticulosis and right carpal tunnel syndrome as per above. He states his right knee demetrius when he walks. MEDICAL COURSE: The patient was followed by Dr. Giordano and Dr. Lowe while on rehab unit. An MRI of the right knee was done, which revealed mild degenerative type and enthesopathy at the distal quadriceps tendon insertion. There are well corticated ossifications near the distal patellar tendon attachment, which may relate to sequelae of prior Oseas-Schlatter disease or remote prior injury. There is a Gilbert's cyst measuring 3 x 1.6 x 4.7 cm in size, which is partially ruptured. The exam was limited due to low signal to noise ratio. There is a probable longitudinal horizontal tear involving at least the body of the lateral meniscus. No definite medial meniscus tear and limited evaluation. Anterior and posterior cruciate ligaments were intact. No acute fracture bone contusion or evidence of osteonecrosis. Partially ruptured Gilbert cyst measuring as per above in size. An orthopedic consult was attempted here, but due to the holiday this was not able to be accomplished and the patient may have followup with the orthopedist that assessed him in [place] regarding this issue. The patient declined to continue wearing his knee brace and he was functioning fairly well and he felt that his strength was improving and he was not having as much problem with buckling. An MRI of the lumbar spine was clouded over, that report is not available at this time. This may certainly be reviewed by his physicians in [place]. I believe the imaging study was of his cervical spine and not the lumbar spine. REHABILITATION COURSE: He progressed well with his therapies, had increased strength and endurance. [place] [facility] and manager social work discussed the possibility of discharge to assisted living facility, but he chose to go home with home health care. PT notes upon admission, the patient was min assist for bed mobility, max assist for sit to stand, contact guard for stand pivot transfer. The patient has made good progress and upon discharge, the patient modified independent with bed mobility and transfers, modified independent with car transfers, can ambulate 170 feet with a wheeled walker with modified independence. OT notes upon admission, the patient was min assist for oral hygiene, setup for grooming and eating and upper body dressing, max assist for lower body dressing, min assist for toileting hygiene and toilet transfers. Upon discharge, the patient is modified independent for eating and oral hygiene, grooming, dressing, toileting, toilet transfers set up for bathing. DISCHARGE INSTRUCTIONS: The patient is discharged to home with home health services. Continue current diet. The patient will follow up with his PCP and orthopedics in [place]. DISCHARGE MEDICATIONS: Cymbalta 30 mg p.o. daily, hydrochlorothiazide 12.5 mg p.o. daily, ibuprofen 400 mg p.o. q. 6 hours p.r.n. mild pain, Neosporin ointment topically b.i.d., vitamin B6 50 mg p.o. daily, valsartan 160 mg p.o. daily. The patient was seen once by Dr. Hoffman, product distribution specialist, for abrasion left knee, which was healing well with topical care. DISCHARGE DIAGNOSES: 1. Rehabilitation, ambulatory dysfunction secondary to strain right knee status post fall. 2. Tear of the body of the lateral meniscus, right knee. 3. Partially ruptured Gilbert's cyst, right knee. 4. Degenerative joint disease, right knee. 5. Carpal tunnel syndrome, right arm. 6. Hypertension, controlled with medication. 7. Gastroesophageal reflux disease, on medication. 8. Reactive anxiety, improved. 9. Constipation, treated. 10. History of nicotine abuse. 11. Strain right knee status post fall. CONDITION AT DISCHARGE: Improved and stable. PROGNOSIS: Rehab prognosis appears good for continued improvement and return to independent living. The patient should definitely have followup with his orthopedist and PCP regarding the above MRI findings of his right knee. He might need to consider [place], so that he has a better support system in case of a medical issue or injury. Job ID: [id number] DocumentID: [id number] Dictated Date: 12/18/2017 09:00:51 Data Entry Email Processor Date: 12/18/2017 23:32:34 Dictated By: KARISSA GIORDANO MD
== END 2017-12-10 14:15 | disposition home health service (06) | DRG 950 ==
PROVIDERS: ADMIT Physical Medicine & Rehabilitation; ATTEND Physical Medicine & Rehabilitation
DX: S83.91XD Sprain of unspecified site of right knee, subsequent encounter (principal); M17.11 Unilateral primary osteoarthritis, right knee; G56.01 Carpal tunnel syndrome, right upper limb; I10 Essential (primary) hypertension; K21.9 Gastro-esophageal reflux disease without esophagitis; F41.1 Generalized anxiety disorder; K59.00 Constipation, unspecified; Z87.891 Personal history of nicotine dependence; W19.XXXD Unspecified fall, subsequent encounter
CPT/HCPCS: 36415; 73721; 80053; 85027

== ENCOUNTER 2018-02-08 11:28 | Emergency (ER) | payer MEDICARE, OTHER ==
[~2018-02-08] VITALS: Ht 190.5 cm; Wt 116.1 kg
[~2018-02-08 11:28] MED LIST: DULO30CA3 PO; HYDR12.5 PO; IBUP-2055 PO; NEOM28.33 TOP; PYRI50TA10 PO; VALA1000 PO; VALS160T29 PO
[2018-02-08] MEDS ORDERED: fentaNYL INJECTION 100 MCG/2 ML AMP IVP ONE (12:15)
[2018-02-08] MEDS ORDERED: ONDANSETRON 4 MG/2 ML (SDV) Z0FRAN IVP ONE (12:15)
--- NOTE | 2018-02-08 12:21 | ED General ---
General Chief Complaint: General Problems/Pain Stated Complaint: PAIN NECK,DIZZY,WEAK Nursing Triage Note: ER LAST WEEK FOR SHINGLES. WAS FEELING BETTER. TODAY HAS HEADACHE, DIZZY, WEAKNESS, PAIN IN RIGHT NECK/JAW,CHIN AREA. COMPLAINS OF RASH TO RIGHT SIDE OF NECK, NONE VISIBLE. Nursing Sepsis Screen: No Definite Risk Source of Information: Patient Exam Limitations: No Limitations History of Present Illness Date Seen by Provider: Feb 08, 2018 Time Seen by Provider: 12:15 Initial Comments To ER with reports of headache general weakness poor appetite dizziness right- sided facial pain. He was seen here on January 29 over ulcers and lesions to the right side of the face. Diagnosed with herpes zoster given valacyclovir which she completed and had marked improvement in his red draining lesions. He denies fevers or chills. States that he lost about 15 pounds in the past week. He does have some right-sided neck and facial pain. He states he is not dizzy at this time. Timing/Duration: Getting Worse, Intermittent Severity: Moderate Associated Systoms: Other (poor appetite) Allergies and Home Medications Allergies Coded Allergies: No Known Drug Allergies (Unverified , 11/28/17) Home Medications Amoxicillin/Potassium Clav 1 Each Tablet, 1 EACH PO BID Prescribed by: KENA THAKUR on 02/08/18 1311 Duloxetine HCl 30 Mg Capsule.dr, 30 MG PO DAILY Prescribed by: KARISSA GIORDANO on 12/10/17 1206 Hydrochlorothiazide 12.5 Mg Capsule, 12.5 MG PO DAILY@0900 Prescribed by: KARISSA GIORDANO on 12/10/17 1206 Hydrocodone/Acetaminophen 1 Each Tablet, 1 EACH PO Q4H PRN for PAIN-MODERATE Prescribed by: KENA THAKUR on 02/08/18 1311 Ibuprofen 200 Mg Tablet, 400 MG PO Q6H PRN for PAIN-MILD Prescribed by: KARISSA GIORDANO on 12/10/17 1206 Neomycin Yañez/Bacitrac Zn/Poly 28.3 Gm Oint...g., 0 GM TOP BID Prescribed by: KARISSA GIORDANO on 12/10/17 1206 Pyridoxine HCl 50 Mg Tablet, 50 MG PO DAILY@0700 Prescribed by: KARISSA GIORDANO on 12/10/17 1206 Valacyclovir HCl 1,000 Mg Tablet, 1,000 MG PO TID Prescribed by: NERY POOL on 01/29/18 1321 Valacyclovir HCl 1,000 Mg Tablet, 1,000 MG PO TID Prescribed by: KENA THAKUR on 02/08/18 1419 Valsartan 160 Mg Tablet, 160 MG PO DAILY Prescribed by: KARISSA GIORDANO on 12/10/17 1206 Patient Home Medication List Home Medication List Reviewed: Yes Review of Systems Review of Systems Constitutional: see HPI; No chills, No fever; malaise, weakness EENTM: see HPI, ear pain; No eye pain Respiratory: no symptoms reported Cardiovascular: no symptoms reported Genitourinary: no symptoms reported Musculoskeletal: no symptoms reported Skin: see HPI Psychiatric/Neurological: No Symptoms Reported Hematologic/Lymphatic: No Symptoms Reported Immunological/Allergic: no symptoms reported Past Jfwabdc-Pdqwuy-Myeeyp Hx Patient Social History Alcohol Use: Denies Use Recreational Drug Use: No Former Smoker, Quit: Jun 04, 2005 Recent Foreign Travel: No Contact w/Someone Who Travel: No Recent Infectious Disease Expo: No Recent Hopitalizations: Yes (Ana VALENTIN) Physical Abuse: No Sexual Abuse: No Immunizations Up To Date Date of Pneumonia Vaccine: Mar 30, 2017 Seasonal Allergies Seasonal Allergies: No Past Medical History Surgeries: Yes (lithotripsy) Respiratory: Yes (uses Albuterol inhaler prn, not often) Currently Using CPAP: No Cardiac: Yes Neurological: No Genitourinary: Yes (sees Dr. Win as urologist, has 1 stone & 1 cyst in Lt kidney) Kidney Stones Gastrointestinal: Yes (sees Dr. Asif, had a scope recently was -) Gastroesophageal Reflux, Diverticulosis Musculoskeletal: Yes (Rt knee demetrius, falls) Arthritis, Chronic Back Pain Endocrine: No HEENT: No (wears glasses) Hearing Impairment: Denies Cancer: No Psychosocial: No Sleep Difficulties, Anxiety Integumentary: Yes (scraped knees from falls) Recent Skin Changes Blood Disorders: No Adverse Reaction/Blood Tranf: No Physical Exam Vital Signs Vital Signs - First Documented 02/08/18 11:47 Temp 98.1 Pulse 78 Resp 16 B/P (MAP) 136/79 (98) Pulse Ox 96 Capillary Refill : Less Than 3 Seconds Height, Weight, BMI Height: 6'3.00" Weight: 256lbs. 11.2oz. [id number]; 33.4 BMI Method:Stated General Appearance: No Apparent Distress, WD/WN Eyes: Bilateral Eye Normal Inspection, Bilateral Eye PERRL, Bilateral Eye EOMI HEENT: PERRL/EOMI, Normal ENT Inspection, Pharynx Normal, Other (There is a bit of erythema to right TM. There are some faint red lesions that are dried and not open or draining around the corner of the mouth of the right, lateral to lateral canthus of right eye. ) Neck: Full Range of Motion, Normal Inspection Respiratory: Lungs Clear, Normal Breath Sounds, No Accessory Muscle Use, No Respiratory Distress Cardiovascular: Regular Rate, Rhythm, Normal Peripheral Pulses Gastrointestinal: Normal Bowel Sounds, Non Tender, Soft Extremity: Normal Capillary Refill, Normal Inspection Neurologic/Psychiatric: Alert, Oriented x3, No Motor/Sensory Deficits Skin: Normal Color, Warm/Dry Progress/Results/Core Measures Suspected Sepsis Recent Fever Within 48 Hours: No Infection Criteria Present: None New/Unexplained Altered Menta: No Sepsis Screen: No Definite Risk SIRS Temperature:98.1 Pulse: 78 Respiratory Rate: 16 Laboratory Tests 02/08/18 12:17: White Blood Count 8.3 Blood Pressure 136 /79 Mean: 98 Laboratory Tests 02/08/18 12:17: Creatinine 1.34H, Platelet Count 294, Total Bilirubin 0.8 Results/Orders Lab Results Laboratory Tests Test 02/08/18 12:17 02/08/18 13:22 Range/Units White Blood Count 8.3 4.3-11.0 10^3/uL Red Blood Count 4.72 4.35-5.85 10^6/uL Hemoglobin 14.7 13.3-17.7 G/DL Hematocrit 42 40-54 % Mean Corpuscular Volume 89 80-99 FL Mean Corpuscular Hemoglobin 31 25-34 PG Mean Corpuscular Hemoglobin Concent 35 32-36 G/DL Red Cell Distribution Width 13.7 10.0-14.5 % Platelet Count 294 130-400 10^3/uL Mean Platelet Volume 9.5 7.4-10.4 FL Neutrophils (%) (Auto) 70 42-75 % Lymphocytes (%) (Auto) 17 12-44 % Monocytes (%) (Auto) 11 0-12 % Eosinophils (%) (Auto) 2 0-10 % Basophils (%) (Auto) 1 0-10 % Neutrophils # (Auto) 5.8 1.8-7.8 X 10^3 Lymphocytes # (Auto) 1.4 1.0-4.0 X 10^3 Monocytes # (Auto) 0.9 0.0-1.0 X 10^3 Eosinophils # (Auto) 0.2 0.0-0.3 10^3/uL Basophils # (Auto) 0.0 0.0-0.1 10^3/uL Sodium Level 134 L 135-145 MMOL/L Potassium Level 3.4 L 3.6-5.0 MMOL/L Chloride Level 100 98-107 MMOL/L Carbon Dioxide Level 24 21-32 MMOL/L Anion Gap 10 5-14 MMOL/L Blood Urea Nitrogen 20 H 7-18 MG/DL Creatinine 1.34 H 0.60-1.30 MG/DL Estimat Glomerular Filtration Rate 52 BUN/Creatinine Ratio 15 Glucose Level 115 H 70-105 MG/DL Calcium Level 9.6 8.5-10.1 MG/DL Corrected Calcium 9.5 8.5-10.1 MG/DL Total Bilirubin 0.8 0.1-1.0 MG/DL Aspartate Amino Transf (AST/SGOT) 15 5-34 U/L Alanine Aminotransferase (ALT/SGPT) 23 0-55 U/L Alkaline Phosphatase 55 40-136 U/L Total Protein 8.0 6.4-8.2 GM/DL Albumin 4.1 3.2-4.5 GM/DL Urine Color JANAE H Urine Clarity CLEAR Urine pH 6 5-9 Urine Specific Clymer 1.020 1.016-1.022 Urine Protein 2+ H NEGATIVE Urine Glucose (UA) NEGATIVE NEGATIVE Urine Ketones NEGATIVE NEGATIVE Urine Nitrite NEGATIVE NEGATIVE Urine Bilirubin NEGATIVE NEGATIVE Urine Urobilinogen 1 NORMAL MG/DL Urine Leukocyte Esterase NEGATIVE NEGATIVE Urine RBC (Auto) 3+ H NEGATIVE Urine RBC 5-10 H /HPF Urine WBC 0-2 /HPF Urine Squamous Epithelial Cells 2-5 /HPF Urine Crystals PRESENT H /LPF Urine Amorphous Sediment FEW HAYLEY URATES H /LPF Urine Bacteria FEW H /HPF Urine Casts NONE /LPF Urine Mucus NEGATIVE /LPF Urine Culture Indicated YES My Orders Orders - KENA THAKUR APRN Cbc With Automated Diff (02/08/18 12:05) Comprehensive Metabolic Panel (02/08/18 12:05) Ct Head Wo (02/08/18 12:05) Iv Heplock-Insert (Order) (02/08/18 12:05) Ua Culture If Indicated (02/08/18 12:05) Fentanyl Injection (Sublimaze Injection (02/08/18 12:15) Ondansetron Injection (Zofran Injectio (02/08/18 12:15) Abdomen/Kub 1view (02/08/18 12:15) Ns Iv 1000 Ml (Sodium Chloride 0.9%) (02/08/18 13:00) Urine Culture (02/08/18 13:22) Medications Given in ED Current Medications Medications Dose Ordered Sig/Dominik Route Start Time Stop Time Status Last Admin Dose Admin Fentanyl Citrate 50 mcg ONCE ONCE IVP 02/08/18 12:15 02/08/18 12:16 DC 02/08/18 12:28 50 MCG Ondansetron HCl 4 mg ONCE ONCE IVP 02/08/18 12:15 02/08/18 12:16 DC 02/08/18 12:28 4 MG Vital Signs/I&O 02/08/18 11:47 Temp 98.1 Pulse 78 Resp 16 B/P (MAP) 136/79 (98) Pulse Ox 96 Capillary Refill : Less Than 3 Seconds Blood Pressure Mean: 98 Diagnostic Imaging Diagonstic Imaging: CT Comments NAME: SANTI SCHMIDT [facility] REC#: [id number] PT STATUS: REG ER : 1940 PHYSICIAN: KENA THAKUR APRN ADMIT DATE: 02/08/18/ER Draft Date of Exam:02/08/18 CT HEAD WO CLINICAL INDICATION: Patient with neck pain, dizziness and weakness all over. Patient fell twice a month ago. EXAM: Axial CT scan of brain performed without IV contrast. COMPARISON: None. FINDINGS: There is skull base streak artifact which obscures portions of brainstem and posterior fossa. There is skull streak artifact which also obscures the frontal lobe region. There is diffuse brain parenchymal volume loss with the frontal lobes affected the most and left cerebral hemisphere affected more in the right side. There is patchy areas of low-attenuation changes seen within both cerebral hemispheres which may be related to chronic small vessel ischemic disease. There is no gross CT evidence of acute cerebral infarct, intracranial hemorrhage, brain herniation, or midline shift. There is no hydrocephalus. Basal cisterns are unremarkable. Extra-cranial soft tissue, skull, and orbits are unremarkable. There is a moderate-sized mucus retention cyst right maxillary sinus. Temporal bone structures show no significant abnormality. IMPRESSION: 1: There is no gross CT evidence of acute intracranial process. 2: There is diffuse brain parenchymal volume loss and suspected chronic small vessel ischemic disease. 3: Right maxillary sinus disease. Dictated on workstation # [id number] Dict: 02/08/18 1249 Trans: 02/08/18 1258 [facility] [id number] Interpreted by: LYRIC ROCHA MD Electronically signed by: Departure Impression Primary Impression: Post-herpetic trigeminal neuralgia Additional Impressions: Weakness Right maxillary sinusitis Disposition: HOME, SELF-CARE Condition: Stable Departure-Patient Inst. Decision time for Depature: 12:21 Referrals: EVIE SALDIVAR DO (PCP/Family) Primary Care Physician Patient Instructions: Generalized Weakness Add. Discharge Instructions: 1. Pain medication as directed 2. Follow-up with your doctor next week 3. All discharge instructions reviewed with patient and/or family. Voiced understanding. Scripts Amoxicillin/Potassium Clav (Augmentin 875-125 Tablet) 1 Each Tablet 1 EACH PO BID, #14 TAB . Prov: KENA THAKUR APRN 02/08/18 Valacyclovir HCl (Valacyclovir) 1,000 Mg Tablet 1000 MG PO TID, #15 TAB Prov: KENA THAKUR APRN 02/08/18 Hydrocodone/Acetaminophen (Hydrocodone-Acetamin 5-325 mg) 1 Each Tablet 1 EACH PO Q4H PRN for PAIN-MODERATE, #10 TAB Prov: KENA THAKUR APRN 02/08/18 KENA THAKUR APRN Feb 08, 2018 12:21
[2018-02-08 12:24] LABS: BASOPHILS % (AUTO) 1 % (0-10); EOSINOPHILS # (AUTO) 0.2 10^3/uL (0.0-0.3); EOSINOPHILS % (AUTO) 2 % (0-10); HEMATOCRIT 42 % (40-54); HEMOGLOBIN 14.7 G/DL (13.3-17.7); LYMPHOCYTES # (AUTO) 1.4 X 10^3 (1.0-4.0); LYMPHOCYTES % (AUTO) 17 % (12-44); MEAN CORPUSCULAR HEMOGLOBIN 31 PG (25-34); MEAN CORPUSCULAR HGB CONC 35 G/DL (32-36); MEAN CORPUSCULAR VOLUME 89 FL (80-99); MEAN PLATELET VOLUME 9.5 FL (7.4-10.4); MONOCYTES # (AUTO) 0.9 X 10^3 (0.0-1.0); MONOCYTES % (AUTO) 11 % (0-12); NEUTROPHILS # (AUTO) 5.8 X 10^3 (1.8-7.8); NEUTROPHILS % (AUTO) 70 % (42-75); PLATELET COUNT 294 10^3/uL (130-400); RED BLOOD COUNT 4.72 10^6/uL (4.35-5.85); RED CELL DISTRIBUTION WIDTH 13.7 % (10.0-14.5); WHITE BLOOD COUNT 8.3 10^3/uL (4.3-11.0)
[2018-02-08 12:41] LABS: ALBUMIN 4.1 GM/DL (3.2-4.5); BILIRUBIN,TOTAL 0.8 MG/DL (0.1-1.0); CALCIUM 9.6 MG/DL (8.5-10.1); CREATININE SERUM 1.34 MG/DL (0.60-1.30); POTASSIUM 3.4 MMOL/L (3.6-5.0)
--- NOTE | 2018-02-08 12:58 | Diagnostic Imaging Report ---
CLINICAL INDICATION: Patient with neck pain, dizziness and weakness all over. Patient fell twice a month ago. EXAM: Axial CT scan of brain performed without IV contrast. COMPARISON: None. FINDINGS: There is skull base streak artifact which obscures portions of brainstem and posterior fossa. There is skull streak artifact which also obscures the frontal lobe region. There is diffuse brain parenchymal volume loss with the frontal lobes affected the most and left cerebral hemisphere affected more in the right side. There is patchy areas of low-attenuation changes seen within both cerebral hemispheres which may be related to chronic small vessel ischemic disease. There is no gross CT evidence of acute cerebral infarct, intracranial hemorrhage, brain herniation, or midline shift. There is no hydrocephalus. Basal cisterns are unremarkable. Extra-cranial soft tissue, skull, and orbits are unremarkable. There is a moderate-sized mucus retention cyst right maxillary sinus. Temporal bone structures show no significant abnormality. IMPRESSION: 1: There is no gross CT evidence of acute intracranial process. 2: There is diffuse brain parenchymal volume loss and suspected chronic small vessel ischemic disease. 3: Right maxillary sinus disease. Dictated by: Dictated on workstation # [id number]
[2018-02-08] MEDS ORDERED: NS IV 1000 ML 1,000 ML IV SCH (13:00)
--- NOTE | 2018-02-08 13:02 | Diagnostic Imaging Report ---
Indication: Right-sided abdominal pain KUB 1:16 PM Bowel gas pattern is normal. There are no pathologic masses or calcifications. Impression: Negative abdomen Dictated by: Dictated on workstation # [id number]
[2018-02-08] MEDS ORDERED: HYDR-3812 PO (13:11)
[2018-02-08] MEDS ORDERED: AMOX-358 PO ×2 (13:11→14:21)
[2018-02-08 13:30] LABS: BILIRUBIN,URINE NEGATIVE (NEGATIVE); CLARITY,URINE CLEAR; COLOR,URINE AMBER; GLUCOSE, URINE (UA) NEGATIVE (NEGATIVE); KETONES,URINE NEGATIVE (NEGATIVE); LEUKOCYTE ESTERASE ,URINE NEGATIVE (NEGATIVE); NITRITE,URINE NEGATIVE (NEGATIVE); PH,URINE 6 (5-9); PROTEIN,URINE 2+ (NEGATIVE); UROBILINOGEN,URINE 1 MG/DL (NORMAL)
[2018-02-08 13:38] LABS: AMORPHOUS SEDIMENT,UR FEW AMOR URATES /LPF; BACTERIA,URINE FEW /HPF; WBC,URINE 0-2 /HPF
[2018-02-08] MEDS ORDERED: VALA1000 PO (14:19)
[2018-02-08 14:25] VITALS: BP 117/69
== END 2018-02-08 14:25 | disposition home or self-care (01) ==
LOC: EDUNIT# 11:28 → ER 11:30
DX: B02.22 Postherpetic trigeminal neuralgia (principal); R42 Dizziness and giddiness; M54.2 Cervicalgia; J01.00 Acute maxillary sinusitis, unspecified; K21.9 Gastro-esophageal reflux disease without esophagitis; F41.9 Anxiety disorder, unspecified; Z86.19 Personal history of other infectious and parasitic diseases; Z87.891 Personal history of nicotine dependence; Z87.442 Personal history of urinary calculi; Z87.19 Personal history of other diseases of the digestive system
CPT/HCPCS: 36415; 51701; 70450; 74018; 80053; 81000; 85025; 87088; 96361; 96374; 96375

== ENCOUNTER 2019-07-23 10:48 | Emergency (ER) | payer MEDICARE, OTHER ==
[~2019-07-23] VITALS: Ht 190.5 cm; Wt 108.8 kg
[~2019-07-23 10:48] MED LIST changes: +AMOX-358 PO; +HYDR-3812 PO; -IBUP-2055 PO; +IBUP-2473 PO; +PYRI50TA PO; -PYRI50TA10 PO
--- NOTE | 2019-07-23 11:39 | ED Lower Extremity ---
General Chief Complaint: Lower Extremity Stated Complaint: R LEG WEAKNESS/PAIN Nursing Triage Note: Pt to ED in wheelchair. Pt reports having R knee pain for a year. Pt saw PCP last month and was ordered an xray but has not had xray taken. Pt c/o R knee popping and pain. Pt reports increased weakness over the last week. Pt was walking with a walker but is now having to use a wheelchair. Nursing Sepsis Screen: No Definite Risk Source: patient Exam Limitations: no limitations History of Present Illness Date Seen by Provider: Jul 23, 2019 Time Seen by Provider: 11:35 Initial Comments To ER with pain in the right leg. He's been having a knee pain popping sensation in the right knee for about a year. He had an MRI and had a known meniscus injury but was told it would heal on its own. Over the past one week he's been unable to ambulate because of pain in the right leg that extends from the right buttock all the way down to the toes. He fell once because of the weakness in the right leg. Onset: just prior to arrival Severity: moderate Pain/Injury Location: right leg Modifying Factors: Worse With Movement Allergies and Home Medications Allergies Coded Allergies: No Known Drug Allergies (Unverified , 11/28/17) Home Medications Amoxicillin/Potassium Clav 1 Each Tablet, 1 EACH PO BID . Prescribed by: KENA THAKUR on 02/08/18 1421 Duloxetine HCl 30 Mg Capsule.dr, 30 MG PO DAILY Prescribed by: KARISSA GIORDANO on 12/10/17 1206 Hydrochlorothiazide 12.5 Mg Capsule, 12.5 MG PO DAILY@0900 Prescribed by: KARISSA GIORDANO on 12/10/17 1206 Hydrocodone/Acetaminophen 1 Each Tablet, 1 EACH PO Q4H PRN for PAIN-MODERATE Prescribed by: KENA THAKUR on 02/08/18 1311 Ibuprofen 200 Mg Tablet, 400 MG PO Q6H PRN for PAIN-MILD Prescribed by: KARISSA GIORDANO on 12/10/17 1206 Neomycin Yañez/Bacitrac Zn/Poly 28.3 Gm Oint...g., 0 GM TOP BID Prescribed by: KARISSA GIORDANO on 12/10/17 1206 Pyridoxine HCl 50 Mg Tablet, 50 MG PO DAILY@0700 Prescribed by: KARISSA GIORDANO on 12/10/17 1206 Valacyclovir HCl 1,000 Mg Tablet, 1,000 MG PO TID Prescribed by: NERY POOL on 01/29/18 1321 Valacyclovir HCl 1,000 Mg Tablet, 1,000 MG PO TID Prescribed by: KENA THAKUR on 02/08/18 1419 Valsartan 160 Mg Tablet, 160 MG PO DAILY Prescribed by: KARISSA GIORDANO on 12/10/17 1206 Patient Home Medication List Home Medication List Reviewed: Yes Review of Systems Constitutional: see HPI EENTM: see HPI Respiratory: no symptoms reported Cardiovascular: no symptoms reported Genitourinary: no symptoms reported Musculoskeletal: see HPI Skin: no symptoms reported Psychiatric/Neurological: No Symptoms Reported Past Rfdyqnx-Midaoz-Mwrpri Hx Patient Social History Alcohol Use: Denies Use Recreational Drug Use: No Former Smoker, Quit: Jun 04, 2005 2nd Hand Smoke Exposure: No Recent Foreign Travel: No Contact w/Someone Who Travel: No Recent Infectious Disease Expo: No Recent Hopitalizations: No Immunizations Up To Date Date of Pneumonia Vaccine: Mar 30, 2017 Seasonal Allergies Seasonal Allergies: No Past Medical History Surgeries: Yes (lithotripsy, kidney ) Respiratory: Yes (uses Albuterol inhaler prn, not often) Currently Using CPAP: No Cardiac: Yes Neurological: No Genitourinary: Yes (sees Dr. Win as urologist, has 1 stone & 1 cyst in Lt kidney) Kidney Stones Gastrointestinal: Yes (sees Dr. Asif, had a scope ) Gastroesophageal Reflux, Diverticulosis Musculoskeletal: Yes (Rt knee demetrius, falls) Arthritis, Chronic Back Pain Endocrine: No HEENT: No (wears glasses) Hearing Impairment: Denies Cancer: No Psychosocial: No Sleep Difficulties, Anxiety Integumentary: No Recent Skin Changes Blood Disorders: No Adverse Reaction/Blood Tranf: No Physical Exam Vital Signs Vital Signs - First Documented 07/23/19 11:14 Temp 36.7 Pulse 88 Resp 14 B/P (MAP) 94/62 (73) Pulse Ox 96 O2 Delivery Room Air Capillary Refill : Less Than 3 Seconds Height, Weight, BMI Height: 6'3.00" Weight: 256lbs. 11.2oz. 116.071838em; 29.00 BMI Method:Stated General Appearance: WD/WN, no apparent distress Neck: non-tender, full range of motion Respiratory: normal breath sounds, no respiratory distress, no accessory muscle use Hips: right hip pain Legs: right leg pain Knees: right knee soft tissue tenderness, right knee swelling Neurologic/Psychiatric: alert, normal mood/affect, oriented x 3 Skin: normal color, warm/dry There is a small joint effusion palpable on the right knee, no erythema to any part of the leg. His dorsalis pedis pulse is 1+. Foot is warm. No ulcers or wounds. Calf is nontender and without erythema. Progress/Results/Core Measures Results/Orders Lab Results Laboratory Tests Test 07/23/19 11:47 Range/Units White Blood Count 9.8 4.3-11.0 10^3/uL Red Blood Count 4.73 4.35-5.85 10^6/uL Hemoglobin 14.3 13.3-17.7 G/DL Hematocrit 42 40-54 % Mean Corpuscular Volume 88 80-99 FL Mean Corpuscular Hemoglobin 30 25-34 PG Mean Corpuscular Hemoglobin Concent 35 32-36 G/DL Red Cell Distribution Width 14.0 10.0-14.5 % Platelet Count 236 130-400 10^3/uL Mean Platelet Volume 9.4 7.4-10.4 FL Neutrophils (%) (Auto) 66 42-75 % Lymphocytes (%) (Auto) 23 12-44 % Monocytes (%) (Auto) 10 0-12 % Eosinophils (%) (Auto) 1 0-10 % Basophils (%) (Auto) 1 0-10 % Neutrophils # (Auto) 6.4 1.8-7.8 X 10^3 Lymphocytes # (Auto) 2.3 1.0-4.0 X 10^3 Monocytes # (Auto) 1.0 0.0-1.0 X 10^3 Eosinophils # (Auto) 0.1 0.0-0.3 10^3/uL Basophils # (Auto) 0.1 0.0-0.1 10^3/uL Sodium Level 133 L 135-145 MMOL/L Potassium Level 3.7 3.6-5.0 MMOL/L Chloride Level 100 98-107 MMOL/L Carbon Dioxide Level 20 L 21-32 MMOL/L Anion Gap 13 5-14 MMOL/L Blood Urea Nitrogen 16 7-18 MG/DL Creatinine 1.36 H 0.60-1.30 MG/DL Estimat Glomerular Filtration Rate 51 BUN/Creatinine Ratio 12 Glucose Level 99 70-105 MG/DL Calcium Level 9.4 8.5-10.1 MG/DL My Orders Orders - KENA THAKUR APRN Knee, Right, 3 Views (07/23/19 11:25) Us Venous Lower Ext Rt (07/23/19 11:33) Ct Lumbar Spine Wo (07/23/19 11:33) Cbc With Automated Diff (07/23/19 11:33) Basic Metabolic Panel (07/23/19 11:33) Ua Culture If Indicated (07/23/19 11:33) Ed Iv/Invasive Line Start (07/23/19 11:33) Ns Iv 500 Ml (Sodium Chloride 0.9%) (07/23/19 11:45) Ketorolac Injection (Toradol Injection) (07/23/19 11:45) Hydrocodone/Apap 5/325 Tablet (Lortab 5 (07/23/19 11:41) Medications Given in ED Current Medications Medications Dose Ordered Sig/Dominik Route Start Time Stop Time Status Last Admin Dose Admin Acetaminophen/ Hydrocodone Bitart 1 tab STK-MED ONCE .ROUTE 07/23/19 11:41 07/23/19 11:47 DC 07/23/19 11:55 1 TAB Ketorolac Tromethamine 15 mg ONCE ONCE IVP 07/23/19 11:45 07/23/19 11:46 DC 07/23/19 11:51 15 MG Vital Signs/I&O 07/23/19 11:14 Temp 36.7 Pulse 88 Resp 14 B/P (MAP) 94/62 (73) Pulse Ox 96 O2 Delivery Room Air Blood Pressure Mean: 73 Diagnostic Imaging Diagonstic Imaging: CT Comments NAME: SANTI SCHMIDT [facility] REC#: [id number] PT STATUS: REG ER : 1940 PHYSICIAN: KENA THAKUR APRN ADMIT DATE: 07/23/19/ER Draft Date of Exam:07/23/19 CT LUMBAR SPINE WO PROCEDURE: CT lumbar spine without contrast. TECHNIQUE: Multiple contiguous axial images were obtained through the lumbar spine without the use of intravenous contrast. Sagittal and coronal reformations were then performed. Auto Exposure Controls were utilized during the CT exam to meet ALARA standards for radiation dose reduction. INDICATION: Falls, back pain, right leg pain. COMPARISON: No priors. FINDINGS: There are left greater than right multiple renal calculi without demonstrated hydronephrosis. Bilateral low-density renal nodules are presumptively cysts but incompletely evaluated at this study. There is nonaneurysmal aortic atherosclerosis. No paravertebral mass, hemorrhage, or fluid collection. Lumbar statures are normal. The alignment is normal. The pedicles and pars are intact. No acute or chronic fracture. No paravertebral hemorrhage. The partially visualized sacral alae are intact. There are degenerative changes to the SI joints without diastasis. There are degenerative changes to the discs, endplates, and facets throughout the lumbar spine, greatest at L4-L5 and L5-S1. There is, however, no substantial degree of spinal canal stenosis. At L5-S1, there is mild right and [id number] left chronic appearing foraminal stenosis. IMPRESSION: Degenerative changes without high-grade canal stenosis. No fracture or traumatic malalignment. Nonaneurysmal atherosclerosis. Nonobstructive renal calculus and renal nodules, likely cystic but incompletely evaluated. Dictated on workstation # [id number] Dict: 07/23/19 1211 Trans: 07/23/19 1217 [id number] Interpreted by: RAJAT SWAN Electronically signed by: NAME: SANTI SCHMIDT [place] REC#: [id number] PT STATUS: REG ER : 1940 PHYSICIAN: KENA THAKUR APRN ADMIT DATE: 07/23/19/ER Signed Date of Exam:07/23/19 KNEE, RIGHT, 3 VIEWS Indication: Chronic right knee pain 3 views the right knee show no acute fracture or dislocation. Appears be an old avulsion of the anterior tibial apophysis. There is calcific atherosclerosis of the popliteal artery. Joint spaces are well-maintained. Articular surfaces are smooth. IMPRESSION: No acute abnormality seen in the knee. Dictated by: Dictated on workstation # [id number] Dict: 07/23/19 1230 Trans: 07/23/19 1231 [id number] Interpreted by: NERY FOWLER MD Electronically signed by: NERY FOWLER MD 07/23/19 1231 NAME: SANTI SCHMIDT [facility] REC#: [id number] PT STATUS: REG ER : 1940 PHYSICIAN: KENA THAKUR APRN ADMIT DATE: 07/23/19/ER Draft Date of Exam:07/23/19 US VENOUS LOWER EXT RT PROCEDURE: US right lower extremity venous. TECHNIQUE: Multiple real-time grayscale images were obtained over the right lower extremity in various projections. Additional spectral analysis and color Doppler duplex images were also obtained. INDICATION: Right leg weakness. FINDINGS: Femoropopliteal deep venous system is widely patent. No deep or superficial thrombus. There is an elongated unilocular simple fluid collection in the popliteal fossa, presumed Gilbert's cyst measuring 2.6 x 1.4 cm in axial dimension with along axis length of 5.1 cm. 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 Decision time for Depature: 13:34 Referrals: EVIE SALDIVAR DO (PCP/Family) Primary Care Physician Patient Instructions: Gilbert's (Popliteal) Cyst, Radiculopathy Add. Discharge Instructions: 1. Call your primary care provider's office to make an appointment to be seen for follow-up either this week or next. Medication as directed. All discharge instructions reviewed with patient and/or family. Voiced understanding. Scripts Hydrocodone Bit/Acetaminophen (Hydrocodone/Acetaminophen 5/325mg Tablet) 1 Tab Tab 1 EACH PO Q4-6HR PRN for PAIN-MODERATE MDD 10 for 3 Days, #14 TAB Prov: KENA THAKUR APRN 07/23/19 Prednisone (Prednisone) 20 Mg Tab 40 MG PO DAILY, #8 TAB 0 Refills Prov: KENA THAKUR APRN 07/23/19 KENA THAKUR APRN Jul 23, 2019 11:39
[2019-07-23] MEDS ORDERED: HYDROcodone/APAP 5 MG/325 MG (LORTAB) TAB ONE (11:41)
[2019-07-23] MEDS ORDERED: NS IV 500 ML 500 ML IV SCH (11:45)
[2019-07-23] MEDS ORDERED: KETOROLAC 30 MG/ML VIAL IVP ONE (11:45)
[2019-07-23 11:56] LABS: BASOPHILS # (AUTO) 0.1 10^3/uL (0.0-0.1); BASOPHILS % (AUTO) 1 % (0-10); EOSINOPHILS # (AUTO) 0.1 10^3/uL (0.0-0.3); EOSINOPHILS % (AUTO) 1 % (0-10); HEMATOCRIT 42 % (40-54); HEMOGLOBIN 14.3 G/DL (13.3-17.7); LYMPHOCYTES # (AUTO) 2.3 X 10^3 (1.0-4.0); LYMPHOCYTES % (AUTO) 23 % (12-44); MEAN CORPUSCULAR HEMOGLOBIN 30 PG (25-34); MEAN CORPUSCULAR HGB CONC 35 G/DL (32-36); MEAN CORPUSCULAR VOLUME 88 FL (80-99); MEAN PLATELET VOLUME 9.4 FL (7.4-10.4); MONOCYTES % (AUTO) 10 % (0-12); NEUTROPHILS # (AUTO) 6.4 X 10^3 (1.8-7.8); NEUTROPHILS % (AUTO) 66 % (42-75); PLATELET COUNT 236 10^3/uL (130-400); WHITE BLOOD COUNT 9.8 10^3/uL (4.3-11.0)
[2019-07-23 12:15] LABS: CALCIUM 9.4 MG/DL (8.5-10.1); CREATININE SERUM 1.36 MG/DL (0.60-1.30); POTASSIUM 3.7 MMOL/L (3.6-5.0)
--- NOTE | 2019-07-23 12:18 | Diagnostic Imaging Report ---
PROCEDURE: CT lumbar spine without contrast. TECHNIQUE: Multiple contiguous axial images were obtained through the lumbar spine without the use of intravenous contrast. Sagittal and coronal reformations were then performed. Auto Exposure Controls were utilized during the CT exam to meet ALARA standards for radiation dose reduction. INDICATION: Falls, back pain, right leg pain. COMPARISON: No priors. FINDINGS: There are left greater than right multiple renal calculi without demonstrated hydronephrosis. Bilateral low-density renal nodules are presumptively cysts but incompletely evaluated at this study. There is nonaneurysmal aortic atherosclerosis. No paravertebral mass, hemorrhage, or fluid collection. Lumbar statures are normal. The alignment is normal. The pedicles and pars are intact. No acute or chronic fracture. No paravertebral hemorrhage. The partially visualized sacral alae are intact. There are degenerative changes to the SI joints without diastasis. There are degenerative changes to the discs, endplates, and facets throughout the lumbar spine, greatest at L4-L5 and L5-S1. There is, however, no substantial degree of spinal canal stenosis. At L5-S1, there is mild right and [id number] left chronic appearing foraminal stenosis. IMPRESSION: Degenerative changes without high-grade canal stenosis. No fracture or traumatic malalignment. Nonaneurysmal atherosclerosis. Nonobstructive renal calculus and renal nodules, likely cystic but incompletely evaluated. Dictated by: Dictated on workstation # [id number]
--- NOTE | 2019-07-23 12:33 | Diagnostic Imaging Report ---
Indication: Chronic right knee pain 3 views the right knee show no acute fracture or dislocation. Appears be an old avulsion of the anterior tibial apophysis. There is calcific atherosclerosis of the popliteal artery. Joint spaces are well-maintained. Articular surfaces are smooth. IMPRESSION: No acute abnormality seen in the knee. Dictated by: Dictated on workstation # [id number]
--- NOTE | 2019-07-23 13:16 | Diagnostic Imaging Report ---
PROCEDURE: US right lower extremity venous. TECHNIQUE: Multiple real-time grayscale images were obtained over the right lower extremity in various projections. Additional spectral analysis and color Doppler duplex images were also obtained. INDICATION: Right leg weakness. FINDINGS: Femoropopliteal deep venous system is widely patent. No deep or superficial thrombus. There is an elongated unilocular simple fluid collection in the popliteal fossa, presumed Gilbert's cyst measuring 2.6 x 1.4 cm in axial dimension with along axis length of 5.1 cm. 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 Dictated by: Dictated on workstation # [id number]
[2019-07-23] MEDS ORDERED: PRD20T PO (13:35)
[2019-07-23] MEDS ORDERED: ACHD5005 PO (13:35)
[2019-07-23 13:41] VITALS: BP 91/55
== END 2019-07-23 13:50 | disposition home or self-care (01) ==
LOC: EDUNIT# 10:48 → ER 10:50
DX: M54.16 Radiculopathy, lumbar region (principal); M71.21 Synovial cyst of popliteal space [Baker], right knee; F41.9 Anxiety disorder, unspecified; Z87.891 Personal history of nicotine dependence
CPT/HCPCS: 36415; 72131; 73562; 80048; 85025